=== PATIENT | male | born 1950 | race Caucasian/White ===

== ENCOUNTER → 2016-07-03 | Outpatient (CLI) | payer OTHER ==
[2016-07-03 13:01] LABS: INR 2.72
== END ==
LOC: M LAB 12:04
PROVIDERS: ATTEND Physician Assistant
DX: I48.91 Unspecified atrial fibrillation (principal)

== ENCOUNTER → 2016-08-02 | Outpatient (CLI) | payer MEDICARE, OTHER ==
[2016-08-02 15:28] LABS: INR 2.56
== END ==
LOC: M LAB 15:05
PROVIDERS: ATTEND Physician Assistant
DX: I48.91 Unspecified atrial fibrillation (principal)

== ENCOUNTER → 2016-08-30 | Outpatient (CLI) | payer OTHER ==
[2016-08-30 17:50] LABS: INR 2.15
== END ==
LOC: M LAB 16:28
PROVIDERS: ATTEND Physician Assistant
DX: I48.91 Unspecified atrial fibrillation (principal)

== ENCOUNTER → 2016-10-30 | Outpatient (CLI) | payer OTHER ==
[2016-10-30 14:59] LABS: INR 2.23
== END ==
LOC: M LAB 13:56
PROVIDERS: ATTEND Physician Assistant
DX: I48.91 Unspecified atrial fibrillation (principal)

== ENCOUNTER → 2016-11-26 | Outpatient (CLI) | payer OTHER ==
[2016-11-26 10:02] LABS: INR 2.19
[2016-11-26 10:12] LABS: MEAN CORPUSCULAR HEMOGLOBIN 34.3 pg (27.0-33.0); MEAN CORPUSCULAR HGB CONC 34.1 g/dl (32.0-36.5); MEAN CORPUSCULAR VOLUME 100.5 fl (80.0-96.0); RED CELL DISTRIBUTION WIDTH 12.9 % (11.5-14.5); WHITE BLOOD COUNT 8.2 K/mm3 (4.0-10.0)
== END ==
LOC: M LAB 09:33
PROVIDERS: ATTEND Nurse Practitioner Family
DX: I48.91 Unspecified atrial fibrillation (principal)

== ENCOUNTER → 2016-12-03 | Outpatient (CLI) | payer OTHER ==
[2016-12-03 13:00] LABS: INR 1.91
== END ==
LOC: M LAB 11:21
PROVIDERS: ATTEND Physician Assistant
DX: I48.91 Unspecified atrial fibrillation (principal)

== ENCOUNTER → 2016-12-12 | Outpatient (CLI) | payer OTHER ==
[2016-12-12 12:32] LABS: INR 2.12
[2016-12-12 12:45] LABS: MEAN CORPUSCULAR HEMOGLOBIN 34.3 pg (27.0-33.0); MEAN CORPUSCULAR HGB CONC 33.8 g/dl (32.0-36.5); MEAN CORPUSCULAR VOLUME 101.2 fl (80.0-96.0); RED CELL DISTRIBUTION WIDTH 12.6 % (11.5-14.5); WHITE BLOOD COUNT 8.8 K/mm3 (4.0-10.0)
[2016-12-12 12:58] LABS: ALBUMIN 3.7 GM/DL (3.2-5.2); ALBUMIN/GLOBULIN RATIO 1.16 (1.00-1.93); ALKALINE PHOSPHATASE 43 U/L (45-117); ALT/SGPT 36 U/L (12-78); ANION GAP 6 MEQ/L (8-16); AST/SGOT 26 U/L (15-37); BILIRUBIN,TOTAL 1.1 MG/DL (0.2-1.0); BLOOD UREA NITROGEN 17 MG/DL (7-18); CALCIUM LEVEL 8.9 MG/DL (8.8-10.2); CARBON DIOXIDE LEVEL 28 MEQ/L (21-32); CHLORIDE LEVEL 109 MEQ/L (98-107); CHOLESTEROL LEVEL 155 MG/DL (<200); CREATININE FOR GFR 0.93 MG/DL (0.70-1.30); GLOMERULAR FILTRATION RATE > 60.0 (>49); GLUCOSE, FASTING 90 MG/DL (80-110); POTASSIUM SERUM 4.5 MEQ/L (3.5-5.1); SODIUM LEVEL 143 MEQ/L (136-145); TOTAL PROTEIN 6.9 GM/DL (6.4-8.2); TRIGLYCERIDES LEVEL 56 MG/DL (<150)
== END ==
LOC: M LAB 11:25
PROVIDERS: ATTEND Family Medicine
DX: I10 Essential (primary) hypertension (principal); Z79.01 Long term (current) use of anticoagulants; R73.01 Impaired fasting glucose

== ENCOUNTER → 2016-12-24 | Outpatient (CLI) | payer OTHER ==
[2016-12-24 14:41] LABS: INR 1.78
== END ==
LOC: M LAB 13:50
PROVIDERS: ATTEND Physician Assistant
DX: I48.91 Unspecified atrial fibrillation (principal)

== ENCOUNTER → 2017-01-07 | Outpatient (CLI) | payer OTHER ==
[2017-01-07 13:45] LABS: INR 2.33
== END ==
LOC: M LAB 12:58
PROVIDERS: ATTEND Physician Assistant
DX: I48.91 Unspecified atrial fibrillation (principal)

== ENCOUNTER → 2017-01-28 | Outpatient (CLI) | payer OTHER ==
[2017-01-28 14:02] LABS: INR 2.38
== END ==
LOC: M LAB 13:17
PROVIDERS: ATTEND Physician Assistant
DX: I48.91 Unspecified atrial fibrillation (principal)

== ENCOUNTER → 2017-01-28 | Outpatient (CLI) | payer OTHER ==
[2017-01-30 00:07] LABS: Lyme Disease IgG/IgM Antibodie <0.91 ISR (0.00-0.90); Lyme Disease IgM Ab Quantitati <0.80 index (0.00-0.79)
== END ==
LOC: M LAB 13:13
PROVIDERS: ATTEND Family Medicine
DX: R53.83 Other fatigue (principal); Z79.01 Long term (current) use of anticoagulants; I48.91 Unspecified atrial fibrillation

== ENCOUNTER → 2017-02-25 | Outpatient (CLI) | payer OTHER ==
[2017-02-25 15:06] LABS: INR 2.28
== END ==
LOC: M LAB 14:14
PROVIDERS: ATTEND Physician Assistant
DX: I48.91 Unspecified atrial fibrillation (principal)

== ENCOUNTER → 2017-03-27 | Outpatient (CLI) | payer OTHER ==
[2017-03-27 15:33] LABS: INR 1.96
== END ==
LOC: M LAB 14:58
PROVIDERS: ATTEND Nurse Practitioner Family
DX: I48.91 Unspecified atrial fibrillation (principal)

== ENCOUNTER → 2017-03-31 | Outpatient (CLI) | payer OTHER ==
--- NOTE | 2017-03-31 14:39 | REP ---
Chest x-ray: Two views. History: Fatigue. Comparison chest x-ray November 28, 2015. Findings: There is moderate to marked cardiac enlargement again noted unchanged from the comparison radiograph. Prior sternotomy wires are seen in there is evidence of an epicardial pacemaker wire overlying the heart. The aorta is somewhat tortuous. There is evidence of left atrial enlargement. These are unchanged findings. The lungs are symmetrically aerated and free of infiltrate. The diaphragms are flattened consistent with hyperinflation. Thoracic kyphosis is exaggerated and there are several minimal wedged thoracic vertebrae along with degenerative disc disease. This is unchanged as well. There are slightly prominent interstitial markings. Impression: Moderate to marked cardiomegaly. Postoperative changes. Hyperinflation. Prominent interstitial markings, edema versus fibrosis. These appear slightly more prominent than on the comparison radiograph. No visible pleural effusion. No focal infiltrate. Signed by Pola Balderas MD 03/31/2017 03:09 P
[2017-03-31 18:13] LABS: INR 2.39; MEAN CORPUSCULAR HEMOGLOBIN 33.3 pg (27.0-33.0); MEAN CORPUSCULAR HGB CONC 33.4 g/dl (32.0-36.5); MEAN CORPUSCULAR VOLUME 99.8 fl (80.0-96.0); PLATELET COUNT, AUTOMATED 266 10^3/uL (150-450); RED CELL DISTRIBUTION WIDTH 12.7 % (11.5-14.5); WHITE BLOOD COUNT 10.8 10^3/uL (4.0-10.0)
[2017-03-31 18:14] LABS: ADD MANUAL DIFFER YES; DIFF SLIDE NUMBER 116; POSITIVE DIFF POS FLAG
[2017-03-31 18:27] LABS: ALBUMIN 3.4 GM/DL (3.2-5.2); ALBUMIN/GLOBULIN RATIO 0.87 (1.00-1.93); ALKALINE PHOSPHATASE 60 U/L (45-117); ALT/SGPT 48 U/L (12-78); ANION GAP 9 MEQ/L (8-16); AST/SGOT 38 U/L (15-37); BILIRUBIN,TOTAL 1.2 MG/DL (0.2-1.0); BLOOD UREA NITROGEN 11 MG/DL (7-18); CARBON DIOXIDE LEVEL 29 MEQ/L (21-32); CHLORIDE LEVEL 103 MEQ/L (98-107); CREATININE FOR GFR 0.96 MG/DL (0.70-1.30); GLOMERULAR FILTRATION RATE > 60.0 (>49); GLUCOSE, FASTING 80 MG/DL (80-110); POTASSIUM SERUM 4.3 MEQ/L (3.5-5.1); SODIUM LEVEL 141 MEQ/L (136-145); TOTAL PROTEIN 7.3 GM/DL (6.4-8.2)
[2017-04-03 08:06] LABS: Lyme Disease IgG/IgM Antibodie <0.91 ISR (0.00-0.90); Lyme Disease IgM Ab Quantitati <0.80 index (0.00-0.79)
== END ==
LOC: M WUC 13:52
PROVIDERS: ATTEND Physician Assistant
DX: R53.83 Other fatigue (principal); Z79.01 Long term (current) use of anticoagulants

== ENCOUNTER → 2017-04-25 | Outpatient (CLI) | payer OTHER ==
[2017-04-25 09:28] LABS: INR 2.26
== END ==
LOC: M LAB 08:25
PROVIDERS: ATTEND Nurse Practitioner Family
DX: I48.91 Unspecified atrial fibrillation (principal)

== ENCOUNTER → 2017-05-23 | Outpatient (CLI) | payer OTHER ==
[2017-05-23 11:50] LABS: INR 2.39
== END ==
LOC: M LAB 11:09
PROVIDERS: ATTEND Nurse Practitioner Family
DX: Z79.01 Long term (current) use of anticoagulants (principal); I48.91 Unspecified atrial fibrillation

== ENCOUNTER → 2017-06-24 | Outpatient (CLI) | payer OTHER ==
[2017-06-24 13:37] LABS: INR 2.15; PROTHROMBIN TIME 24.8 SECONDS (12.4-14.5)
== END ==
LOC: M LAB 12:15
DX: I48.91 Unspecified atrial fibrillation (principal)
CPT/HCPCS: 85610

== ENCOUNTER → 2017-07-11 | Outpatient (CLI) | payer OTHER ==
[2017-07-11 14:25] LABS: INR 2.21; PROTHROMBIN TIME 25.3 SECONDS (12.4-14.5)
== END ==
LOC: M LAB 13:23
DX: I48.91 Unspecified atrial fibrillation (principal); Z79.01 Long term (current) use of anticoagulants
CPT/HCPCS: 85610

== ENCOUNTER → 2017-07-16 | Outpatient (CLI) | payer OTHER ==
[2017-07-16 11:50] LABS: INR 2.39
== END ==
LOC: M LAB 11:10
DX: I48.91 Unspecified atrial fibrillation (principal)
CPT/HCPCS: 85610

== ENCOUNTER → 2017-07-22 | Outpatient (CLI) | payer OTHER ==
[2017-07-22 13:40] LABS: INR 2.17
== END ==
LOC: M LAB 12:43
DX: I48.91 Unspecified atrial fibrillation (principal)
CPT/HCPCS: 85610

== ENCOUNTER 2017-08-08 12:38 | Day surgery (SDC) | payer OTHER ==
[2017-08-08] MEDS ORDERED: CETACAINE SPRAY 5GM As Ordered (13:15)
[2017-08-08] MEDS ORDERED: LIDOCAINE VISCOUS 2% SOLN 15ML UDC As Ordered (13:16)
[2017-08-08] MEDS: NS 1,000 ML IV (13:45)
[2017-08-08] MEDS ORDERED: MIDAZOLAM INJ 2 MG/2 ML VIAL (J2250) As Ordered ×2 (14:01)
[2017-08-08] MEDS: MIDAZOLAM INJ 2 MG/2 ML VIAL (J2250) IV (14:07)
== END 2017-08-08 15:01 | disposition home or self-care (01) ==
LOC: M OPP 12:38
DX: I34.0 Nonrheumatic mitral (valve) insufficiency (principal)
CPT/HCPCS: J2250

== ENCOUNTER → 2017-08-19 | Outpatient (CLI) | payer OTHER ==
[2017-08-19 15:03] LABS: INR 1.54; PROTHROMBIN TIME 18.9 SECONDS (12.4-14.5)
== END ==
LOC: M LAB 14:15
DX: I48.91 Unspecified atrial fibrillation (principal)
CPT/HCPCS: 85610

== ENCOUNTER → 2017-08-26 | Outpatient (CLI) | payer OTHER ==
[2017-08-26 12:36] LABS: INR 1.88; PROTHROMBIN TIME 22.2 SECONDS (12.4-14.5)
== END ==
LOC: M LAB 11:54
DX: I48.91 Unspecified atrial fibrillation (principal)
CPT/HCPCS: 85610

== ENCOUNTER → 2017-09-09 | Outpatient (CLI) | payer OTHER ==
[2017-09-09 12:06] LABS: INR 2.13; PROTHROMBIN TIME 24.6 SECONDS (12.4-14.5)
== END ==
LOC: M LAB 11:20
DX: I48.91 Unspecified atrial fibrillation (principal)
CPT/HCPCS: 85610

== ENCOUNTER → 2017-09-30 | Outpatient (CLI) | payer OTHER ==
[2017-09-30 14:50] LABS: INR 2.04; PROTHROMBIN TIME 23.7 SECONDS (12.4-14.5)
== END ==
LOC: M LAB 14:10
DX: I48.91 Unspecified atrial fibrillation (principal); Z79.01 Long term (current) use of anticoagulants
CPT/HCPCS: 85610

== ENCOUNTER → 2017-10-29 | Outpatient (CLI) | payer OTHER ==
[2017-10-29 11:45] LABS: INR 2.14; PROTHROMBIN TIME 24.6 SECONDS (12.4-14.5)
== END ==
LOC: M LAB 10:55
DX: I48.91 Unspecified atrial fibrillation (principal)
CPT/HCPCS: 85610

== ENCOUNTER → 2017-11-26 | Outpatient (CLI) | payer MEDICARE, OTHER ==
[2017-11-26 09:49] LABS: INR 2.45; PROTHROMBIN TIME 27.6 SECONDS (12.4-14.5)
== END ==
LOC: M LAB 08:43
DX: I48.91 Unspecified atrial fibrillation (principal)
CPT/HCPCS: 85610

== ENCOUNTER → 2017-12-19 | Outpatient (CLI) | payer OTHER ==
[2017-12-19 14:11] LABS: INR 1.84; PROTHROMBIN TIME 21.6 SECONDS (12.1-14.4)
== END ==
LOC: M LAB 12:39
DX: I48.91 Unspecified atrial fibrillation (principal)
CPT/HCPCS: 85610

== ENCOUNTER → 2018-01-02 | Outpatient (CLI) | payer OTHER ==
[2018-01-02 10:59] LABS: INR 2.78; PROTHROMBIN TIME 29.9 SECONDS (12.1-14.4)
== END ==
LOC: M LAB 10:11
DX: I48.91 Unspecified atrial fibrillation (principal); Z79.01 Long term (current) use of anticoagulants
CPT/HCPCS: 85610

== ENCOUNTER → 2018-01-09 | Outpatient (CLI) | payer OTHER ==
[2018-01-09 10:51] LABS: HEMATOCRIT 44.2 % (42.0-52.0); HEMOGLOBIN 14.8 g/dl (13.5-17.5); MEAN CORPUSCULAR HEMOGLOBIN 33.1 pg (27.0-33.0); MEAN CORPUSCULAR HGB CONC 33.5 g/dl (32.0-36.5); MEAN CORPUSCULAR VOLUME 98.9 fl (80.0-96.0); PLATELET COUNT, AUTOMATED 139 10^3/uL (150-450); RED BLOOD COUNT 4.47 10^6/uL (4.30-6.10); RED CELL DISTRIBUTION WIDTH 13.2 % (11.5-14.5); WHITE BLOOD COUNT 7.9 10^3/uL (4.0-10.0)
[2018-01-09 11:22] LABS: ALBUMIN 3.8 GM/DL (3.2-5.2); ALBUMIN/GLOBULIN RATIO 1.12 (1.00-1.93); ALKALINE PHOSPHATASE 46 U/L (45-117); ALT/SGPT 31 U/L (12-78); ANION GAP 10 MEQ/L (8-16); AST/SGOT 20 U/L (7-37); BLOOD UREA NITROGEN 23 MG/DL (7-18); CALCIUM LEVEL 8.6 MG/DL (8.8-10.2); CARBON DIOXIDE LEVEL 23 MEQ/L (21-32); CHLORIDE LEVEL 109 MEQ/L (98-107); CHOLESTEROL LEVEL 184 MG/DL (<200); CHOLESTEROL RISK RATIO 4.181 (<5); CREATININE FOR GFR 1.05 MG/DL (0.70-1.30); GLOMERULAR FILTRATION RATE > 60.0 (>49); GLUCOSE, FASTING 95 MG/DL (70-100); HDL CHOLESTEROL 44 MG/DL (>40); LDL CHOLESTEROL 122.6 MG/DL (<100); NON-HDL-C 140 MG/DL; POTASSIUM SERUM 4.3 MEQ/L (3.5-5.1); PROSTATIC SPECIFIC AG MONITOR 5.63 NG/ML (< 4.0); SODIUM LEVEL 142 MEQ/L (136-145); TOTAL PROTEIN 7.2 GM/DL (6.4-8.2); TRIGLYCERIDES LEVEL 87 MG/DL (<150)
[2018-01-09 11:28] LABS: TESTOSTERONE 231 NG/DL (241-827); TOTAL 25(OH) VITAMIN D 60.2 NG/ML (30.0-100.0)
[2018-01-09 12:17] LABS: ESTIMATED AVERAGE GLUCOSE 126 MG/DL (60-110)
== END ==
LOC: M LAB 10:11
DX: I11.9 Hypertensive heart disease without heart failure (principal); E11.9 Type 2 diabetes mellitus without complications; N40.0 Benign prostatic hyperplasia without lower urinary tract symptoms
CPT/HCPCS: 71046

== ENCOUNTER → 2018-01-21 | Outpatient (REF) | payer OTHER, MEDICARE ==
[2018-01-21 12:29] LABS: AMORPHOUS SEDIMENT SMALL (NEGATIVE); APPEARANCE, URINE TURBID (CLEAR); BACTERIA, URINE AUTO NEGATIVE (NEGATIVE); BILIRUBIN, URINE AUTO NEGATIVE (NEGATIVE); BLOOD, URINE BLOOD NEGATIVE (NEGATIVE); COLOR, URINE AMBER (YELLOW); GLUCOSE, URINE (UA) AUTO NEGATIVE (NEGATIVE); KETONE, URINE AUTO NEGATIVE (NEGATIVE); LEUKOCYTE ESTERASE, URINE AUTO NEGATIVE (NEGATIVE); MUCUS, URINE SMALL (NEGATIVE); NITRITE, URINE AUTO NEGATIVE (NEGATIVE); PROTEIN, URINE AUTO NEGATIVE (NEGATIVE); RBC, URINE AUTO 0 /HPF (0-3); SPECIFIC GRAVITY URINE AUTO 1.024 (1.002-1.035); SQUAMOUS EPITHELIAL CELL UR AU 0 /HPF (0-6); UROBILINOGEN, URINE AUTO 0.2 mg/dL (0.0-2.0); WBC, URINE AUTO 1 /HPF (0-3)
== END ==
LOC: M SMT 12:10
DX: R97.20 Elevated prostate specific antigen [PSA] (principal); Z79.899 Other long term (current) drug therapy
CPT/HCPCS: 81001

== ENCOUNTER → 2018-01-31 | Outpatient (CLI) | payer OTHER, MEDICARE | LOC: M SMT PRO 09:00 | DX: R97.20 Elevated prostate specific antigen [PSA] (principal) | CPT/HCPCS: G0416 ==

== ENCOUNTER → 2018-02-18 | Outpatient (CLI) | payer MEDICARE, OTHER ==
[2018-02-18 16:02] LABS: INR 2.06; PROTHROMBIN TIME 23.6 SECONDS (12.1-14.4)
== END ==
LOC: M LAB 15:14
DX: I48.91 Unspecified atrial fibrillation (principal)
CPT/HCPCS: 85610

== ENCOUNTER 2018-03-10 11:27 | Day surgery (SDC) | payer OTHER ==
[2018-03-10] MEDS: NS 1,000 ML IV (08:00)
== END 2018-03-10 14:02 | disposition home or self-care (01) ==
LOC: M OPP 11:27
DX: Z12.11 Encounter for screening for malignant neoplasm of colon (principal); K64.0 First degree hemorrhoids; K57.30 Diverticulosis of large intestine without perforation or abscess without bleeding; I10 Essential (primary) hypertension; Z86.79 Personal history of other diseases of the circulatory system; M19.90 Unspecified osteoarthritis, unspecified site; M62.831 Muscle spasm of calf; Z87.442 Personal history of urinary calculi; N40.1 Benign prostatic hyperplasia with lower urinary tract symptoms; Z79.01 Long term (current) use of anticoagulants; Z79.899 Other long term (current) drug therapy
CPT/HCPCS: G0121

== ENCOUNTER → 2018-03-18 | Outpatient (CLI) | payer OTHER ==
[2018-03-18 16:37] LABS: INR 2.15; PROTHROMBIN TIME 24.4 SECONDS (12.1-14.4)
== END ==
LOC: M LAB 15:08
DX: I48.91 Unspecified atrial fibrillation (principal)
CPT/HCPCS: 85610

== ENCOUNTER → 2018-04-16 | Outpatient (CLI) | payer OTHER ==
[2018-04-16 15:30] LABS: INR 2.87; PROTHROMBIN TIME 30.7 SECONDS (12.1-14.4)
== END ==
LOC: M LAB 14:29
DX: I48.91 Unspecified atrial fibrillation (principal)
CPT/HCPCS: 85610

== ENCOUNTER → 2018-05-19 | Outpatient (CLI) | payer OTHER ==
[2018-05-19 14:27] LABS: INR 2.49; PROTHROMBIN TIME 27.4 SECONDS (12.1-14.4)
== END ==
LOC: M LAB 13:22
DX: I48.91 Unspecified atrial fibrillation (principal)
CPT/HCPCS: 85610

== ENCOUNTER → 2018-07-04 | Outpatient (CLI) | payer MEDICARE ==
[~2018-07-04] MED LIST: ATEN25TA PO; COUM1TAB17 PO; MULTCAP12 PO; OMEG100011 PO; VITA200038 PO; VITA250L PO; ZOCO20TA PO; [UNRECOGNIZED DRUG - CODE] PO
[2018-07-04 12:44] LABS: PROSTATIC SPECIFIC AG MONITOR 5.05 NG/ML (< 4.00); THYROID STIMULATING HORMONE 1.6 uIU/ML (0.358-3.740)
[2018-07-04 13:26] LABS: HEMOGLOBIN A1c 5.8 %
== END ==
LOC: M LAB 11:27
PROVIDERS: ATTEND Family Medicine
DX: R53.83 Other fatigue (principal); Z79.899 Other long term (current) drug therapy

== ENCOUNTER → 2018-07-21 | Outpatient (CLI) | payer MEDICARE ==
[2018-07-21 14:53] LABS: HEMATOCRIT 43.6 % (42.0-52.0); HEMOGLOBIN 14.8 g/dl (13.5-17.5); MEAN CORPUSCULAR HEMOGLOBIN 34.1 pg (27.0-33.0); MEAN CORPUSCULAR HGB CONC 33.9 g/dl (32.0-36.5); MEAN CORPUSCULAR VOLUME 100.5 fl (80.0-96.0); PLATELET COUNT, AUTOMATED 141 10^3/uL (150-450); RED BLOOD COUNT 4.34 10^6/uL (4.30-6.10); WHITE BLOOD COUNT 7.7 10^3/uL (4.0-10.0)
[2018-07-21 15:07] LABS: BLOOD UREA NITROGEN 17 MG/DL (7-18); CALCIUM LEVEL 8.3 MG/DL (8.8-10.2); CARBON DIOXIDE LEVEL 25 MEQ/L (21-32); CHLORIDE LEVEL 109 MEQ/L (98-107); CREATININE FOR GFR 0.95 MG/DL (0.70-1.30); GLOMERULAR FILTRATION RATE > 60.0 (>49); GLUCOSE, FASTING 80 MG/DL (70-100); MAGNESIUM LEVEL 2.4 MG/DL (1.8-2.4); POTASSIUM SERUM 4.2 MEQ/L (3.5-5.1); SODIUM LEVEL 142 MEQ/L (136-145)
[2018-07-21 15:08] LABS: INR 2.64; PROTHROMBIN TIME 28.7 SECONDS (12.1-14.4)
== END ==
LOC: M LAB 14:16
PROVIDERS: ATTEND Physician Assistant
DX: I48.2 Chronic atrial fibrillation (principal); I11.9 Hypertensive heart disease without heart failure

== ENCOUNTER → 2018-08-19 | Outpatient (CLI) | payer MEDICARE ==
[2018-08-19 15:05] LABS: INR 2.78; PROTHROMBIN TIME 29.9 SECONDS (12.1-14.4)
== END ==
LOC: M LAB 14:23
PROVIDERS: ATTEND Physician Assistant
DX: I48.91 Unspecified atrial fibrillation (principal)

== ENCOUNTER → 2018-09-17 | Outpatient (CLI) | payer MEDICARE ==
[2018-09-17 14:24] LABS: INR 2.69; PROTHROMBIN TIME 29.2 SECONDS (12.1-14.4)
== END ==
LOC: M LAB 13:47
PROVIDERS: ATTEND Physician Assistant
DX: I48.91 Unspecified atrial fibrillation (principal)

== ENCOUNTER → 2018-10-15 | Outpatient (CLI) | payer MEDICARE ==
[2018-10-15 13:02] LABS: INR 2.56
== END ==
LOC: M LAB 12:02
PROVIDERS: ATTEND Physician Assistant
DX: I48.91 Unspecified atrial fibrillation (principal)

== ENCOUNTER 2018-11-07 21:34 | Emergency (ER) | payer MEDICARE ==
[~2018-11-07] VITALS: Ht 167.6 cm; Wt 79.1 kg
[2018-11-07 22:57] VITALS: BP 135/73
== END 2018-11-07 23:22 | disposition home or self-care (01) ==
LOC: M ED 21:34
DX: S31.33XA Puncture wound without foreign body of scrotum and testes, initial encounter (principal); X58.XXXA Exposure to other specified factors, initial encounter; Y92.89 Other specified places as the place of occurrence of the external cause; I10 Essential (primary) hypertension; I48.91 Unspecified atrial fibrillation; Z79.899 Other long term (current) drug therapy; Z79.01 Long term (current) use of anticoagulants

== ENCOUNTER → 2018-11-17 | Outpatient (CLI) | payer MEDICARE ==
[2018-11-17 11:36] LABS: INR 2.14; PROTHROMBIN TIME 24.3 SECONDS (12.1-14.4)
== END ==
LOC: M LAB 10:57
PROVIDERS: ATTEND Physician Assistant
DX: I48.91 Unspecified atrial fibrillation (principal)

== ENCOUNTER → 2018-12-15 | Outpatient (CLI) | payer MEDICARE ==
[2018-12-15 14:41] LABS: INR 2.54; PROTHROMBIN TIME 27.2 SECONDS (11.8-14.0)
== END ==
LOC: M LAB 13:47
PROVIDERS: ATTEND Physician Assistant
DX: I48.2 Chronic atrial fibrillation (principal); Z79.01 Long term (current) use of anticoagulants

== ENCOUNTER → 2019-01-22 | Outpatient (CLI) | payer MEDICARE ==
[2019-01-22 12:08] LABS: HEMATOCRIT 42.7 % (42.0-52.0); HEMOGLOBIN 14.2 g/dl (13.5-17.5); MEAN CORPUSCULAR HEMOGLOBIN 33.4 pg (27.0-33.0); MEAN CORPUSCULAR HGB CONC 33.3 g/dl (32.0-36.5); MEAN CORPUSCULAR VOLUME 100.5 fl (80.0-96.0); PLATELET COUNT, AUTOMATED 140 10^3/uL (150-450); RED BLOOD COUNT 4.25 10^6/uL (4.30-6.10); WHITE BLOOD COUNT 6.7 10^3/uL (4.0-10.0)
[2019-01-22 12:31] LABS: BLOOD UREA NITROGEN 16 MG/DL (7-18); CALCIUM LEVEL 8.9 MG/DL (8.8-10.2); CARBON DIOXIDE LEVEL 27 MEQ/L (21-32); CHLORIDE LEVEL 111 MEQ/L (98-107); CREATININE FOR GFR 0.95 MG/DL (0.70-1.30); GLOMERULAR FILTRATION RATE > 60.0 (>49); GLUCOSE, FASTING 90 MG/DL (70-100); MAGNESIUM LEVEL 2.2 MG/DL (1.8-2.4); POTASSIUM SERUM 4.4 MEQ/L (3.5-5.1); SODIUM LEVEL 143 MEQ/L (136-145)
== END ==
LOC: M LAB 10:07
PROVIDERS: ATTEND Physician Assistant
DX: I48.2 Chronic atrial fibrillation (principal); I11.9 Hypertensive heart disease without heart failure

== ENCOUNTER → 2019-01-22 | Outpatient (CLI) | payer MEDICARE ==
[2019-01-22 12:45] LABS: PROSTATIC SPECIFIC AG MONITOR 4.03 NG/ML (< 4.00); THYROID STIMULATING HORMONE 2.29 uIU/ML (0.358-3.740)
--- NOTE | 2019-01-23 01:10 | REP ---
Clinical: Hypertension and fatigue Technique: PA and lateral. Comparison: 01/09/2018. Findings: Generalized cardiomegaly is again appreciated. Chronic pulmonary vascular congestion cannot be excluded. No focal consolidation. No effusion. No pneumothorax. Skeletal structures are intact. Evidence for prior sternotomy. Impression: Stable cardiomegaly and chronic pulmonary vascular congestion. No acute process appreciated. Electronically Signed by Reji Peraza MD 01/23/2019 01:01 A
== END ==
LOC: M LAB 10:01
PROVIDERS: ATTEND Family Medicine
DX: R91.8 Other nonspecific abnormal finding of lung field (principal); R53.83 Other fatigue; I51.7 Cardiomegaly; I48.2 Chronic atrial fibrillation

== ENCOUNTER → 2019-01-22 | Outpatient (CLI) | payer MEDICARE ==
[2019-01-22 12:14] LABS: INR 2.62; PROTHROMBIN TIME 27.9 SECONDS (11.8-14.0)
== END ==
LOC: M LAB 10:04
PROVIDERS: ATTEND Physician Assistant
DX: I48.91 Unspecified atrial fibrillation (principal)

== ENCOUNTER → 2019-02-19 | Outpatient (CLI) | payer MEDICARE ==
[2019-02-19 12:59] LABS: INR 2.67; PROTHROMBIN TIME 28.3 SECONDS (11.8-14.0)
== END ==
LOC: M LAB 11:48
PROVIDERS: ATTEND Physician Assistant
DX: I48.91 Unspecified atrial fibrillation (principal)

== ENCOUNTER → 2019-03-19 | Outpatient (CLI) | payer MEDICARE ==
[2019-03-19 15:14] LABS: INR 2.71; PROTHROMBIN TIME 28.6 SECONDS (11.8-14.0)
== END ==
LOC: M LAB 13:20
PROVIDERS: ATTEND Physician Assistant
DX: I48.91 Unspecified atrial fibrillation (principal)

== ENCOUNTER → 2019-04-16 | Outpatient (CLI) | payer MEDICARE ==
[2019-04-16 15:40] LABS: INR 2.8; PROTHROMBIN TIME 29.4 SECONDS (11.8-14.0)
== END ==
LOC: M LAB 14:21
PROVIDERS: ATTEND Physician Assistant
DX: I48.91 Unspecified atrial fibrillation (principal)

== ENCOUNTER → 2019-05-19 | Outpatient (CLI) | payer MEDICARE ==
[2019-05-19 15:08] LABS: INR 4.19; PROTHROMBIN TIME 40.6 SECONDS (11.8-14.0)
== END ==
LOC: M LAB 14:10
PROVIDERS: ATTEND Physician Assistant
DX: I48.91 Unspecified atrial fibrillation (principal)

== ENCOUNTER → 2019-05-26 | Outpatient (CLI) | payer MEDICARE ==
[2019-05-26 15:35] LABS: INR 3.17; PROTHROMBIN TIME 32.5 SECONDS (11.8-14.0)
== END ==
LOC: M LAB 14:12
PROVIDERS: ATTEND Internal Medicine Cardiovascular Disease
DX: I48.91 Unspecified atrial fibrillation (principal)

== ENCOUNTER → 2019-06-18 | Outpatient (CLI) | payer MEDICARE ==
[2019-06-18 15:23] LABS: HEMATOCRIT 46.1 % (42.0-52.0); HEMOGLOBIN 14.6 g/dl (13.5-17.5); MEAN CORPUSCULAR HEMOGLOBIN 32.7 pg (27.0-33.0); MEAN CORPUSCULAR HGB CONC 31.7 g/dl (32.0-36.5); MEAN CORPUSCULAR VOLUME 103.4 fl (80.0-96.0); PLATELET COUNT, AUTOMATED 127 10^3/uL (150-450); RED BLOOD COUNT 4.46 10^6/uL (4.30-6.10); WHITE BLOOD COUNT 7.8 10^3/uL (4.0-10.0)
[2019-06-18 15:33] LABS: INR 2.07; PROTHROMBIN TIME 23.1 SECONDS (11.8-14.0)
[2019-06-18 15:35] LABS: BLOOD UREA NITROGEN 22 MG/DL (7-18); CALCIUM LEVEL 9.2 MG/DL (8.8-10.2); CARBON DIOXIDE LEVEL 25 MEQ/L (21-32); CHLORIDE LEVEL 111 MEQ/L (98-107); CREATININE FOR GFR 1.09 MG/DL (0.70-1.30); GLOMERULAR FILTRATION RATE > 60.0 (>49); GLUCOSE, FASTING 79 MG/DL (70-100); MAGNESIUM LEVEL 2.3 MG/DL (1.8-2.4); POTASSIUM SERUM 4.6 MEQ/L (3.5-5.1); SODIUM LEVEL 143 MEQ/L (136-145)
== END ==
LOC: M LAB 14:00
PROVIDERS: ATTEND Physician Assistant
DX: I48.91 Unspecified atrial fibrillation (principal)

== ENCOUNTER → 2019-07-20 | Outpatient (CLI) | payer MEDICARE ==
[2019-07-20 14:04] LABS: INR 1.98; PROTHROMBIN TIME 22.3 SECONDS (11.8-14.0)
== END ==
LOC: M LAB 11:56
PROVIDERS: ATTEND Physician Assistant
DX: I48.91 Unspecified atrial fibrillation (principal)

== ENCOUNTER → 2019-08-03 | Outpatient (CLI) | payer MEDICARE ==
[2019-08-03 15:49] LABS: INR 2.09; PROTHROMBIN TIME 23.3 SECONDS (11.8-14.0)
== END ==
LOC: M LAB 13:50
PROVIDERS: ATTEND Physician Assistant
DX: I48.91 Unspecified atrial fibrillation (principal)

== ENCOUNTER 2019-08-08 08:01 | Inpatient (IN) | payer MEDICARE ==
[~2019-08-08] VITALS: Ht 167.6 cm; Wt 82.7 kg
[2019-08-08 08:39] LABS: BASO % 0.1 % (0.0-1.0); EOS % 0.1 % (0.0-3.0); HEMATOCRIT 48.3 % (42.0-52.0); HEMOGLOBIN 15.8 g/dl (13.5-17.5); LYMPH # 1.1 10^3/uL (1.5-5.0); LYMPH % 7.4 % (24.0-44.0); MEAN CORPUSCULAR HEMOGLOBIN 33.3 pg (27.0-33.0); MEAN CORPUSCULAR HGB CONC 32.7 g/dl (32.0-36.5); MEAN CORPUSCULAR VOLUME 101.7 fl (80.0-96.0); MONO # 1.6 10^3/uL (0.0-0.8); MONO % 10.9 % (0.0-5.0); NEUTROPHILS # 11.5 10^3/uL (1.5-8.5); NEUTROPHILS % 80.8 % (36.0-66.0); PLATELET COUNT, AUTOMATED 164 10^3/uL (150-450); RED BLOOD COUNT 4.75 10^6/uL (4.30-6.10); WHITE BLOOD COUNT 14.2 10^3/uL (4.0-10.0)
--- NOTE | 2019-08-08 08:57 | REP ---
Portable chest, 08:37 a.m., single AP view the patient semi upright: Comparison is the PA and lateral chest of 01/22/2019. There is diffuse interstitial coarsening as an interval change compatible with interstitial infiltrates. The right costophrenic angle is effaced as an interval change suggestive of a small right pleural effusion. Cardiomegaly and sternotomy wires are unchanged. Impression: Chronic cardiomegaly. Sternotomy wires. New diffuse bilateral interstitial coarsening. New effacement right c costophrenic angle. Electronically Signed by Jhonatan Mcknight MD 08/08/2019 08:48 A
[2019-08-08 09:00] LABS: CALCIUM LEVEL 8.8 MG/DL (8.8-10.2); CREATININE FOR GFR 1.32 MG/DL (0.70-1.30); GLOMERULAR FILTRATION RATE 57.3 (>49); POTASSIUM SERUM 4.7 MEQ/L (3.5-5.1)
[2019-08-08] MEDS ORDERED: FUROSEMIDE 100 MG/10 ML VIAL (J1940) IV SCH (09:00)
[2019-08-08 09:03] LABS: INFLUENZA A AMPLIFICATION NEGATIVE (NEGATIVE); INFLUENZA B AMPLIFICATION NEGATIVE (NEGATIVE)
[2019-08-08 09:46] LABS: ALBUMIN 3.8 GM/DL (3.2-5.2); BILIRUBIN,DIRECT 0.5 MG/DL (0.0-0.2); MB/CK RELATIVE INDEX 2.83 (< OR =4); THYROID STIMULATING HORMONE 1.99 uIU/ML (0.358-3.740); TOTAL PROTEIN 6.9 GM/DL (6.4-8.2); TROPONIN I 0.03 NG/ML (< 0.10)
[2019-08-08 09:51] LABS: INR 2.04; PROTHROMBIN TIME 22.8 SECONDS (11.8-14.0)
[2019-08-08 09:52] LABS: PARTIAL THROMBOPLASTIN TIME 33.2 SECONDS (25.0-38.4)
[2019-08-08] MEDS ORDERED: FUROSEMIDE 20 MG/2 ML VIAL (J1940) IV ONE (10:00)
[2019-08-08] MEDS ORDERED: CENT1TAB2 PO (10:20)
[2019-08-08] MEDS ORDERED: B-12100021 PO (10:20)
[2019-08-08] MEDS ORDERED: MEGA1CAP3 PO (10:20)
[2019-08-08] MEDS ORDERED: SODI650T PO (10:20)
[2019-08-08] MEDS ORDERED: D3 M1CAP2 PO (10:20)
--- NOTE | 2019-08-08 11:13 | REP ---
CT of the chest without IV contrast: Comparison is the portable study performed earlier today. By CT there are bilateral pleural effusions. Cardiac size is enlarged and there are sternotomy wires. This is similar to the portable study earlier today. There is no pericardial effusion. There are no lung masses or nodules. The unenhanced thoracic aorta is unremarkable. There is no pericardial effusion. There is no mediastinal or axillary adenopathy. The study is insensitive for hilar adenopathy in the absence of IV contrast. The visualized upper abdominal contents are unremarkable except for a tiny nonobstructive right renal calculus. Impression: Bilateral pleural effusions. No focal infiltrates. Cardiomegaly. No pericardial effusion. Sternotomy wires. Electronically Signed by Jhonatan Mcknight MD 08/08/2019 11:04 A
--- NOTE | 2019-08-08 11:18 | HPEPDOC ---
[facility] Medical History & Physical Date of Admission Aug 08, 2019 Date of Service: Aug 08, 2019 History and Physical CHIEF COMPLAINT: SOB HISTORY OF PRESENT ILLNESS: 68 yo male presents for 3 day history of worsening shortness of breath, orthopnea, PND and dyspnea on exertion. States he has noticed his legs swelling as well. Admits to high salt intake, with processed foods including canned soup. Denies chest pain, abdominal pain, N/V/D. PMHx of afib, possible PFO s/p repair from his description, valve replacement, HTN, HLD. Follows with Dr. Enriquez, last seen in June, scheduled for echocardiogram August 26. 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 PAST MEDICAL HISTORY: #afib #HTN #HLD #valve repair #ASD repair PAST SURGICAL HISTORY: #ASD repair 1985-[place]- Lillian Gama #mitral valve repair 1998 - [place] - Boris Weaver ALLERGIES: Please see below. REVIEW OF SYSTEMS: Negative except as per HPI HOME MEDICATIONS: Please see below. PHYSICAL EXAMINATION: VITAL SIGNS: See below General: NAD, lying comfortably in bed HEENT: NC/AT, EOMI, PERRL, nasal cannula in place Heart: systolic murmur radiating to axilla, irregularly irregular Lungs: b/l crackles Abd: obese, soft, NT, +BS Ext: 3+ b/l pitting edema LABORATORY DATA: See below. MICROBIOLOGY: Please see below. ASSESSMENT: 68 yo male with PMHx afib, HTN, HLD, valve repair, PFO repair presents for SOB, FLORES, PND, orthopnea, admitted for decompensated CHF. #acute on chronic decompensated CHF - previous echo shows diastolic dysfunction - echo pending - IV lasix - I/O's, daily weights - telemetry monitoring #afib - continue BB - warfarin - check INR #HTN - continue home Rx #HLD - continue statin therapy #DVT prophylaxis - therapeutic on coumadin as above Vital Signs Vital Signs Date Time Temp Pulse Resp B/P (MAP) Pulse Ox O2 Delivery O2 Flow Rate FiO2 08/08/19 10:00 103 28 112/72 (85) 93 Nasal Cannula 2.0 08/08/19 08:01 97.4 Laboratory Data Labs 24H Laboratory Tests 2 08/08/19 08:23: Immature Granulocyte % (Auto) 0.7, Neutrophils (%) (Auto) 80.8H, Lymphocytes (%) (Auto) 7.4L, Monocytes (%) (Auto) 10.9H, Eosinophils (%) (Auto) 0.1, Basophils (%) (Auto) 0.1, Neutrophils # (Auto) 11.5H, Lymphocytes # (Auto) 1.1L, Monocytes # (Auto) 1.6H, Eosinophils # (Auto) 0.0, Basophils # (Auto) 0.0, Nucleated Red Blood Cells % (auto) 0.0, Prothrombin Time 22.8H, Prothromb Time International Ratio 2.04, Activated Partial Thromboplast Time 33.2, Anion Gap 6L, Glomerular Filtration Rate 57.3, Calcium Level 8.8, Total Bilirubin 2.0H, Direct Bilirubin 0.5H, Aspartate Amino Transf (AST/SGOT) 29, Alanine Aminotransferase (ALT/SGPT) 50, Alkaline Phosphatase 52, Total Creatine Kinase 106, Creatine Kinase MB 3.0, Creatine Kinase MB Relative Index 2.83, Troponin I 0.03, OS-Xrt-K-Type Natriuretic Peptide 4666H, Total Protein 6.9, Albumin 3.8, Albumin/Globulin Ratio 1.23, Thyroid Stimulating Hormone (TSH) 1.990 08/08/19 08:26: Influenza Type A (RT-PCR) NEGATIVE, Influenza Type B (RT-PCR) NEGATIVE CBC/BMP Laboratory Tests 08/08/19 08:23 Microbiology Microbiology 08/08/19 Gram Stain, Received Pending 08/08/19 Sputum Culture, Received Pending Home Medications Scheduled Atenolol (Atenolol) 25 Mg Tab, 12.5 MG PO BID Cholecalciferol (Vitamin D3) (Vitamin D3) 125 Mcg Capsule, 125 MCG PO DAILY Cyanocobalamin (Vitamin B-12) (B-12) 1,000 Mcg Tablet, 1,000 MCG PO DAILY Krill/Om-3/Dha/Epa/Phospho/Ast (Megared [place]-3 Krill Oil Sfgl) 1 Each Capsule, 1 CAP PO DAILY Multivit-Mins/Iron/Folic/Lycop (Centrum Men's Tablet) 1 Each Tablet, 1 TAB PO DAILY Simvastatin (Zocor) 20 Mg Tab, 10 MG PO QHS Sodium Bicarbonate (Sodium Bicarbonate) 650 Mg Tablet, 650 MG PO BID Warfarin Sodium (Coumadin) 5 Mg Tab, 5 MG PO QHS Allergies Coded Allergies: No Known Allergies (Verified , 03/03/18) A-FIB/CHADSVASC A-FIB History Current/History of A-Fib/PAF?: Yes Current PO Anticoag Therapy: Yes NEDA LUO MD Aug 08, 2019 11:18
[2019-08-08 12:50] VITALS: BP 120/78
[2019-08-08 12:55] LABS: CK-MB VALUE MASS 3.3 NG/ML (<3.6); MB/CK RELATIVE INDEX 3.63 (< OR =4); TROPONIN I 0.05 NG/ML (< 0.10)
[2019-08-08] MEDS: MULTIVITAMINS/MINERALS THERAP 1 TAB PO SCH (12:57)
[2019-08-08] MEDS: SODIUM BICARBONATE 325 MG TAB PO SCH ×2 (12:58→19:56)
[2019-08-08] MEDS: ATENOLOL 12.5MG PER 1/2 TABLET PO SCH ×2 (12:58→19:55)
[2019-08-08 16:00] VITALS: BP 114/68
[2019-08-08] MEDS: FUROSEMIDE 100 MG/10 ML VIAL (J1940) IV SCH (17:33)
[2019-08-08] MEDS: WARFARIN SOD 5 MG TAB PO SCH (17:33)
[2019-08-08] MEDS: SIMVASTATIN 10 MG TAB PO SCH (19:56)
[2019-08-08 20:00] VITALS: BP 105/59
[2019-08-09] VITALS: BP 110/73
[2019-08-09 04:00] VITALS: BP 119/84
[2019-08-09 06:50] LABS: HEMATOCRIT 45.2 % (42.0-52.0); HEMOGLOBIN 14.6 g/dl (13.5-17.5); MEAN CORPUSCULAR HGB CONC 32.3 g/dl (32.0-36.5); PLATELET COUNT, AUTOMATED 139 10^3/uL (150-450); RED BLOOD COUNT 4.43 10^6/uL (4.30-6.10); WHITE BLOOD COUNT 13.2 10^3/uL (4.0-10.0)
[2019-08-09 06:59] LABS: INR 2.07; PROTHROMBIN TIME 23.1 SECONDS (11.8-14.0)
[2019-08-09 07:10] LABS: CALCIUM LEVEL 8.5 MG/DL (8.8-10.2); CREATININE FOR GFR 1.4 MG/DL (0.70-1.30); GLOMERULAR FILTRATION RATE 53.5 (>49); POTASSIUM SERUM 4.2 MEQ/L (3.5-5.1)
[2019-08-09 08:00] VITALS: BP 108/57
[2019-08-09] MEDS: MULTIVITAMINS/MINERALS THERAP 1 TAB PO SCH (08:18)
[2019-08-09] MEDS: SODIUM BICARBONATE 325 MG TAB PO SCH ×2 (08:18→23:02)
[2019-08-09] MEDS: ATENOLOL 12.5MG PER 1/2 TABLET PO SCH (08:18)
[2019-08-09] MEDS: FUROSEMIDE 100 MG/10 ML VIAL (J1940) IV SCH ×2 (08:19→16:32)
[2019-08-09 12:00] VITALS: BP 96/74
--- NOTE | 2019-08-09 13:37 | IPNPDOC ---
Text Note Date of Service The patient was seen on 08/09/19. NOTE Subjective: Patient seen and examined at bedside. No acute overnight events reported. No new medical complaints. States he is feeling better, that his orthopnea has improved, and breathing feels easier. Objective: VITAL SIGNS: See below General: NAD, lying comfortably in bed HEENT: NC/AT, EOMI, PERRL, nasal cannula in place Heart: systolic murmur radiating to axilla, irregularly irregular Lungs: b/l basilar crackles Abd: obese, soft, NT, +BS Ext: 2+ b/l pitting edema LABORATORY DATA: See below. MICROBIOLOGY: Please see below. ASSESSMENT: 68 yo male with PMHx afib, HTN, HLD, valve repair, ASD repair presents for SOB, FLORES, PND, orthopnea, admitted for decompensated CHF. #acute decompensated CHF - echo pending - IV lasix - I/O's, daily weights - telemetry monitoring - d/w cardiology - assistance appreciated - change toprol to carvedilol, add lisinopril; torsemide on discharge #acute hypoxic respiratory failure - as above - wean O2 - repeat CXR #afib - continue BB - warfarin - check INR #HTN - continue home Rx #HLD - continue statin therapy #DVT prophylaxis - therapeutic on coumadin as above VS,Fishbone, I+O VS, Fishbone, I+O Laboratory Tests 08/09/19 06:29 Vital Signs Date Time Temp Pulse Resp B/P (MAP) Pulse Ox O2 Delivery O2 Flow Rate FiO2 08/09/19 12:00 97.8 92 18 96/74 (81) 96 Nasal Cannula 2.0 I&O- Last 24 Hours up to 6 AM 08/09/19 06:00 Intake Total 870 ml Output Total 2700 ml Balance -1830 ml NEDA LUO MD Aug 09, 2019 13:37
[2019-08-09 14:00] VITALS: BP 110/78
--- NOTE | 2019-08-09 14:15 | REP ---
PA and lateral chest: Comparison is the portable chest dated 08/08/2019. Cardiomegaly and sternotomy wires are unchanged. Diffuse bilateral interstitial coarsening is unchanged. The right pleural effusion is unchanged. I suspect there is now a small left pleural effusion as an interval change. The elzbieta, mediastinum, skeletal structures are unchanged. Impression: Cardiomegaly, interstitial coarsening and right pleural effusion are unchanged. There is now a new small left pleural effusion. Electronically Signed by Jhonatan Mcknight MD 08/09/2019 02:06 P
[2019-08-09] MEDS: WARFARIN SOD 5 MG TAB PO SCH (16:31)
--- NOTE | 2019-08-09 20:44 | ECGEPIP ---
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
[2019-08-09] MEDS: SIMVASTATIN 10 MG TAB PO SCH (21:36)
[2019-08-09] MEDS: lisinopriL 5 MG TAB PO SCH (21:37)
[2019-08-09] MEDS: CARVedilol 6.25 MG TAB PO SCH (21:37)
[2019-08-09 22:00] VITALS: BP 112/69
[2019-08-10 06:00] VITALS: BP 102/70
[2019-08-10 06:18] LABS: HEMATOCRIT 39.5 % (42.0-52.0); HEMOGLOBIN 13.1 g/dl (13.5-17.5); MEAN CORPUSCULAR HEMOGLOBIN 33.6 pg (27.0-33.0); MEAN CORPUSCULAR HGB CONC 33.2 g/dl (32.0-36.5); MEAN CORPUSCULAR VOLUME 101.3 fl (80.0-96.0); PLATELET COUNT, AUTOMATED 107 10^3/uL (150-450); WHITE BLOOD COUNT 10.2 10^3/uL (4.0-10.0)
[2019-08-10 06:33] LABS: INR 2.25; PROTHROMBIN TIME 24.7 SECONDS (11.8-14.0)
[2019-08-10 06:49] LABS: BLOOD UREA NITROGEN 34 MG/DL (7-18); CALCIUM LEVEL 8.4 MG/DL (8.8-10.2); CARBON DIOXIDE LEVEL 33 MEQ/L (21-32); CHLORIDE LEVEL 105 MEQ/L (98-107); CREATININE FOR GFR 1.25 MG/DL (0.70-1.30); GLOMERULAR FILTRATION RATE > 60.0 (>49); GLUCOSE, FASTING 112 MG/DL (70-100); NT-PRO BNP 4065 PG/ML (<125); POTASSIUM SERUM 3.8 MEQ/L (3.5-5.1); SODIUM LEVEL 140 MEQ/L (136-145)
[2019-08-10] MEDS: lisinopriL 5 MG TAB PO SCH ×2 (09:00→20:40)
[2019-08-10] MEDS: CARVedilol 6.25 MG TAB PO SCH ×2 (09:00→20:41)
[2019-08-10] MEDS ORDERED: POTASSIUM CHLORIDE 10 MEQ SR TABLET PO ONE (09:00)
[2019-08-10] MEDS: MULTIVITAMINS/MINERALS THERAP 1 TAB PO SCH (09:38)
[2019-08-10] MEDS: FUROSEMIDE 100 MG/10 ML VIAL (J1940) IV SCH ×2 (09:39→17:59)
--- NOTE | 2019-08-10 09:40 | IPNPDOC ---
Text Note Date of Service The patient was seen on 08/10/19. NOTE Subjective: Patient seen and examined at bedside. No acute overnight events reported. No new medical complaints. Continues to feel better, states his orthopnea has almost resolved. Bedside pulse ox on room air was 95%. Walked to the bathroom and back to bed 5 times, repeat pulse ox was 94%. Objective: VITAL SIGNS: See below General: NAD, sitting comfortably at edge of bed HEENT: NC/AT, EOMI, PERRL, nasal cannula in place Heart: systolic murmur radiating to axilla, irregularly irregular Lungs: b/l basilar crackles Abd: obese, soft, NT, +BS Ext: 2+ b/l pitting edema LABORATORY DATA: See below. MICROBIOLOGY: Please see below. ASSESSMENT: 68 yo male with PMHx afib, HTN, HLD, valve repair, ASD repair presents for SOB, FLORES, PND, orthopnea, admitted for decompensated CHF. #acute decompensated CHF - echo pending - IV lasix - likely transition to PO tomorrow am - I/O's, daily weights - telemetry monitoring - d/w cardiology - assistance appreciated - changed toprol to carvedilol, added lisinopril; torsemide on discharge #acute hypoxic respiratory failure - as above - wean O2 - repeat CXR - previous possible small effusion? #afib - continue BB - warfarin - check INR #HTN - continue home Rx #HLD - continue statin therapy #DVT prophylaxis - therapeutic on coumadin as above Dispo: anticipate discharge in 24-48 hours VS,Fishbone, I+O VS, Fishbone, I+O Laboratory Tests 08/10/19 05:53 Vital Signs Date Time Temp Pulse Resp B/P (MAP) Pulse Ox O2 Delivery O2 Flow Rate FiO2 08/10/19 06:00 98.5 63 17 102/70 (81) 91 Nasal Cannula 2.0 I&O- Last 24 Hours up to 6 AM 08/10/19 06:00 Intake Total 1680 ml Output Total 1650 ml Balance 30 ml NEDA LUO MD Aug 10, 2019 09:40
[2019-08-10 09:47] LABS: MAGNESIUM LEVEL 2.3 MG/DL (1.8-2.4)
[2019-08-10 10:05] LABS: CK-MB VALUE MASS 1.5 NG/ML (<3.6); TROPONIN I 0.02 NG/ML (< 0.10)
[2019-08-10] MEDS: SODIUM BICARBONATE 325 MG TAB PO SCH ×2 (11:12→20:40)
--- NOTE | 2019-08-10 12:04 | REP ---
Bilateral lower extremity deep vein duplex ultrasound: The deep veins demonstrate normal compression, normal Doppler color flow and normal Doppler waveforms with respiration augmentation from the popliteal veins to the common femoral veins bilaterally. Impression: There is no deep vein thrombus in the right or left lower extremities. Electronically Signed by Jhonatan Mcknight MD 08/10/2019 11:56 A
[2019-08-10] MEDS: WARFARIN SOD 5 MG TAB PO SCH (17:59)
--- NOTE | 2019-08-10 19:25 | ECGEPIP ---
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 Slower rate than 08/08/19. Electronically Signed on 08-10-2019 19:25:11 EST by Chris Enriquez
[2019-08-10] MEDS: SIMVASTATIN 10 MG TAB PO SCH (20:40)
--- NOTE | 2019-08-10 21:02 | ECHO ---
DATE OF PROCEDURE: 08/10/2019 DATE OF : 1950 AGE: 68 GENDER: Male HEIGHT: 66 inches WEIGHT: 194 pounds BODY SURFACE AREA: 1.98 meters squared INPATIENT: [address] [place] [address], Room 4223. REFERRING PHYSICIAN: Dr. Burak Castillo INDICATION: Heart failure (unspecified). MEASUREMENTS: 2D Measurements: RV: 5.8 cm LV: 5.9 cm Septum: 1.4 cm Posterior wall: 1.4 cm Aortic root: 3.8 cm LA: 7.6 cm LVEF: 75% DOPPLER MEASUREMENTS: AV: 1.29 meters per second LVOT: 0.91 meters per second LVOT diameter: 2.0 cm MV-E: 140 Early mitral deceleration time: 211 milliseconds E prime medial: 11 E prime lateral: 13 Average E/E prime ratio: 11.5/PCWP: 16 mmHg PV: 0.6 meters per second Pulmonary artery acceleration time: 60 milliseconds RVSP: At least 60 mmHg IVC: 2.4 cm COMMENTS: Underlying atrial fibrillation with controlled ventricular response. No intraventricular conduction disturbance. M-mode and two-dimensional echocardiography was performed with pulsed, continuous wave, color flow and tissue Doppler. Mildly dilated left ventricle with moderate eccentric hypertrophy. There was flattening of the interventricular septum during systole in keeping with right ventricular pressure overload. Other left ventricular jolley were hyperkinetic. Grossly dilated left atrium with current estimated mean left atrial pressure at least mildly increased. Moderately dilated right heart chambers with right ventricular free wall hypokinesis and Doppler evidence of severe pulmonary hypertension. Mild to moderately dilated inferior vena cava with absent respiratory collapse in keeping with significantly elevated central venous pressure/right heart failure. Mild aortic valvular sclerosis with adequate cusp separation but premature cusp closure in keeping with reduced forward stroke volume. There was mild aortic insufficiency. Normal aortic dimensions. Mildly thickened mitral valvular apparatus with normal leaflet excursion but posterior systolic buckling of the posterior leaflet and at least moderate to moderately severe eccentrically directed mitral insufficiency to the roof of the left atrium. Normal appearing tricuspid valve with severe tricuspid insufficiency. No apparent intracardiac mass or pericardial effusion. MTDD
[2019-08-10 22:00] VITALS: BP 121/69
[2019-08-11 06:00] VITALS: BP 116/72
[2019-08-11] MEDS ORDERED: BENZONATATE 100 MG CAP PO SCH (06:00)
[2019-08-11 06:25] LABS: HEMATOCRIT 39.9 % (42.0-52.0); HEMOGLOBIN 13.3 g/dl (13.5-17.5); MEAN CORPUSCULAR HEMOGLOBIN 33.8 pg (27.0-33.0); MEAN CORPUSCULAR HGB CONC 33.3 g/dl (32.0-36.5); MEAN CORPUSCULAR VOLUME 101.3 fl (80.0-96.0); PLATELET COUNT, AUTOMATED 123 10^3/uL (150-450); RED BLOOD COUNT 3.94 10^6/uL (4.30-6.10); WHITE BLOOD COUNT 9.5 10^3/uL (4.0-10.0)
[2019-08-11 06:29] LABS: INR 2.22; PROTHROMBIN TIME 24.4 SECONDS (11.8-14.0)
[2019-08-11 06:41] LABS: BLOOD UREA NITROGEN 35 MG/DL (7-18); CALCIUM LEVEL 8.9 MG/DL (8.8-10.2); CARBON DIOXIDE LEVEL 30 MEQ/L (21-32); CHLORIDE LEVEL 104 MEQ/L (98-107); CREATININE FOR GFR 1.11 MG/DL (0.70-1.30); GLOMERULAR FILTRATION RATE > 60.0 (>49); GLUCOSE, FASTING 105 MG/DL (70-100); POTASSIUM SERUM 3.7 MEQ/L (3.5-5.1); SODIUM LEVEL 137 MEQ/L (136-145)
[2019-08-11] MEDS: SODIUM BICARBONATE 325 MG TAB PO SCH (08:42)
[2019-08-11] MEDS: MULTIVITAMINS/MINERALS THERAP 1 TAB PO SCH (08:42)
[2019-08-11 08:43] VITALS: BP 115/73
[2019-08-11] MEDS: lisinopriL 5 MG TAB PO SCH (08:43)
[2019-08-11] MEDS: CARVedilol 6.25 MG TAB PO SCH (08:43)
[2019-08-11] MEDS ORDERED: guaiFENesin ER 600 MG TAB PO SCH (09:00)
[2019-08-11] MEDS ORDERED: TORSEMIDE 20 MG TAB PO SCH (09:00)
--- NOTE | 2019-08-11 09:33 | REP ---
PA and lateral chest: Comparison is 08/09/2019. The interstitial coarsening has decreased. The right pleural effusion has decreased. Sternotomy wires and cardiomegaly are unchanged. Small left pleural effusion is unchanged. Impression: The interstitial coarsening and right pleural effusion have decreased. Electronically Signed by Jhonatan Mcknight MD 08/11/2019 09:25 A
[2019-08-11] MEDS ORDERED: LISI-542 PO (11:48)
[2019-08-11] MEDS ORDERED: MUCI600T31 PO (11:48)
[2019-08-11] MEDS ORDERED: CARV6.25 PO (11:48)
[2019-08-11] MEDS ORDERED: TORS20TA2 PO (11:48)
[2019-08-11] MEDS ORDERED: BENZ-18 PO (11:48)
--- NOTE | 2019-08-11 15:40 | DS.PDOC ---
Discharge Summary General Date of Admission Aug 08, 2019 at 11:06 Date of Discharge 08/11/2019 Discharge Summary PROCEDURES PERFORMED DURING STAY: None. ADMITTING DIAGNOSES: 1. Acute on chronic decompensated congestive heart failure. 2. Atrial fibrillation. 3. Hypertension. DISCHARGE DIAGNOSES: 1. Acute on chronic decompensated congestive heart failure. 2. Atrial fibrillation. 3. Hypertension. COMPLICATIONS/CHIEF COMPLAINT: CHF. HISTORY OF PRESENT ILLNESS: 68-year-old male presented to the emergency department with a three-day history of worsening shortness of breath, orthopnea, paroxysmal nocturnal dyspnea, and dyspnea on exertion. He had also noticed leg swelling. He did admit to a recent increase in his salt intake from eating chicken noodle soup while he was sick with bronchitis. He denied chest pain, abdominal pain, nausea, vomiting, and diarrhea. Past medical history is significant for multiple cardiac issues including atrial fibrillation, congenital heart defect, possible PFO status post repair, mitral valve replacement, hypertension, and hyperlipidemia. He follows with Dr. Enriquez outpatient, was last seen in June. HOSPITAL COURSE: Patient was admitted to the medical floor with IV Lasix, strict I's and O's, daily weights, and telemetry monitoring. He was brought to diuresis well, and had a negative balance of 2 L and losing almost 6 kg of weight. His orthopnea resolved and he was transitioned from IV Lasix to by mouth torsemide. On the day of discharge his symptoms had resolved, though he did have some slight residual leg swelling. He met all discharge criteria and was able to be discharged home. DISCHARGE MEDICATIONS: Please see below. ALLERGIES: Please see below. PHYSICAL EXAMINATION ON DISCHARGE: VITAL SIGNS: Please see below. GENERAL: Elderly male in no acute distress, sitting comfortably at the edge of the bed. HEENT: Normal cephalic, atraumatic. Mucous membranes are moist. NECK: Supple, no JVD CARDIOVASCULAR EXAMINATION: Irregular rhythm, rate not tachycardic. Holosystolic murmur grade to the axilla with a prominent S1. RESPIRATORY EXAMINATION: Clear to auscultation bilaterally; no wheezes, rhonchi, or rales ABDOMINAL EXAMINATION: Obese, soft, nontender, nondistended. Normoactive bowel sounds EXTREMITIES: 2+ bilateral lower extremity edema SKIN: Varicosities on the bilateral lower extremities NEUROLOGICAL EXAMINATION: No focal neurological deficits noted PSYCHIATRIC EXAMINATION: Mood and affect are appropriate LABORATORY DATA: Please see below. IMAGING: Chest x-ray done 08/08/2019: Diffuse interstitial coarsening. Right costophrenic angle is effaced, suggestive of a red small right pleural effusion. Cardiomegaly and sternotomy wires unchanged. Chest CT done 08/08/2019: Bilateral pleural effusions, no pericardial effusion. No mediastinal or axillary adenopathy. Tiny nonobstructive right renal calculus. Chest x-ray done 08/09/2019: Diffuse bilateral interstitial coarsening, unchanged. Right pleural effusion unchanged, suspected small left pleural effusion. Bilateral lower extremity vascular ultrasound done 08/10/2019: No DVT. Chest x-ray done 08/11/2019: Interstitial coarsening and right pleural effusion is decreased. Echocardiogram done 08/10/2019: LVEF 75%, underlying atrial fibrillation with controlled ventricular response, mildly dilated left ventricle with moderate eccentric hypertrophy. Moderately dilated right heart chambers with a right ventricular free wall hypokinesis and Doppler evidence of severe pulmonary hypertension. Mild to moderate dilated inferior vena cava with absent respiratory collapse in keeping with significantly elevated central venous pressure/right heart failure. Mild aortic valvular sclerosis with adequate cusp separation but premature cussed closure in keeping with reduced forward stroke volume. Mild aortic insufficiency. Moderately severe mitral insufficiency. PROGNOSIS: Fair ACTIVITY: As tolerated. DIET: 2 gram sodium DISCHARGE PLAN: Follow-up with Dr. Enriquez in 1 week DISPOSITION: Home, Self-Care. DISCHARGE INSTRUCTIONS: 1. Follow-up with Dr. Enriquez in 1 week ITEMS TO FOLLOWUP ON ON OUTPATIENT: 1. Heart failure, a diuretic DISCHARGE CONDITION: Stable. TIME SPENT ON DISCHARGE: Greater than 30 minutes. Vital Signs/I&Os Vital Signs Date Time Temp Pulse Resp B/P (MAP) Pulse Ox O2 Delivery O2 Flow Rate FiO2 08/11/19 08:43 100 115/73 08/11/19 06:00 97.7 18 95 Room Air 08/10/19 09:00 1.0 I&O- Last 24 Hours up to 6 AM 08/11/19 06:00 Intake Total 2268 ml Output Total 2720 ml Balance -452 ml Laboratory Data Labs 24H Laboratory Tests 2 08/11/19 05:58: Nucleated Red Blood Cells % (auto) 0.0, Prothrombin Time 24.4H, Prothromb Time International Ratio 2.22, Anion Gap 3L, Glomerular Filtration Rate > 60.0, Calcium Level 8.9 CBC/BMP Laboratory Tests 08/11/19 05:58 Microbiology Microbiology 08/08/19 Gram Stain - Final, Complete 08/08/19 Sputum Culture - Final, Complete Yeast Like Organism 08/08/19 Respiratory Virus Panel (PCR) (GERARD) - Final, Complete Discharge Medications Scheduled Benzonatate (Benzonatate) 100 Mg Capsule, 200 MG PO Q8H Carvedilol (Carvedilol) 6.25 Mg Tablet, 6.25 MG PO BID Cholecalciferol (Vitamin D3) (Vitamin D3) 125 Mcg Capsule, 125 MCG PO DAILY, (Reported) Cyanocobalamin (Vitamin B-12) (B-12) 1,000 Mcg Tablet, 1,000 MCG PO DAILY, (Reported) Guaifenesin (Mucinex) 600 Mg Tab.er.12h, 1,200 MG PO BID Krill/Om-3/Dha/Epa/Phospho/Ast (Megared [place]-3 Krill Oil Sfgl) 1 Each Capsule, 1 CAP PO DAILY, (Reported) Lisinopril (Lisinopril) 5 Mg Tablet, 5 MG PO BID Multivit-Mins/Iron/Folic/Lycop (Centrum Men's Tablet) 1 Each Tablet, 1 TAB PO DAILY, (Reported) Simvastatin (Zocor) 20 Mg Tab, 10 MG PO QHS, (Reported) Sodium Bicarbonate (Sodium Bicarbonate) 650 Mg Tablet, 650 MG PO BID, (Reported) Torsemide (Torsemide) 20 Mg Tablet, 20 MG PO BID@09,17 Warfarin Sodium (Coumadin) 5 Mg Tab, 5 MG PO QHS, (Reported) Allergies Coded Allergies: No Known Allergies (Verified , 03/03/18) GME ATTESTATION GME ATTESTATION My faculty preceptor for this patient encounter was physically present during the encounter and was fully available. All aspects of the patient interview, examination, medical decision making process, and medical care plan development were reviewed and approved by the faculty preceptor. The faculty preceptor is aware and concurs with the plan as stated in the body of this note and will attest to such by his/her cosignature. HUMAIRA FOLEY D.O. Aug 11, 2019 15:40
== END 2019-08-11 14:03 | disposition home or self-care (01) | DRG 291 ==
LOC: M ED 08:01 → M ED INP 11:06 → ENRESERVTM 08-09 12:47 → ENRESERVDT 08-09 12:47 → ENRESERVTM 08-09 13:39 → M MSPAV 08-09 14:08
PROVIDERS: ADMIT Internal Medicine; ATTEND Internal Medicine
DX: I11.0 Hypertensive heart disease with heart failure (principal); J96.01 Acute respiratory failure with hypoxia; I48.20 Chronic atrial fibrillation, unspecified; I50.33 Acute on chronic diastolic (congestive) heart failure; Z95.2 Presence of prosthetic heart valve; E78.5 Hyperlipidemia, unspecified; Z79.899 Other long term (current) drug therapy

== ENCOUNTER → 2019-08-20 | Outpatient (CLI) | payer MEDICARE ==
[~2019-08-20] MED LIST changes: +B-12100021 PO; +BENZ-18 PO; +CARV6.25 PO; +CENT1TAB2 PO; +D3 M1CAP2 PO; +LISI-542 PO; +MEGA1CAP3 PO; +MUCI600T31 PO; +SODI650T PO; +TORS20TA2 PO
[2019-08-20 12:34] LABS: HEMATOCRIT 44.2 % (42.0-52.0); HEMOGLOBIN 14.3 g/dl (13.5-17.5); MEAN CORPUSCULAR HEMOGLOBIN 32.9 pg (27.0-33.0); MEAN CORPUSCULAR HGB CONC 32.4 g/dl (32.0-36.5); MEAN CORPUSCULAR VOLUME 101.6 fl (80.0-96.0); PLATELET COUNT, AUTOMATED 174 10^3/uL (150-450); RED BLOOD COUNT 4.35 10^6/uL (4.30-6.10); WHITE BLOOD COUNT 12.1 10^3/uL (4.0-10.0)
[2019-08-20 13:04] LABS: CALCIUM LEVEL 9.1 MG/DL (8.8-10.2); CREATININE FOR GFR 1.3 MG/DL (0.70-1.30); GLOMERULAR FILTRATION RATE 58.1 (>42); MAGNESIUM LEVEL 2.6 MG/DL (1.8-2.4); POTASSIUM SERUM 4.5 MEQ/L (3.5-5.1)
== END ==
LOC: M LAB 11:37
PROVIDERS: ATTEND Physician Assistant
DX: I50.32 Chronic diastolic (congestive) heart failure (principal); I48.21 Permanent atrial fibrillation

== ENCOUNTER → 2019-09-01 | Outpatient (CLI) | payer MEDICARE ==
[2019-09-01 14:03] LABS: INR 3.12
== END ==
LOC: M LAB 12:38
PROVIDERS: ATTEND Physician Assistant
DX: I48.91 Unspecified atrial fibrillation (principal)

== ENCOUNTER → 2019-09-15 | Outpatient (CLI) | payer MEDICARE ==
[2019-09-15 10:47] LABS: INR 2.16; PROTHROMBIN TIME 23.9 SECONDS (11.8-14.0)
== END ==
LOC: M LAB 09:39
PROVIDERS: ATTEND Physician Assistant
DX: I48.91 Unspecified atrial fibrillation (principal)

== ENCOUNTER → 2019-10-23 | Outpatient (CLI) | payer MEDICARE ==
[2019-10-23 13:51] LABS: INR 2.95; PROTHROMBIN TIME 30.7 SECONDS (11.8-14.0)
[2019-10-23 14:23] LABS: CREATININE FOR GFR 1.58 MG/DL (0.70-1.30); GLOMERULAR FILTRATION RATE 46.4 (>42); MAGNESIUM LEVEL 2.5 MG/DL (1.8-2.4)
== END ==
LOC: M LAB 11:59
PROVIDERS: ATTEND Physician Assistant
DX: I48.91 Unspecified atrial fibrillation (principal); I50.32 Chronic diastolic (congestive) heart failure

== ENCOUNTER → 2019-11-05 | Outpatient (CLI) | payer MEDICARE ==
[2019-11-05 10:59] LABS: INR 3.35; PROTHROMBIN TIME 33.9 SECONDS (11.8-14.0)
== END ==
LOC: M LAB 09:08
PROVIDERS: ATTEND Physician Assistant
DX: I48.91 Unspecified atrial fibrillation (principal)

== ENCOUNTER → 2019-11-12 | Outpatient (CLI) | payer MEDICARE ==
[2019-11-12 10:43] LABS: CREATININE FOR GFR 1.58 MG/DL (0.70-1.30); GLOMERULAR FILTRATION RATE 46.4 (>42)
== END ==
LOC: M LAB 09:34
PROVIDERS: ATTEND Internal Medicine Cardiovascular Disease
DX: N18.9 Chronic kidney disease, unspecified (principal)

== ENCOUNTER → 2019-12-10 | Outpatient (CLI) | payer MEDICARE ==
[2019-12-10 10:42] LABS: HEMATOCRIT 39.7 % (42.0-52.0); HEMOGLOBIN 12.3 g/dl (13.5-17.5); MEAN CORPUSCULAR HEMOGLOBIN 33.4 pg (27.0-33.0); MEAN CORPUSCULAR VOLUME 107.9 fl (80.0-96.0); PLATELET COUNT, AUTOMATED 257 10^3/uL (150-450); RED BLOOD COUNT 3.68 10^6/uL (4.30-6.10); WHITE BLOOD COUNT 6.5 10^3/uL (4.0-10.0)
[2019-12-10 10:53] LABS: INR 3.63; PROTHROMBIN TIME 36.2 SECONDS (11.8-14.0)
[2019-12-10 11:16] LABS: BLOOD UREA NITROGEN 13 MG/DL (7-18); CALCIUM LEVEL 9.5 MG/DL (8.8-10.2); CARBON DIOXIDE LEVEL 31 MEQ/L (21-32); CHLORIDE LEVEL 105 MEQ/L (98-107); CREATININE FOR GFR 0.87 MG/DL (0.70-1.30); GLOMERULAR FILTRATION RATE > 60.0 (>42); GLUCOSE, FASTING 104 MG/DL (70-100); MAGNESIUM LEVEL 2.3 MG/DL (1.8-2.4); NT-PRO BNP 4315 PG/ML (<125); POTASSIUM SERUM 4.4 MEQ/L (3.5-5.1); SODIUM LEVEL 141 MEQ/L (136-145)
== END ==
LOC: M LAB 09:47
PROVIDERS: ATTEND Physician Assistant
DX: I50.32 Chronic diastolic (congestive) heart failure (principal); I48.91 Unspecified atrial fibrillation

== ENCOUNTER → 2019-12-24 | Outpatient (CLI) | payer MEDICARE ==
[2019-12-24 11:21] LABS: INR 3.63; PROTHROMBIN TIME 36.2 SECONDS (11.8-14.0)
[2019-12-24 11:41] LABS: BLOOD UREA NITROGEN 16 MG/DL (7-18); CALCIUM LEVEL 8.6 MG/DL (8.8-10.2); CARBON DIOXIDE LEVEL 30 MEQ/L (21-32); CHLORIDE LEVEL 109 MEQ/L (98-107); CREATININE FOR GFR 0.89 MG/DL (0.70-1.30); GLOMERULAR FILTRATION RATE > 60.0 (>42); GLUCOSE, FASTING 96 MG/DL (70-100); MAGNESIUM LEVEL 2.1 MG/DL (1.8-2.4); NT-PRO BNP 4107 PG/ML (<125); POTASSIUM SERUM 3.4 MEQ/L (3.5-5.1); SODIUM LEVEL 143 MEQ/L (136-145)
== END ==
LOC: M LAB 09:52
PROVIDERS: ATTEND Physician Assistant
DX: I48.91 Unspecified atrial fibrillation (principal); I50.32 Chronic diastolic (congestive) heart failure

== ENCOUNTER → 2020-01-07 | Outpatient (CLI) | payer MEDICARE ==
[2020-01-07 10:23] LABS: INR 4.4; PROTHROMBIN TIME 42.2 SECONDS (11.8-14.0)
== END ==
LOC: M LAB 09:32
PROVIDERS: ATTEND Physician Assistant
DX: I48.91 Unspecified atrial fibrillation (principal)

== ENCOUNTER → 2020-01-15 | Outpatient (CLI) | payer MEDICARE ==
[2020-02-19 04:59] LABS: INR 2.25; PROTHROMBIN TIME 25.4 SECONDS (11.8-14.0)
[2020-03-03 08:18] LABS: BLOOD UREA NITROGEN 14 MG/DL (7-18); CALCIUM LEVEL 9.2 MG/DL (8.8-10.2); CARBON DIOXIDE LEVEL 31 MEQ/L (21-32); CHLORIDE LEVEL 108 MEQ/L (98-107); CREATININE FOR GFR 0.96 MG/DL (0.70-1.30); GLOMERULAR FILTRATION RATE > 60.0 (>42); GLUCOSE, FASTING 113 MG/DL (70-100); MAGNESIUM LEVEL 2.1 MG/DL (1.8-2.4); NT-PRO BNP 3472 PG/ML (<125); POTASSIUM SERUM 4.4 MEQ/L (3.5-5.1); SODIUM LEVEL 141 MEQ/L (136-145)
== END ==
LOC: M LAB 10:36
PROVIDERS: ATTEND Physician Assistant
DX: I48.21 Permanent atrial fibrillation (principal); Z79.01 Long term (current) use of anticoagulants; I50.32 Chronic diastolic (congestive) heart failure

== ENCOUNTER → 2020-02-01 | Outpatient (CLI) | payer MEDICARE ==
[2020-04-04 16:25] LABS: INR 3.62; PROTHROMBIN TIME 36.9 SECONDS (12.5-14.3)
== END ==
LOC: M LAB 09:55
PROVIDERS: ATTEND Physician Assistant
DX: I48.21 Permanent atrial fibrillation (principal); Z79.01 Long term (current) use of anticoagulants

== ENCOUNTER → 2020-02-11 | Outpatient (CLI) | payer MEDICARE ==
[2020-02-11 14:53] LABS: INR 3.2; PROTHROMBIN TIME 33.5 SECONDS (11.8-14.0)
== END ==
LOC: M LAB 13:31
PROVIDERS: ATTEND Physician Assistant
DX: I48.21 Permanent atrial fibrillation (principal)

== ENCOUNTER → 2020-03-17 | Outpatient (CLI) | payer MEDICARE ==
[2020-03-17 10:17] LABS: INR 3.38
== END ==
LOC: M LAB 09:08
PROVIDERS: ATTEND Physician Assistant
DX: I48.21 Permanent atrial fibrillation (principal); Z79.01 Long term (current) use of anticoagulants

== ENCOUNTER → 2020-03-18 | Outpatient (CLI) | payer MEDICARE ==
[2020-03-18 10:15] LABS: BLOOD UREA NITROGEN 21 MG/DL (7-18); CALCIUM LEVEL 8.9 MG/DL (8.8-10.2); CARBON DIOXIDE LEVEL 30 MEQ/L (21-32); CHLORIDE LEVEL 110 MEQ/L (98-107); CREATININE FOR GFR 1.09 MG/DL (0.70-1.30); GLOMERULAR FILTRATION RATE > 60.0 (>42); GLUCOSE, FASTING 95 MG/DL (70-100); MAGNESIUM LEVEL 2.1 MG/DL (1.8-2.4); NT-PRO BNP 2703 PG/ML (<125); POTASSIUM SERUM 4.6 MEQ/L (3.5-5.1); SODIUM LEVEL 143 MEQ/L (136-145)
== END ==
LOC: M LAB 08:59
PROVIDERS: ATTEND Physician Assistant
DX: I50.32 Chronic diastolic (congestive) heart failure (principal)

== ENCOUNTER → 2020-03-31 | Outpatient (CLI) | payer MEDICARE ==
[2020-03-31 11:10] LABS: INR 3.36; PROTHROMBIN TIME 34.8 SECONDS (12.5-14.3)
== END ==
LOC: M LAB 10:10
PROVIDERS: ATTEND Physician Assistant
DX: I48.21 Permanent atrial fibrillation (principal)

== ENCOUNTER → 2020-04-14 | Outpatient (CLI) | payer MEDICARE ==
[2020-04-14 08:37] LABS: INR 2.03; PROTHROMBIN TIME 23.4 SECONDS (12.5-14.3)
[2020-04-14 08:44] LABS: BLOOD UREA NITROGEN 18 MG/DL (7-18); CALCIUM LEVEL 8.8 MG/DL (8.8-10.2); CARBON DIOXIDE LEVEL 27 MEQ/L (21-32); CHLORIDE LEVEL 110 MEQ/L (98-107); CREATININE FOR GFR 1.05 MG/DL (0.70-1.30); GLOMERULAR FILTRATION RATE > 60.0 (>42); GLUCOSE, FASTING 81 MG/DL (70-100); MAGNESIUM LEVEL 2.1 MG/DL (1.8-2.4); NT-PRO BNP 2845 PG/ML (<125); POTASSIUM SERUM 4.3 MEQ/L (3.5-5.1); SODIUM LEVEL 142 MEQ/L (136-145)
== END ==
LOC: M LAB 07:39
PROVIDERS: ATTEND Physician Assistant
DX: I50.32 Chronic diastolic (congestive) heart failure (principal); I48.21 Permanent atrial fibrillation; Z79.01 Long term (current) use of anticoagulants

== ENCOUNTER → 2020-04-28 | Outpatient (CLI) | payer MEDICARE ==
[2020-04-28 08:42] LABS: INR 2.78
== END ==
LOC: M LAB 07:55
PROVIDERS: ATTEND Physician Assistant
DX: Z51.81 Encounter for therapeutic drug level monitoring (principal); Z79.01 Long term (current) use of anticoagulants; I48.21 Permanent atrial fibrillation

== ENCOUNTER → 2020-05-19 | Outpatient (CLI) | payer MEDICARE ==
[2020-05-19 10:48] LABS: INR 2.85; PROTHROMBIN TIME 30.6 SECONDS (12.5-14.3)
== END ==
LOC: M LAB 08:51
PROVIDERS: ATTEND Physician Assistant
DX: I48.21 Permanent atrial fibrillation (principal); Z79.01 Long term (current) use of anticoagulants

== ENCOUNTER 2020-06-05 09:29 | Inpatient (IN) | payer MEDICARE ==
[~2020-06-05] VITALS: Ht 167.6 cm; Wt 77.3 kg
[2020-06-05] MEDS ORDERED: ATOR80TA59 PO (09:47)
[2020-06-05] MEDS ORDERED: VITA100T59 PO (09:47)
[2020-06-05] MEDS ORDERED: CARV3.12 PO (09:47)
[2020-06-05] MEDS ORDERED: SPIR-10 PO (09:47)
--- NOTE | 2020-06-05 10:05 | REP ---
INDICATION: fall on coumadin COMPARISON: None. TECHNIQUE: Axial noncontrast images from the skull base to the thoracic inlet with coronal reformations. This CT examination was performed using the following dose reduction techniques: Automated exposure control, adjustment of mA and/or kv according to the patient's size, and use of iterative reconstruction technique. FINDINGS: Atrophy with periventricular leukomalacia and microvascular ischemic changes are appreciated. The ventricles and sulci are symmetric. Sykes-white differentiation is maintained. There is no evidence for acute intracranial hemorrhage, mass/mass effect, pathology or infarction. No extra-axial fluid collection. Calvarium is intact. Paranasal sinuses and mastoid air cells are clear. IMPRESSION: Age related atrophy and microvascular ischemic changes. No acute intracranial hemorrhage, infarction, or mass/mass effect. <Electronically signed by Reji Peraza > 06/05/20 [id number]
[2020-06-05] MEDS ORDERED: BOOSTRIX/ADACEL VACCINE (DIPHTH/PERTUSS/ACELL/TETANUS) 0.5ML SYR IM ONE (10:15)
--- NOTE | 2020-06-05 10:28 | REP ---
INDICATION: fall, whole right leg hurts - ensure all included hip to ft COMPARISON: None. TECHNIQUE: AP, lateral, views of the right tibia/fibula FINDINGS: The osseous structures and joint spaces are intact and normal. There is no evidence for acute fracture or dislocation. Surrounding soft tissues are unremarkable. No subcutaneous emphysema or radiodense foreign body. IMPRESSION: . No acute fracture or dislocation. <Electronically signed by Reji Peraza > 06/05/20 0992
--- NOTE | 2020-06-05 10:28 | REP ---
INDICATION: fall, whole right leg hurts - ensure all included hip to ft COMPARISON: None. TECHNIQUE: AP, frog lateral views of the right femur. FINDINGS: The osseous structures and joint spaces are intact and there is no evidence for acute fracture or dislocation. Surrounding soft tissues are unremarkable. No subcutaneous emphysema or radiodense foreign body. IMPRESSION: . No acute fracture or dislocation. <Electronically signed by Reji Peraza > 06/05/20 0877
--- NOTE | 2020-06-05 10:29 | REP ---
INDICATION: fall, whole right leg hurts - ensure all included hip to ft COMPARISON: 08/11/2019 TECHNIQUE: Portable AP view of the chest FINDINGS: Marked cardiomegaly appears increased from prior examination. Evidence for prior sternotomy and pacemaker noted. The lung meyers are clear without acute consolidation, effusion, or pneumothorax. Skeletal structures are intact. IMPRESSION: Marked cardiomegaly increased from prior examination. No focal consolidation or effusion. <Electronically signed by Reji Peraza > 06/05/20 [id number]
--- NOTE | 2020-06-05 10:29 | REP ---
INDICATION: fall, whole right leg hurts - ensure all included hip to ft COMPARISON: None. TECHNIQUE: Single AP view of the pelvis. FINDINGS: Age-related changes. No obvious acute fracture or dislocation. IMPRESSION: No obvious acute fracture or dislocation identified. <Electronically signed by Reji Peraza > 06/05/20 1023
--- NOTE | 2020-06-05 10:29 | REP ---
INDICATION: fall, whole right leg hurts - ensure all included hip to ft COMPARISON: None. TECHNIQUE: AP, lateral, bilateral oblique views right foot. FINDINGS: Swelling and peripheral vascular disease noted. No obvious acute fracture or dislocation. No subcutaneous emphysema or foreign body. IMPRESSION: Swelling and peripheral vascular disease. No acute fracture or dislocation. <Electronically signed by Reji Peraza > 06/05/20 [id number]
[2020-06-05] MEDS ORDERED: TORS20TA2 PO (10:31)
[2020-06-05] MEDS ORDERED: WARF-23 PO ×2 (10:31)
[2020-06-05] MEDS ORDERED: VITA-158 PO (10:31)
[2020-06-05 10:42] LABS: BASO % 0.2 % (0.0-1.0); EOS % 0.4 % (0.0-3.0); HEMOGLOBIN 10.6 g/dl (13.5-17.5); LYMPH # 0.8 10^3/uL (1.5-5.0); LYMPH % 7.7 % (24.0-44.0); MEAN CORPUSCULAR HEMOGLOBIN 32.8 pg (27.0-33.0); MEAN CORPUSCULAR HGB CONC 32.1 g/dl (32.0-36.5); MEAN CORPUSCULAR VOLUME 102.2 fl (80.0-96.0); MONO # 1.4 10^3/uL (0.0-0.8); MONO % 13.3 % (0.0-5.0); NEUTROPHILS # 8.4 10^3/uL (1.5-8.5); NEUTROPHILS % 77.4 % (36.0-66.0); PLATELET COUNT, AUTOMATED 162 10^3/uL (150-450); RED BLOOD COUNT 3.23 10^6/uL (4.30-6.10); WHITE BLOOD COUNT 10.8 10^3/uL (4.0-10.0)
[2020-06-05 10:53] LABS: INR 3.29; PROTHROMBIN TIME 34.2 SECONDS (12.5-14.3)
[2020-06-05 10:54] LABS: PARTIAL THROMBOPLASTIN TIME 53.8 SECONDS (24.2-38.5)
[2020-06-05 11:16] LABS: ALT/SGPT 43 U/L (12-78); BILIRUBIN,DIRECT 0.6 MG/DL (0.0-0.2); BILIRUBIN,TOTAL 2.8 MG/DL (0.2-1.0); BLOOD UREA NITROGEN 15 MG/DL (7-18); CALCIUM LEVEL 8.8 MG/DL (8.8-10.2); CARBON DIOXIDE LEVEL 28 MEQ/L (21-32); CHLORIDE LEVEL 107 MEQ/L (98-107); CK-MB VALUE MASS 1.4 NG/ML (<3.6); CPK CREATINE PHOSPHOKINASE 117 U/L (39-308); CREATININE FOR GFR 0.94 MG/DL (0.70-1.30); GLOMERULAR FILTRATION RATE > 60.0 (>42); GLUCOSE, FASTING 118 MG/DL (70-100); LIPASE 109 U/L (73-393); POTASSIUM SERUM 4.4 MEQ/L (3.5-5.1); SODIUM LEVEL 142 MEQ/L (136-145); TOTAL PROTEIN 6.6 GM/DL (6.4-8.2); TROPONIN I < 0.02 NG/ML (< 0.10)
--- NOTE | 2020-06-05 11:29 | REP ---
INDICATION: swelling COMPARISON: None TECHNIQUE: Real time oh scale and color ultrasound examination using high-frequency transducer. FINDINGS: Ultrasound examination demonstrates a complex avascular subcutaneous collection at the site of maximal swelling which measures approximately 6.1 x 3.8 x 1.5 cm and suggests hematoma given the history of recent trauma. IMPRESSION: Findings most likely represent hematoma. Clinical correlation and follow-up may be warranted. <Electronically signed by Reji Peraza > 06/05/20 [id number]
[2020-06-05 11:37] LABS: RSV AMPLIFICATION NEGATIVE (NEGATIVE)
[2020-06-05] MEDS ORDERED: PERCOCET 5MG/325MG TAB PO ONE (11:45)
--- NOTE | 2020-06-05 12:12 | HPEPDOC ---
[facility] Medical History & Physical Date of Admission Jun 05, 2020 Date of Service: Jun 05, 2020 Attending Physician: Martine Eubanks MD History and Physical CHIEF COMPLAINT: Right lower ext pain HISTORY OF PRESENT ILLNESS: Patient is a 69-year-old male with past medical history of multiple valve re pairs and most recent mitral valve replacement, coronary artery disease, H or fibrillation on Coumadin who presented to [facility] with a complaint of increased right lower extremity pain. states 05/30/2020 he was carrying stuff up a flight of stairs when he lost his balance the top and fell backwards falling down all 8 stairs. He did not note any pain after the fall but got up and proceeded to go up the stairs again. Over the next several days the patient noted right-sided hip and toe bruising so he called his primary care doctor who saw him that same day. On that visit, his primary care doctor wrapped his right lower leg as there were some increased swelling. He was told him to elevate. Several days after that , he noticed he was beginning to limp on the right lower extremity had not taken the wrap off of the right lower leg to look at the skin itself. By 06/04/2020 the patient states he was not applying any pressure with walking on that leg but staying chair and bed bound. Even without applying pressure or putting weight on the right lower extremity, he was experiencing severe, 10/10 right lower leg pain shooting up the right extremity to the hip. Today he called 911 to be brought to the hospital. The patient denies chest pain, shortness of breath, cough, fevers, chills, abdominal pain, nausea, vomiting, diarrhea. The patient is on coumadin for atrial fibrillation and is compliant with all his home medications. The emergency room vital signs showed to be stable. INR was 3.29, H&H 10.6/33 (Hgb baseline is 13-14). T bili elevated at 2.8, D bili 0.6, AST 38. All other labs were unremarkable. The patient had multiple x-rays of the right lower extremity and each joint not showing any fractures, only some soft tissue swelling. After the bandage of the right lower extremity was taken off it was noted that there were several large bullae/blood blisters some of which show to have sheared off of the top layer of skin and actively bleeding. The patient was tender on exam from his right foot up to his right hip. There were areas of bruising from the foot up to the hip at different stages of healing. Popliteal, dorsalis pedis and posterior tibialis pulses were present in the RLE. Capillary refill in the right lower extremity was less than 2 seconds on exam. Patient was unable to ambulate without much assistance, he also complained of severe pain w hen trying to put pressure on RLE. He normally lives alone, walks 5 miles daily without walker or cane. He has 8 stairs in his home. Patient was admitted for Extensive bruising with hematomas, soft tissue swelling of the RLE s/p fall. REVIEW OF SYSTEMS: Neg except for what is mentioned PAST MEDICAL HISTORY: afib on coumadin HTN HLD valve repair ASD repair PAST SURGICAL HISTORY: ASD repair 1985-LINDA Gama mitral valve repair 1997 - [place] Boris Weaver Valve repair (type unknown to patient) 11/2019 MV replacement 11/2019 Stent placement 11/2019 FAMILY HISTORY: Father: colon cancer. at 66 y/o Mother: Alzheimer's. at 79 y/o SOCIAL HISTORY: No smoking, alcohol or drug use history. Lives alone, does not use walking device. PCP- Dilip Estrada MD, Beck Tender- Mina. ALLERGIES: Please see below. HOME MEDICATIONS: Please see below. PHYSICAL EXAMINATION: VS: Please see below CONSTITUTIONAL: No acute distress, resting comfortably, AAO x 3 EYES: PERRLA, EOM intact HENT, MOUTH: Normocephalic, atraumatic, moist mucous membranes, NECK: SUPPLE, no JVD, no lymphadenopathy, no carotid bruit CV: Regular rate and rhythm, S1S2 normal, no murmurs/rubs/gallops RESPIRATORY: Clear to auscultation bilaterally, no rales/rhonchi/wheezes GI: BS positive in 4 quadrants, soft, nontender, nondistended, no rebound or guarding, no organomegaly : Deferred MUSCULOSKELETAL: ROM decreased of Right ankle. No cyanosis, joint deformity. Popliteal, dorsalis pedis and posterior tibialis pulses were present in the RLE. Capillary refill in the right lower extremity was less than 2 seconds on exam. INTEGUMENTARY: several large bullae/blood blisters some of which show to have sheared off of the top layer of skin and actively bleeding RLE. The patient was tender on exam from his right foot up to his right hip. There were areas of bruising from the foot up to the hip at different stages of healing. NEUROLOGIC: Cranial Nerves II-XII are intact, no focal deficits PSYCHIATRIC: Mood and affect are normal LABORATORY DATA: Please see below IMAGING: Vacular US of RLE pending CXR: cardiomegaly XR of right tib/fib, foot, knee, femur and pelvis showed no fracture. Please see official reports in chart. ASSESSMENT: 69-year-old male with past medical history of multiple valve repairs and most recent mitral valve replacement, coronary artery disease, H or fibrillation on Coumadin admitted for further workup and treatment of extensive bruising with hematomas, soft tissue swelling with pain of the RLE, ambulatory dysfunction s/p fall. PLAN: RLE pain 2/2 to extensive bruising with hematomas, soft tissue swelling s/p fall -All XR above neg for fx -On coumadin, INR 3.29 so likely cause of extensive bruising and bleeding that has cause increased swelling/pain in RLE -Will hold coumadin, c/w diuretics -T bili elevated likely 2/2 to hemolysis with bruising -Starting wound care, PT/OT, pain control. -Elevate leg when not standing. -PFS consulted as may need rehab prior to returning home alone Supratherapeutic INR -INR 3.29, on coumadin -Holding coumadin tonight -Will discuss case with Dr. Enriquez in the AM (patient's cnc service technician whose clinic manages coumadin) to see if we should continue to hold or continue to give once therapeutic. -Daily PT/INR Anemia, acute likely 2/2 to bleeding -Still signs of bleeding, small areas with bright red blood oozing on exam of RLE -Denies lightheadedness, dizziness, increased weakness -BL Hgb 12-13, today 10.6. -Daily CBC, transfuse if <8 Hgb Hypotension, hx of HTN -One BP which was 90's systolic in ER -Holding BB, no s/s of low BP -If remains low, hold diuretic Atrial fibrillation, chronic -Rate controlled -Holding coumadin and BB currently Valve repair and replacement -Follows with Dr. Enriquez for cardiology -Stable HLD -C/w statin DVT px -Currently supratherapeutic, holding resuming coumadin for now DISPOSITION: Admit to acute inpatient, will tb with patient's cnc service technician in the AM to discuss coumadin. Will need PT/OT, may need rehab prior to discharge home alone. Vital Signs Vital Signs Date Time Temp Pulse Resp B/P (MAP) Pulse Ox O2 Delivery O2 Flow Rate FiO2 06/05/20 11:47 16 06/05/20 09:43 98.1 78 139/81 (100) 97 Room Air Laboratory Data Labs 24H Laboratory Tests 2 06/05/20 10:24: Immature Granulocyte % (Auto) 1.0, Neutrophils (%) (Auto) 77.4H, Lymphocytes (%) (Auto) 7.7L, Monocytes (%) (Auto) 13.3H, Eosinophils (%) (Auto) 0.4, Basophils (%) (Auto) 0.2, Neutrophils # (Auto) 8.4, Lymphocytes # (Auto) 0.8L, Monocytes # (Auto) 1.4H, Eosinophils # (Auto) 0.0, Basophils # (Auto) 0.0, Nucleated Red Blood Cells % (auto) 0.0, Prothrombin Time 34.2H, Prothromb Time International Ratio 3.29, Activated Partial Thromboplast Time 53.8H, Anion Gap 7L, Glomerular Filtration Rate > 60.0, Calcium Level 8.8, Total Bilirubin 2.8H, Direct Bilirubin 0.6H, Aspartate Amino Transf (AST/SGOT) 38H, Alanine Aminotransferase (ALT/SGPT) 43, Alkaline Phosphatase 58, Total Creatine Kinase 117, Creatine Kinase MB 1.4, Creatine Kinase MB Relative Index 1.20, Troponin I < 0.02, Total Protein 6.6, Albumin 3.0L, Albumin/Globulin Ratio 0.8, Lipase 109 06/05/20 10:42: Coronavirus (COVID-19)(PCR) NEGATIVE, Influenza Type A (RT-PCR) NEGATIVE, Influenza Type B (RT-PCR) NEGATIVE, Respiratory Syncytial Virus (PCR) NEGATIVE CBC/BMP Laboratory Tests 06/05/20 10:24 Microbiology Microbiology 06/05/20 Wound Culture, Received Pending Home Medications Scheduled Ascorbic Acid (Vitamin C) 500 Mg Tablet, 500 MG PO DAILY Atorvastatin Calcium (Atorvastatin Calcium) 80 Mg Tablet, 80 MG PO QHS Carvedilol (Carvedilol) 3.125 Mg Tablet, 3.125 MG PO BID Cholecalciferol (Vitamin D3) (Vitamin D3) 125 Mcg Capsule, 125 MCG PO DAILY Cyanocobalamin (Vitamin B-12) (B-12) 1,000 Mcg Tablet, 1,000 MCG PO DAILY Multivit-Mins/Iron/Folic/Lycop (Centrum Men's Tablet) 1 Each Tablet, 1 TAB PO DAILY Sodium Bicarbonate (Sodium Bicarbonate) 650 Mg Tablet, 650 MG PO BID Spironolactone (Spironolactone) 25 Mg Tablet, 25 MG PO Q2D Warfarin Sodium (Warfarin Sodium) 5 Mg Tablet, 5 MG PO 5XW MON, WED, FRI, SAT, SUN Warfarin Sodium (Warfarin Sodium) 5 Mg Tablet, 7.5 MG PO 2XW TU, TH Scheduled PRN Torsemide (Torsemide) 20 Mg Tablet, 20 MG PO DAILY PRN for FLUID RETENTION Allergies Coded Allergies: No Known Allergies (Verified , 03/03/18) A-FIB/CHADSVASC A-FIB History Current/History of A-Fib/PAF?: Yes Current PO Anticoag Therapy: Yes Age/Risk Factor Scoring CHADSVASC: CHADSVASC Response (Comments) Value Age Risk Factor Age 65-74 years old 1 Gender Risk Factor Male 0 Hx of CHF Yes 1 Hx of HTN Yes 1 Hx of Stroke/TIA/or VTE No 0 Hx of Diabetes No 0 Hx of Vascular Disease No 0 Total 3 Treatment Treatment ordered: NONE, Warfarin, Other Other anticoagulant ordered: bleeding Reason Anticoagulant not given: Current bleeding Martine Eubanks MD Jun 05, 2020 12:12
[2020-06-05] MEDS ORDERED: TORSEMIDE 20 MG TAB PO PRN (13:15)
[2020-06-05 13:21] VITALS: BP 123/71
[2020-06-05] MEDS ORDERED: traMADol 50 MG TAB PO PRN (14:00)
[2020-06-05] MEDS ORDERED: PERCOCET 5MG/325MG TAB PO PRN (14:00)
--- NOTE | 2020-06-05 19:04 | ECGEPIP ---
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
[2020-06-05] MEDS ORDERED: NS 500 ML IV ONE (20:45)
[2020-06-05] MEDS: ATORVASTATIN 20 MG TAB PO SCH (20:56)
[2020-06-05] MEDS: SODIUM BICARBONATE 325 MG TAB PO SCH (20:56)
[2020-06-05] MEDS: ACETAMINOPHEN TAB 650MG DOSE (2X325MG) PO PRN (20:57)
[2020-06-05] MEDS: NS 1,000 ML IV SCH (21:48)
[2020-06-05 22:00] VITALS: BP 134/69
[2020-06-05] MEDS ORDERED: VANCOMYCIN HCL 500 MG in D5W MINI-BAG PLUS 100 ML IV ONE (22:00)
[2020-06-05] MEDS: PIPERACILLIN/TAZOBACTAM SOD 4.5 GM in D5W MINI-BAG PLUS 50 ML IV SCH (22:19)
[2020-06-05] MEDS: CARVedilol 3.125 MG TAB PO SCH (22:20)
[2020-06-05 22:25] LABS: HEMATOCRIT 32.8 % (42.0-52.0); HEMOGLOBIN 10.5 g/dl (13.5-17.5); MEAN CORPUSCULAR HEMOGLOBIN 32.7 pg (27.0-33.0); MEAN CORPUSCULAR VOLUME 102.2 fl (80.0-96.0); PLATELET COUNT, AUTOMATED 182 10^3/uL (150-450); RED BLOOD COUNT 3.21 10^6/uL (4.30-6.10); WHITE BLOOD COUNT 9.6 10^3/uL (4.0-10.0)
[2020-06-05 22:34] LABS: BLOOD UREA NITROGEN 17 MG/DL (7-18); CALCIUM LEVEL 8.3 MG/DL (8.8-10.2); CARBON DIOXIDE LEVEL 27 MEQ/L (21-32); CHLORIDE LEVEL 106 MEQ/L (98-107); CREATININE FOR GFR 1.13 MG/DL (0.70-1.30); GLOMERULAR FILTRATION RATE > 60.0 (>42); GLUCOSE, FASTING 138 MG/DL (70-100); MAGNESIUM LEVEL 2.4 MG/DL (1.8-2.4); POTASSIUM SERUM 4.1 MEQ/L (3.5-5.1); SODIUM LEVEL 141 MEQ/L (136-145)
[2020-06-06] MEDS: VANCOMYCIN HCL 1,000 MG, VIAL MATE ADAPTER 1 EACH in D5W 250 ML IV SCH ×3 (00:15→16:10)
[2020-06-06] MEDS: PIPERACILLIN/TAZOBACTAM SOD 4.5 GM in D5W MINI-BAG PLUS 50 ML IV SCH ×4 (03:44→20:15)
[2020-06-06 06:00] VITALS: BP 123/64
[2020-06-06 06:29] LABS: HEMATOCRIT 29.1 % (42.0-52.0); HEMOGLOBIN 9.3 g/dl (13.5-17.5); MEAN CORPUSCULAR HEMOGLOBIN 32.3 pg (27.0-33.0); PLATELET COUNT, AUTOMATED 169 10^3/uL (150-450); RED BLOOD COUNT 2.88 10^6/uL (4.30-6.10); WHITE BLOOD COUNT 9.7 10^3/uL (4.0-10.0)
[2020-06-06 06:45] LABS: INR 3.32; PROTHROMBIN TIME 34.5 SECONDS (12.5-14.3)
[2020-06-06 06:46] LABS: PARTIAL THROMBOPLASTIN TIME 69.4 SECONDS (24.2-38.5)
[2020-06-06 06:54] LABS: ALBUMIN 2.5 GM/DL (3.2-5.2); ALT/SGPT 40 U/L (12-78); BILIRUBIN,TOTAL 2.5 MG/DL (0.2-1.0); BLOOD UREA NITROGEN 16 MG/DL (7-18); CALCIUM LEVEL 8.1 MG/DL (8.8-10.2); CARBON DIOXIDE LEVEL 26 MEQ/L (21-32); CHLORIDE LEVEL 107 MEQ/L (98-107); CREATININE FOR GFR 1.02 MG/DL (0.70-1.30); GLOMERULAR FILTRATION RATE > 60.0 (>42); GLUCOSE, FASTING 115 MG/DL (70-100); POTASSIUM SERUM 3.9 MEQ/L (3.5-5.1); SODIUM LEVEL 139 MEQ/L (136-145); TOTAL PROTEIN 6.2 GM/DL (6.4-8.2)
[2020-06-06] MEDS: SPIRONOLACTONE 25 MG TAB PO SCH (08:31)
[2020-06-06] MEDS: MULTIVITAMINS/MINERALS THERAP 1 TAB PO SCH (08:31)
[2020-06-06] MEDS: NS 1,000 ML IV SCH ×2 (08:32→14:52)
[2020-06-06] MEDS: CARVedilol 3.125 MG TAB PO SCH ×2 (08:32→21:00)
[2020-06-06] MEDS: SODIUM BICARBONATE 325 MG TAB PO SCH ×2 (08:35→20:18)
--- NOTE | 2020-06-06 11:54 | REP ---
INDICATION: r/o DVT COMPARISON: None. TECHNIQUE: Sykes scale and color Doppler evaluation using linear high frequency transducer. FINDINGS: Ultrasound examination of the right lower extremity deep venous structures from the common femoral vein to the popliteal vein demonstrates normal compressibility flow and wave patterns in response to respiration and augmentation. There is no evidence for deep venous thrombosis. IMPRESSION: No evidence for deep venous thrombosis. <Electronically signed by Reji Peraza > 06/05/20 [id number]
[2020-06-06 14:00] VITALS: BP 120/67
--- NOTE | 2020-06-06 16:02 | REP ---
INDICATION: NO CONTRAST PLEASE. COMPARISON: None. TECHNIQUE: Axial noncontrast images through the right knee with coronal and sagittal reformations. FINDINGS: Moderate to early advanced tricompartmental osteoarthritic degenerative changes include subchondral sclerosis, osteophytosis, joint space narrowing and chondrocalcinosis. No significant joint/suprapatellar effusion is appreciated. Moderate edema and subcutaneous infiltration is nonspecific. No evidence for hematoma or obvious discrete fluid collection/abscess. IMPRESSION: Moderate early advanced tricompartmental osteoarthritic degenerative changes. No obvious acute injury appreciated. <Electronically signed by Reji Peraza > 06/06/20 [id number]
--- NOTE | 2020-06-06 16:16 | CR ---
CONSULTATION DATE: CHIEF COMPLAINT: Left leg pain. HPI: Felix Bello is a 69-year-old male who one week ago had a fall onto his left lower extremity. He states slowly over the last weeks, swelling and pain has increased. He has multiple medical problems including multiple valve repairs and a mitral valve replacement who is on Coumadin. The increased pain and swelling caused him to present to the emergency room. He is going to be admitted to the medical service. His INR is currently 3.14. It was 3.29 upon arrival. He has a fair amount of pain behind the back of his knee and also throughout his leg. He is trying to keep it elevated. PAST MEDICAL HISTORY: 1. Atrial fibrillation on Coumadin. 2. Hypertension. 3. Hyperlipidemia. 4. History of multiple heart valve surgeries. 5. ASD repair. PAST SURGICAL HISTORY: 1. ASD repair. 2. Mitral valve replacement. 3. Second valve replacement surgery. 4. Mitral valve replacement, November,. 5. Stent replacement in November,. SOCIAL HISTORY: The patient does not smoke or use alcohol. He lives alone and is a community ambulator. He does not require a walker. HOME MEDICATIONS: 1. Vitamin C. 2. Atorvastatin. 3. Carvedilol. 4. Vitamin D3. 5. Vitamin B12. 6. Sodium bicarbonate. 7. Spironolactone. 8. Coumadin. ALLERGIES: No known drug allergies. PHYSICAL EXAMINATION: VITAL SIGNS: Temperature 99.7, pulse 84, blood pressure 119/67. GENERAL: Alert and oriented x3, no acute distress. PULMONARY: Regular, nonlabored breathing. CV: Regular DP pulse on the left foot. MUSCULOSKELETAL: There is moderate swelling throughout the entire left lower leg. There is blistering over the anterior compartment and serosanguineous drainage from the blisters in this region. His compartments are all compressible. I can passively flex his toes without any significant pain. He has a positive EHL and FHL but does have pain with active dorsiflexion and plantarflexion. Normal sensation to light touch in the superficial peroneal, deep peroneal, and tibial distribution. The foot is warm and well perfused. He does have tenderness behind his knee. IMAGING: X-rays of the femur and tibia are reviewed. There are no obvious fractures. There is evidence of osteoarthritis in the knee. The patient also had an ultrasound done which showed a large hematoma. IMPRESSION: Moderate to severe leg swelling with hematoma, status post fall with INR in the 3s. PLAN: I would suggest a CT scan of the knee to evaluate for any occult fracture as he is having a lot of pain in the back of his knee. I would defer to general surgery regarding any sort of compartment release. His compartments are compressible at this time. However, it sounds like his swelling is continuing to increase. He may need vascular intervention at some point which would require transfer as we do not have vascular surgery pet food deboner here today. Again, there is no fracture and this does appear to be a bleeding issue so we will defer to general surgery regarding any further intervention for the leg. He may benefit from a plastic surgery consult given his blistering over the anterior aspect of the leg as well. I will review the CT scan to ensure there is no acute occult fracture. Unfortunately at this time, I do not think he would tolerate a brace given the swelling in his leg and his discomfort distally in the leg. Once this has calmed down, if he is still having pain in his knee, a brace could be a consideration. ZEUS
--- NOTE | 2020-06-06 16:27 | IPNPDOC ---
Date Seen The patient was seen on 06/06/20. Progress Note SUBJECTIVE: Fevers overnight and into today, ranging 100.9-101.6. Pain severe with applying wt to the RLE. Discussed case with cardiology- recommended to continue to hold coumadin, do not reverse unless needed. Orthopedic surgery evaluated (Dr. Mcrae) who suggested right knee CT: no obvious acute injury appreciated. She recommended general surgery to evaluate. Dr. Desai to see later today. H/H dropped, INR still supratherapeutic. Although patient complains of continued pain, he denies any SOB, chest pain, n/v/d. OBJECTIVE: PHYSICAL EXAMINATION: VS: Please see below CONSTITUTIONAL: No acute distress, resting comfortably at bedside chair with right leg elevated, AAO x 3 EYES: PERRLA, EOM intact HENT, MOUTH: Normocephalic, atraumatic, moist mucous membranes NECK: SUPPLE, no JVD, no lymphadenopathy, no carotid bruit CV: Regular rate and rhythm, S1S2 normal, no murmurs/rubs/gallops RESPIRATORY: Clear to auscultation bilaterally, no rales/rhonchi/wheezes GI: BS positive in 4 quadrants, soft, nontender, nondistended, no rebound or guarding, no organomegaly : Deferred MUSCULOSKELETAL: Pain posterior right knee with palpation and movement, limiting ROM. ROM decreased of Right ankle. No cyanosis, joint deformity. Popliteal, dorsalis pedis and posterior tibialis pulses were present in the RLE. Capillary refill in the right lower extremity was less than 2 seconds on exam. INTEGUMENTARY: several large bullae/blood blisters some of which show to have sheared off of the top layer of skin and actively bleeding RLE- have not worsened since admission. The patient was tender on exam from his right foot up to his right hip. There were areas of bruising from the foot up to the hip at different stages of healing. NEUROLOGIC: Cranial Nerves II-XII are intact, no focal deficits PSYCHIATRIC: Mood and affect are normal LABORATORY DATA: Please see below IMAGING: CT of right knee without contrast: Moderate early advanced tricompartmental osteoarthritic degenerative changes. No obvious acute injury appreciated. Vacular US of RLE: Neg for DVT CXR: cardiomegaly XR of right tib/fib, foot, knee, femur and pelvis showed no fracture. Please see official reports in chart. ASSESSMENT: 69-year-old male with past medical history of multiple valve repairs and most recent mitral valve replacement, coronary artery disease, H or fibrillation on Coumadin admitted for further workup and treatment of extensive bruising with hematomas, soft tissue swelling with pain of the RLE, ambulatory dysfunction s/p fall. PLAN: RLE bruising with hematomas, mod-severe swelling s/p fall with severe RLE pain -Ortho: recommend CT right knee. States compartments are compressible but would defer to general surgery to assess due to elevated INR. Possibly may benefit from plastic surgery evaluation due to blistering. Would not tolerate brace on leg now but may in the future once blistering, etc improves. -CT right knee: No obvious acute injury appreciated. -All XRs from admission above neg for fx -On coumadin, INR slightly more elevated today at 3.32, held coumadin since admission. -T bili elevated likely 2/2 to hemolysis with bruising -Wound care, PT/OT, pain control. -Elevate leg when not standing. -Per cardiology (Dr. Enriquez, pt's seasoner hand) continue to hold coumadin and would not reverse unless needed. -General surgery (Dr. Desai) to assess to see if concern for skin necrosis, need to involve vascular -PFS consulted as will need rehab prior to returning home alone Fevers, r/o 2/2 to secondary infection of RLE wound vs. other source -WBC wnl but overnight into today, T 100.9-101.6 -CXR wnl -UA neg -Wound cx, Blood cultures x 2 sets pending -On vancomycin, zosyn from admission -Daily CBC Supratherapeutic INR -INR 3.32, continuing to hold coumadin -Will discuss case with Dr. Enriquez (patient's seasoner hand whose clinic manages coumadin) who suggested continue holding, do not reverse unless needed. -Daily PT/INR Anemia, acute likely 2/2 to bleeding -Still signs of bleeding, small areas with bright red blood oozing on exam of RLE -Denies lightheadedness, dizziness, increased weakness -BL Hgb 12-13, today dropped from 10.6 on admission to 9.3/29 -HD stable -Daily CBC, transfuse if <8 Hgb HTN -Stable -Holding BB currently with dropping H/H and wnl BP Atrial fibrillation, chronic -Rate controlled -Holding coumadin and BB currently Valve repair and replacement -Follows with Dr. Enriquez for cardiology -Stable HLD -C/w statin DVT px -Currently supratherapeutic, holding resuming coumadin for now Resolved issues: Hypotension DISPOSITION: Acute inpatient. General surgery to see this evening. Please see orthopedic surgery consult note. C/w PT/OT if no limitations, will likely need rehab prior to discharge home alone. VS, I&O, 24H, Fishbone Vital Signs/I&O Vital Signs Date Time Temp Pulse Resp B/P (MAP) Pulse Ox O2 Delivery O2 Flow Rate FiO2 06/06/20 14:00 100.9 80 18 120/67 (84) 92 Room Air I&O- Last 24 Hours up to 6 AM 06/06/20 06:00 Intake Total 2095 ml Output Total 475 ml Balance 1620 ml Laboratory Data 24H LABS Laboratory Tests 2 06/05/20 21:06: Nucleated Red Blood Cells % (auto) 0.0, Anion Gap 8, Glomerular Filtration Rate > 60.0, Calcium Level 8.3L, Magnesium Level 2.4 06/05/20 22:28: Lactic Acid Level 1.7 06/06/20 01:47: Urine Color PALAK, Urine Appearance HAZY, Urine pH 5.0, Urine Specific [place] 1.030, Urine Protein 1+H, Urine Glucose (UA) NEGATIVE, Urine Ketones NEGATIVE, Urine Blood NEGATIVE, Urine Nitrite NEGATIVE, Urine Bilirubin NEGATIVE, Urine Urobilinogen 4.0H, Urine Leukocyte Esterase NEGATIVE, Urine WBC (Auto) 2, Urine RBC (Auto) 2, Urine Hyaline Casts (Auto) 0, Urine Bacteria (Auto) NEGATIVE, Urine Squamous Epithelial Cells 0, Urine Transitional Epithelial Cells <1, Urine Uric Acid Crystals (Auto) SMALL, Urine Mucus (Auto) SMALL, Urine Sperm (Auto) 06/06/20 06:15: Nucleated Red Blood Cells % (auto) 0.0, Anion Gap 6L, Glomerular Filtration Rate > 60.0, Calcium Level 8.1L, Prothrombin Time 34.5H, Prothromb Time International Ratio 3.32, Activated Partial Thromboplast Time 69.4H, Total Bilirubin 2.5H, Aspartate Amino Transf (AST/SGOT) 30, Alanine Aminotransferase (ALT/SGPT) 40, Alkaline Phosphatase 59, Total Protein 6.2L, Albumin 2.5L, Albumin/Globulin Ratio 0.7 06/06/20 14:52: Total Creatine Kinase 83, Vancomycin Level Trough 18.3 CBC/BMP Laboratory Tests 06/05/20 21:06 06/06/20 06:15 Microbiology Microbiology 06/05/20 Blood Culture, Received Pending 06/05/20 Blood Culture, Received Pending 06/05/20 Wound Culture, Received Pending Current Medications Current Medications Medications (Trade) Dose Ordered Sig/Danika Route PRN Reason Start Time Stop Time Status Last Admin Dose Admin Acetaminophen (Tylenol Tab) 650 mg Q6HP PRN PO FEVER 06/05/20 20:45 06/05/20 20:57 Atorvastatin Calcium (Lipitor) 80 mg QHS PO 06/05/20 21:00 06/05/20 20:56 Carvedilol (COReg) 3.125 mg BID PO 06/05/20 21:00 06/06/20 08:32 Home Med (Med Rec Complete!) ASDIRECTED XX 06/05/20 10:45 06/05/20 10:39 DC Multivitamins (Theragram-M) 1 tab DAILY PO 06/06/20 09:00 06/06/20 08:31 Oxycodone/ Acetaminophen (Percocet 5mg/ 325mg Tablet) 1 tab Q6HP PRN PO SEVERE PAIN (PS 8-10) 06/05/20 14:00 Piperacillin Sod/ Tazobactam Sod 4.5 gm/Dextrose 50 ml @ 50 mls/hr Q6H IV 06/05/20 21:00 06/06/20 14:49 Sodium Bicarbonate (Sodium Bicarbonate) 650 mg BID PO 06/05/20 21:00 06/06/20 08:35 Sodium Chloride 1,000 ml @ 100 mls/hr Q10H IV 06/05/20 20:45 06/06/20 16:44 06/06/20 14:52 Spironolactone (Aldactone) 25 mg Q2D PO 06/06/20 09:00 06/06/20 08:31 Torsemide (Demadex) 20 mg DAILY PRN PO FLUID RETENTION 06/05/20 13:15 Tramadol HCl (Ultram) 50 mg Q6HP PRN PO MODERATE PAIN (PS 5-7) 06/05/20 14:00 06/06/20 03:45 Vancomycin HCl 1000 mg/IV Miscellaneous Supplies 1 each/ Dextrose 270 ml @ 270 mls/hr Q8H IV 06/06/20 00:00 06/06/20 16:10 Allergies Coded Allergies: No Known Allergies (Verified , 03/03/18) Martine Eubanks MD Jun 06, 2020 16:27
[2020-06-06] MEDS: ACETAMINOPHEN TAB 650MG DOSE (2X325MG) PO PRN (18:05)
[2020-06-06 18:26] VITALS: BP 145/75
[2020-06-06] MEDS: ATORVASTATIN 20 MG TAB PO SCH (20:16)
[2020-06-06 22:00] VITALS: BP 125/71
[2020-06-07] MEDS: VANCOMYCIN HCL 1,000 MG, VIAL MATE ADAPTER 1 EACH in D5W 250 ML IV SCH ×3 (00:26→20:59)
[2020-06-07] MEDS: PIPERACILLIN/TAZOBACTAM SOD 4.5 GM in D5W MINI-BAG PLUS 50 ML IV SCH ×4 (02:17→22:37)
[2020-06-07 03:05] VITALS: BP 151/89
[2020-06-07 06:00] VITALS: BP 109/65
[2020-06-07 06:38] LABS: HEMATOCRIT 29.6 % (42.0-52.0); HEMOGLOBIN 9.3 g/dl (13.5-17.5); MEAN CORPUSCULAR HEMOGLOBIN 32.4 pg (27.0-33.0); MEAN CORPUSCULAR HGB CONC 31.4 g/dl (32.0-36.5); MEAN CORPUSCULAR VOLUME 103.1 fl (80.0-96.0); PLATELET COUNT, AUTOMATED 185 10^3/uL (150-450); RED BLOOD COUNT 2.87 10^6/uL (4.30-6.10); WHITE BLOOD COUNT 10.3 10^3/uL (4.0-10.0)
[2020-06-07 06:47] LABS: INR 2.62; PROTHROMBIN TIME 28.6 SECONDS (12.5-14.3)
[2020-06-07 06:49] LABS: PARTIAL THROMBOPLASTIN TIME 52.7 SECONDS (24.2-38.5)
[2020-06-07 07:01] LABS: ALBUMIN 2.4 GM/DL (3.2-5.2); ALT/SGPT 55 U/L (12-78); BILIRUBIN,TOTAL 2.6 MG/DL (0.2-1.0); BLOOD UREA NITROGEN 18 MG/DL (7-18); CALCIUM LEVEL 8.1 MG/DL (8.8-10.2); CARBON DIOXIDE LEVEL 27 MEQ/L (21-32); CHLORIDE LEVEL 108 MEQ/L (98-107); CREATININE FOR GFR 1.08 MG/DL (0.70-1.30); GLOMERULAR FILTRATION RATE > 60.0 (>42); GLUCOSE, FASTING 121 MG/DL (70-100); POTASSIUM SERUM 4.4 MEQ/L (3.5-5.1); SODIUM LEVEL 142 MEQ/L (136-145); TOTAL PROTEIN 6.2 GM/DL (6.4-8.2)
[2020-06-07 07:35] VITALS: BP 134/69
[2020-06-07] MEDS: CARVedilol 3.125 MG TAB PO SCH ×2 (08:02→20:56)
[2020-06-07] MEDS: MULTIVITAMINS/MINERALS THERAP 1 TAB PO SCH (08:03)
[2020-06-07] MEDS: SODIUM BICARBONATE 325 MG TAB PO SCH ×2 (08:04→20:57)
[2020-06-07 09:21] LABS: CK-MB VALUE MASS 1.1 NG/ML (<3.6); MAGNESIUM LEVEL 2.5 MG/DL (1.8-2.4); MB/CK RELATIVE INDEX 1.64 (< OR =4); TROPONIN I 0.04 NG/ML (< 0.10)
[2020-06-07 13:28] VITALS: BP 130/70
--- NOTE | 2020-06-07 13:41 | IPNPDOC ---
Date Seen The patient was seen on 06/07/20. Progress Note SUBJECTIVE: OBJECTIVE: PHYSICAL EXAMINATION: VS: Please see below General: No respiratory distress. Anicteric. No jaundice . HEENT: Face is symmetric Normocephalic, atraumatic, moist mucous membranes no JVD, no lymphadenopathy, no carotid bruit . Heart: Regular rate and rhythm, S1S2 normal, no carotid bruits . Lungs: Clear to auscultation bilaterally. No adventitious breath sounds . Abdomen: BS positive in 4 quadrants, soft, nontender, nondistended, no rebound or guarding, no organomegaly Extremities: Right lower extremity extensive ecchymosis, edema, blisters, bandaged LABORATORY DATA: Please see below IMAGING: CT of right knee without contrast: Moderate early advanced tricompartmental osteoarthritic degenerative changes. No obvious acute injury appreciated. Vacular US of RLE: Neg for DVT CXR: cardiomegaly XR of right tib/fib, foot, knee, femur and pelvis showed no fracture. Please see official reports in chart. ASSESSMENT: 69-year-old male with history of multiple valve repairs and most recent mitral valve replacement, coronary artery disease, atrial fibrillation on chronic Coumadin admitted for inability to ambulate due to hematoma in the right lower extremity status post fall Problem list: Fall Right lower extremity hematoma status post fall while on chronic warfarin for A. fib Fever Anemia due to hematoma HTN Atrial fibrillation, chronic Mitral Valve repair and replacement Hyperlipidemia PLAN. Per Dr. Mcrae, orthopedic surgeon, patient does not require any acute intervention and would defer any surgical needs to Gen. surgery including washout if needed and management of compartment syndrome should it occur in the future. Dr. Desai has been consulted as of 06/06/2020 does not recommend any acute intervention. Patient's is currently off warfarin due to significant hematoma with possible infection on broad-spectrum antibiotics for now. CT of the extremity shows no abscess. Per the patient's organ builder, Dr. Enriquez, no need to reverse patient's warfarin. Despite a drop in his hemoglobin. Patient's hemoglobin has remained stable for 48 hours with no other signs of overt bleeding. . He has not required RBC transfusion. VS, I&O, 24H, Fishbone Vital Signs/I&O Vital Signs Date Time Temp Pulse Resp B/P (MAP) Pulse Ox O2 Delivery O2 Flow Rate FiO2 06/07/20 13:28 99.2 88 22 130/70 (90) 88 Room Air I&O- Last 24 Hours up to 6 AM 06/07/20 06:00 Intake Total 4470 ml Output Total 925 ml Balance 3545 ml Laboratory Data 24H LABS Laboratory Tests 2 06/06/20 14:52: Total Creatine Kinase 83, Vancomycin Level Trough 18.3 06/07/20 06:24: Nucleated Red Blood Cells % (auto) 0.0, Prothrombin Time 28.6H, Prothromb Time International Ratio 2.62, Activated Partial Thromboplast Time 52.7H, Anion Gap 7L, Glomerular Filtration Rate > 60.0, Calcium Level 8.1L, Total Bilirubin 2.6H, Aspartate Amino Transf (AST/SGOT) 45H, Alanine Aminotransferase (ALT/SGPT) 55, Alkaline Phosphatase 73, Total Protein 6.2L, Albumin 2.4L, Albumin/Globulin Ratio 0.6 06/07/20 08:24: Total Creatine Kinase 67, Whole Blood Ionized Calcium 4.4L, Magnesium Level 2.5H, Creatine Kinase MB 1.1, Creatine Kinase MB Relative Index 1.64, Troponin I 0.04# CBC/BMP Laboratory Tests 06/07/20 06:24 Microbiology Microbiology 06/05/20 Blood Culture - Preliminary, Resulted No growth after 24 hours . All specim... 06/05/20 Blood Culture - Preliminary, Resulted No growth after 24 hours . All specim... 06/05/20 Wound Culture, Received Pending FREDY VAZQUEZ MD Jun 07, 2020 13:41
[2020-06-07] MEDS ORDERED: CALCIUM GLUCONATE 1,000 MG in D5W MINI-BAG PLUS 100 ML IV ONE (14:15)
--- NOTE | 2020-06-07 15:55 | REP ---
INDICATION: jaundice COMPARISON: None. TECHNIQUE: Real time oh scale ultrasound examination using curved array transducer. FINDINGS: Liver is mildly enlarged measuring 18.6 cm in craniocaudal length without focal hepatic lesion identified. The pancreas is poorly evaluated due to interposed bowel gas. The gallbladder demonstrates wall thickening to 5 mm and gallstones. No biliary ductal dilatation is appreciated and the common bile duct measures 3.9 mm diameter. Right kidney is normal in reniform shape without hydronephrosis and measures 11.0 x 4.1 x 4.9 cm. Incidental note is made of small right pleural effusion and 4 cm ventral hernia containing fat and suspected bowel. IMPRESSION: 1. Cholelithiasis without definite evidence for acute cholecystitis. 2. Hepatocellular disease without focal hepatic lesion identified. 3. Ventral hernia containing fat and suspected loop of small bowel. 4. Small right pleural effusion. <Electronically signed by Reji Peraza > 06/07/20 [id number]
--- NOTE | 2020-06-07 18:23 | IPN ---
PROGRESS NOTE DATE: 06/07/2020 The patient was not seen today, but CT scan of the knee was reviewed. There is significant osteoarthritis, which is likely contributing to the patient's pain. He would likely benefit from bracing or cortisone as an outpatient. We will continue to defer leg swelling and elevated INR to general surgery; regarding whether any surgery is indicated for him at this time please contact their service. He can be seen at [facility] for his knee arthritis as an outpatient should he desire. ZEUS
[2020-06-07] MEDS: ATORVASTATIN 20 MG TAB PO SCH (20:56)
[2020-06-07] MEDS: ACETAMINOPHEN TAB 650MG DOSE (2X325MG) PO PRN (20:57)
[2020-06-07 22:00] VITALS: BP 133/70
[2020-06-08] MEDS: PIPERACILLIN/TAZOBACTAM SOD 4.5 GM in D5W MINI-BAG PLUS 50 ML IV SCH ×4 (03:03→22:00)
[2020-06-08 06:00] VITALS: BP 131/71
[2020-06-08 06:20] LABS: HEMATOCRIT 29.8 % (42.0-52.0); HEMOGLOBIN 9.2 g/dl (13.5-17.5); MEAN CORPUSCULAR HEMOGLOBIN 32.1 pg (27.0-33.0); MEAN CORPUSCULAR HGB CONC 30.9 g/dl (32.0-36.5); MEAN CORPUSCULAR VOLUME 103.8 fl (80.0-96.0); PLATELET COUNT, AUTOMATED 223 10^3/uL (150-450); RED BLOOD COUNT 2.87 10^6/uL (4.30-6.10); WHITE BLOOD COUNT 9.6 10^3/uL (4.0-10.0)
[2020-06-08 06:33] LABS: INR 2.06; PROTHROMBIN TIME 23.7 SECONDS (12.5-14.3)
[2020-06-08 06:34] LABS: PARTIAL THROMBOPLASTIN TIME 49.1 SECONDS (24.2-38.5)
[2020-06-08 06:50] LABS: ALBUMIN 2.6 GM/DL (3.2-5.2); ALT/SGPT 62 U/L (12-78); BILIRUBIN,TOTAL 2.5 MG/DL (0.2-1.0); BLOOD UREA NITROGEN 20 MG/DL (7-18); CALCIUM LEVEL 8.1 MG/DL (8.8-10.2); CARBON DIOXIDE LEVEL 28 MEQ/L (21-32); CHLORIDE LEVEL 109 MEQ/L (98-107); CREATININE FOR GFR 1.11 MG/DL (0.70-1.30); GLOMERULAR FILTRATION RATE > 60.0 (>42); GLUCOSE, FASTING 108 MG/DL (70-100); POTASSIUM SERUM 4.3 MEQ/L (3.5-5.1); SODIUM LEVEL 142 MEQ/L (136-145)
[2020-06-08] MEDS: VANCOMYCIN HCL 1,000 MG, VIAL MATE ADAPTER 1 EACH in D5W 250 ML IV SCH ×2 (08:06→20:09)
[2020-06-08] MEDS: SPIRONOLACTONE 25 MG TAB PO SCH (08:06)
[2020-06-08] MEDS: MULTIVITAMINS/MINERALS THERAP 1 TAB PO SCH (08:07)
[2020-06-08] MEDS: SODIUM BICARBONATE 325 MG TAB PO SCH ×2 (08:07→22:01)
[2020-06-08] MEDS: CARVedilol 3.125 MG TAB PO SCH ×2 (08:07→20:09)
[2020-06-08 14:00] VITALS: BP 112/78
--- NOTE | 2020-06-08 14:00 | IPNPDOC ---
Date Seen The patient was seen on 06/08/20. Progress Note SUBJECTIVE: no c/o cp,sob, palpitations. Tele: pvc's, bigeminy. electrolytes supplemented yesterday. 08/06 Echo reviewed . card sotelo negative febrile 100.7 despite abx. no pain when right leg is elevated. discomfort 6/10 on pain scale when he bears weight on it. sits on recliner most of the day with leg elevated. OBJECTIVE: PHYSICAL EXAMINATION: VS: Please see below General: aaox 3 no distress . HEENT: no jvd neck supple . Heart: Regular rate and rhythm, S1S2 normal, no carotid bruits . Lungs: Clear to auscultation bilaterally. No adventitious breath sounds . Abdomen: BS positive in 4 quadrants, soft, nontender, nondistended, no rebound or guarding, no organomegaly Extremities: Right lower extremity extensive ecchymosis, edema, blisters, bandaged LABORATORY DATA: Please see below IMAGING: CT of right knee without contrast: Moderate early advanced tricompartmental osteoarthritic degenerative changes. No obvious acute injury appreciated. Vacular US of RLE: Neg for DVT CXR: cardiomegaly XR of right tib/fib, foot, knee, femur and pelvis showed no fracture. Please see official reports in chart. ECHOCARDIOGRAM: DATE OF PROCEDURE: 08/10/2019 DATE OF : 1950 AGE: 68 GENDER: Male HEIGHT: 66 inches WEIGHT: 194 pounds BODY SURFACE AREA: 1.98 meters squared INPATIENT: [address] [place] [address], Room 4223. REFERRING PHYSICIAN: Dr. Burak Castillo INDICATION: Heart failure (unspecified). MEASUREMENTS: 2D Measurements: RV: 5.8 cm LV: 5.9 cm Septum: 1.4 cm Posterior wall: 1.4 cm Aortic root: 3.8 cm LA: 7.6 cm LVEF: 75% DOPPLER MEASUREMENTS: AV: 1.29 meters per second LVOT: 0.91 meters per second LVOT diameter: 2.0 cm MV-E: 140 Early mitral deceleration time: 211 milliseconds E prime medial: 11 E prime lateral: 13 Average E/E prime ratio: 11.5/PCWP: 16 mmHg PV: 0.6 meters per second Pulmonary artery acceleration time: 60 milliseconds RVSP: At least 60 mmHg IVC: 2.4 cm COMMENTS: Underlying atrial fibrillation with controlled ventricular response. No intraventricular conduction disturbance. M-mode and two-dimensional echocardiography was performed with pulsed, continuous wave, color flow and tissue Doppler. Mildly dilated left ventricle with moderate eccentric hypertrophy. There was flattening of the interventricular septum during systole in keeping with right ventricular pressure overload. Other left ventricular jolley were hyperkinetic. Grossly dilated left atrium with current estimated mean left atrial pressure at least mildly increased. Moderately dilated right heart chambers with right ventricular free wall hypokinesis and Doppler evidence of severe pulmonary hypertension. Mild to moderately dilated inferior vena cava with absent respiratory collapse in keeping with significantly elevated central venous pressure/right heart failure. Mild aortic valvular sclerosis with adequate cusp separation but premature cusp closure in keeping with reduced forward stroke volume. There was mild aortic insufficiency. Normal aortic dimensions. Mildly thickened mitral valvular apparatus with normal leaflet excursion but posterior systolic buckling of the posterior leaflet and at least moderate to moderately severe eccentrically directed mitral insufficiency to the roof of the left atrium. Normal appearing tricuspid valve with severe tricuspid insufficiency. No apparent intracardiac mass or pericardial effusion. ASSESSMENT: 69-year-old male with history of multiple valve repairs and most recent mitral valve replacement, coronary artery disease, atrial fibrillation on chronic Coumadin admitted for inability to ambulate due to hematoma in the right lower extremity status post fall Problem list: Fall Right lower extremity hematoma status post fall while on chronic warfarin for A. fib Fever with ?infected Hematoma Anemia due to hematoma HTN Atrial fibrillation, chronic Mitral Valve repair and replacement Hyperlipidemia NSVT PLAN. continue with full course of iv abx 7days. no signs of abscess on ct LE. no compartment syndrome or need for surgical exploration at this time. General Surgery and Ortho consulted. hemoglobin stable. will ask Dr. Enriquez when his anticoagulation can be resumed. cardmarks, echo, electrolytes have been reviewed to determine etiology of NSVT. may need a repeat stress test as outpt if persistent, or at least repeat the 2D echo to look for wall motion abnormalities. elevate right leg. VS, I&O, 24H, Fishbone Vital Signs/I&O Vital Signs Date Time Temp Pulse Resp B/P (MAP) Pulse Ox O2 Delivery O2 Flow Rate FiO2 06/08/20 08:07 79 134/72 06/08/20 06:00 98.0 18 97 Room Air I&O- Last 24 Hours up to 6 AM 06/08/20 06:00 Intake Total 870 ml Output Total 1000 ml Balance -130 ml Laboratory Data 24H LABS Laboratory Tests 2 06/07/20 14:55: Vancomycin Level Trough 22.3H 06/08/20 05:24: Nucleated Red Blood Cells % (auto) 0.0, Prothrombin Time 23.7H, Prothromb Time International Ratio 2.06, Activated Partial Thromboplast Time 49.1H, Anion Gap 5 L, Glomerular Filtration Rate > 60.0, Calcium Level 8.1L, Total Bilirubin 2.5H, Aspartate Amino Transf (AST/SGOT) 49H, Alanine Aminotransferase (ALT/SGPT) 62, Alkaline Phosphatase 81, Total Protein 6.0L, Albumin 2.6L, Albumin/Globulin Ratio 0.8 CBC/BMP Laboratory Tests 06/08/20 05:24 Microbiology Microbiology 06/05/20 Blood Culture - Preliminary, Resulted No Growth after 48 hours. All Specime... 06/05/20 Blood Culture - Preliminary, Resulted No Growth after 48 hours. All Specime... 06/05/20 Wound Culture, Received Pending FREDY VAZQUEZ MD Jun 08, 2020 13:54
[2020-06-08] MEDS ORDERED: CARVedilol 3.125 MG TAB PO ONE (14:30)
[2020-06-08] MEDS ORDERED: CALCIUM GLUCONATE 1,000 MG in D5W MINI-BAG PLUS 100 ML IV ONE (14:30)
[2020-06-08 15:14] LABS: MB/CK RELATIVE INDEX 2.78 (< OR =4); TROPONIN I 0.03 NG/ML (< 0.10)
[2020-06-08] MEDS: ATORVASTATIN 20 MG TAB PO SCH (20:06)
[2020-06-08 22:00] VITALS: BP 108/74
[2020-06-08] MEDS: ACETAMINOPHEN TAB 650MG DOSE (2X325MG) PO PRN (22:01)
[2020-06-09] MEDS: PIPERACILLIN/TAZOBACTAM SOD 4.5 GM in D5W MINI-BAG PLUS 50 ML IV SCH ×3 (03:07→15:53)
[2020-06-09 06:00] VITALS: BP 121/77
[2020-06-09 08:23] VITALS: BP 119/73
[2020-06-09] MEDS: VANCOMYCIN HCL 1,000 MG, VIAL MATE ADAPTER 1 EACH in D5W 250 ML IV SCH (08:23)
[2020-06-09] MEDS: SODIUM BICARBONATE 325 MG TAB PO SCH (08:23)
[2020-06-09] MEDS: CARVedilol 3.125 MG TAB PO SCH (08:23)
[2020-06-09] MEDS: MULTIVITAMINS/MINERALS THERAP 1 TAB PO SCH (08:25)
[2020-06-09] MEDS: ACETAMINOPHEN TAB 650MG DOSE (2X325MG) PO PRN (08:25)
[2020-06-09] MEDS ORDERED: ENTRESTO 24-26MG TABLET (SACUBITRIL/VALSARTAN) PO SCH (09:00)
[2020-06-09 09:05] LABS: BASO % 0.1 % (0.0-1.0); EOS # 0.3 10^3/uL (0.0-0.5); EOS % 3.3 % (0.0-3.0); HEMATOCRIT 28.4 % (42.0-52.0); LYMPH % 12.9 % (24.0-44.0); MEAN CORPUSCULAR HEMOGLOBIN 32.6 pg (27.0-33.0); MEAN CORPUSCULAR HGB CONC 31.7 g/dl (32.0-36.5); MEAN CORPUSCULAR VOLUME 102.9 fl (80.0-96.0); MONO % 13.3 % (0.0-5.0); NEUTROPHILS # 5.2 10^3/uL (1.5-8.5); NEUTROPHILS % 69.3 % (36.0-66.0); PLATELET COUNT, AUTOMATED 215 10^3/uL (150-450); RED BLOOD COUNT 2.76 10^6/uL (4.30-6.10); WHITE BLOOD COUNT 7.5 10^3/uL (4.0-10.0)
[2020-06-09 09:08] LABS: BLOOD UREA NITROGEN 17 MG/DL (7-18); CALCIUM LEVEL 8.5 MG/DL (8.8-10.2); CARBON DIOXIDE LEVEL 25 MEQ/L (21-32); CHLORIDE LEVEL 110 MEQ/L (98-107); CK-MB VALUE MASS 1.2 NG/ML (<3.6); CPK CREATINE PHOSPHOKINASE 52 U/L (39-308); CREATININE FOR GFR 1.05 MG/DL (0.70-1.30); GLOMERULAR FILTRATION RATE > 60.0 (>42); GLUCOSE, FASTING 105 MG/DL (70-100); MAGNESIUM LEVEL 2.5 MG/DL (1.8-2.4); MB/CK RELATIVE INDEX 2.31 (< OR =4); SODIUM LEVEL 142 MEQ/L (136-145); TROPONIN I 0.03 NG/ML (< 0.10)
[2020-06-09 09:49] LABS: ERYTHROCYTE SEDIMENTATION RATE 80 mm/hr (0-20)
--- NOTE | 2020-06-09 10:04 | IPNPDOC ---
Date Seen The patient was seen on 06/09/20. Progress Note SUBJECTIVE: Patient complains of stabbing pain in the right lower extremity when he bears weight on it with ambulation. He also complains of slight dizziness, exertional. Last 15-20 seconds. When he is ambulating in usually abates and resolves without intervention. When he sits down and rests. . He denies any chest pain, pressure, tightness, lightheadedness or dizziness despite having 34 beats of nonsustained V. tach on telemetry yesterday, but a signs remained stable without any hypot ension. Patient was given extra dose of Coreg 3.125 mg by mouth yesterday, and per telemetry techni heidy, Patient has had no repeat episodes of nonsustained V. tach OBJECTIVE: PHYSICAL EXAMINATION: VS: Please see below General: Appears his stated age. No respiratory distress, cyanosis . HEENT: no jvd neck supple, full range of motion. No cervical lymphadenopathy, JVD or thyromegaly . Heart: Regular rate and rhythm, S1S2 normal, no carotid bruits . Lungs: Clear to auscultation bilaterally. No no wheezing or rales . Abdomen: BS positive in 4 quadrants, soft, nontender, nondistended, no rebo und or guarding, no organomegaly Extremities: Right lower extremity extensive ecchymosis, edema, blisters, bandaged elevated on one pillow LABORATORY DATA: Please see below IMAGING: CT of right knee without contrast: Moderate early advanced tricompartmental osteoarthritic degenerative changes. No obvious acute injury appreciated. Vacular US of RLE: Neg for DVT CXR: cardiomegaly XR of right tib/fib, foot, knee, femur and pelvis showed no fracture. Please see official reports in chart. ECHOCARDIOGRAM: DATE OF PROCEDURE: 08/10/2019 DATE OF : 1950 AGE: 68 GENDER: Male HEIGHT: 66 inches WEIGHT: 194 pounds BODY SURFACE AREA: 1.98 meters squared INPATIENT: [address] [place] [address], Room 4223. REFERRING PHYSICIAN: Dr. Burak Castillo INDICATION: Heart failure (unspecified). MEASUREMENTS: 2D Measurements: RV: 5.8 cm LV: 5.9 cm Septum: 1.4 cm Posterior wall: 1.4 cm Aortic root: 3.8 cm LA: 7.6 cm LVEF: 75% DOPPLER MEASUREMENTS: AV: 1.29 meters per second LVOT: 0.91 meters per second LVOT diameter: 2.0 cm MV-E: 140 Early mitral deceleration time: 211 milliseconds E prime medial: 11 E prime lateral: 13 Average E/E prime ratio: 11.5/PCWP: 16 mmHg PV: 0.6 meters per second Pulmonary artery acceleration time: 60 milliseconds RVSP: At least 60 mmHg IVC: 2.4 cm COMMENTS: Underlying atrial fibrillation with controlled ventricular response. No intraventricular conduction disturbance. M-mode and two-dimensional echocardiography was performed with pulsed, continuous wave, color flow and tissue Doppler. Mildly dilated left ventricle with moderate eccentric hypertrophy. There was flattening of the interventricular septum during systole in keeping with right ventricular pressure overload. Other left ventricular jolley were hyperkinetic. Grossly dilated left atrium with current estimated mean left atrial pressure at least mildly increased. Moderately dilated right heart chambers with right ventricular free wall hypokinesis and Doppler evidence of severe pulmonary hypertension. Mild to moderately dilated inferior vena cava with absent respiratory collapse in keeping with significantly elevated central venous pressure/right heart failure. Mild aortic valvular sclerosis with adequate cusp separation but premature cusp closure in keeping with reduced forward stroke volume. There was mild aortic insufficiency. Normal aortic dimensions. Mildly thickened mitral valvular apparatus with normal leaflet excursion but posterior systolic buckling of the posterior leaflet and at least moderate to moderately severe eccentrically directed mitral insufficiency to the roof of the left atrium. Normal appearing tricuspid valve with severe tricuspid insufficiency. No apparent intracardiac mass or pericardial effusion. ASSESSMENT: 69-year-old male with history of multiple valve repairs and most recent mitral valve replacement, coronary artery disease, atrial fibrillation on chronic Coumadin admitted for inability to ambulate due to hematoma in the right lower extremity status post fall Fall -Resulting in right lower extremity hematoma in the setting of chronic Coumadin use for mitral valve replacement -assisted ambulation, physical therapy, occupational therapy consulted -Fall precautions Right lower extremity hematoma -status post fall while on chronic warfarin for A. fib -Warfarin and has been held -[facility] technical sourcing recruiter, Dr. Enriquez. No need to reverse patient's warfarin. -Hemoglobin and hematocrit remained stable off the warfarin -Currently elevated with no signs of compartment syndrome -General surgeon, Dr. Desai recommended elevation, activity as tolerated and topical antibiotics Right lower extremity cellulitis / bullous lesions -status post fall with right lower extremity hematoma -On broad-spectrum intravenous vancomycin, Zosyn, to complete a 7 day course -He has remained afebrile with no white count -Advanced surgical consult with Dr. Sheth for wound care -No need for debridement. General surgery -Elevate on air per Dr. Desai and activity as tolerated Anemia due to hematoma -In the setting of chronic warfarin for mitral valve replacement -Status post 3 units RBC transfusion -Hemoglobin, hematocrit has remained stable since the patient has been off warfarin with no signs of active bleeding -We'll defer to the patient's technical sourcing recruiter regarding timing of warfarin resumption NSVT -No cardiac ischemia on serial cardiac markers with negative troponin -Electrolytes have been optimized -Potassium to be Between 4-5 -Ionize calcium to be greater than 4 -Magnesium to be greater than 2 -Repeat echocardiogram ordered and completed but report is not available -Patient was asymptomatic with stable vital signs during the 34 beats of nonsustained V. tach on 06/08/2020. HTN -Controlled on Coreg 3.125 twice a day Atrial fibrillation, chronic -Off warfarin due to hematoma and blood loss anemia requiring blood transfusion Mitral Valve repair and replacement -Off warfarin Hyperlipidemia -Chronic Disposition : patient is to complete 7 days of intravenous antibiotics until last dose on 06/13/2020. He will most likely need rehabilitation and resumption of his warfarin prior to hospital discharge VS, I&O, 24H, Pancho Vital Signs/I&O Vital Signs Date Time Temp Pulse Resp B/P (MAP) Pulse Ox O2 Delivery O2 Flow Rate FiO2 06/09/20 08:23 83 119/73 06/09/20 06:00 96.8 20 98 Room Air I&O- Last 24 Hours up to 6 AM 06/09/20 06:00 Intake Total 1770 ml Output Total 925 ml Balance 845 ml Laboratory Data 24H LABS Laboratory Tests 2 06/08/20 14:38: Whole Blood Ionized Calcium 4.5, Total Creatine Kinase 72, Creatine Kinase MB 2.0, Creatine Kinase MB Relative Index 2.78, Troponin I 0.03# 06/09/20 07:19: Immature Granulocyte % (Auto) 1.1, Neutrophils (%) (Auto) 69.3H, Lymphocytes (%) (Auto) 12.9L, Monocytes (%) (Auto) 13.3H, Eosinophils (%) (Auto) 3.3H, Basophils (%) (Auto) 0.1, Neutrophils # (Auto) 5.2, Lymphocytes # (Auto) 1.0L, Monocytes # (Auto) 1.0H, Eosinophils # (Auto) 0.3, Basophils # (Auto) 0.0, Nucleated Red Blood Cells % (auto) 0.0, Erythrocyte Sedimentation Rate 80H, Procalcitonin 0.08 06/09/20 07:21: Total Creatine Kinase 52, Creatine Kinase MB 1.2, Creatine Kinase MB Relative Index 2.31, Troponin I 0.03, Anion Gap 7L, Glomerular Filtration Rate > 60.0, Calcium Level 8.5L, Magnesium Level 2.5H, C-Reactive Protein, Quantitative 7.30H, Vancomycin Level Trough 20.0 CBC/BMP Laboratory Tests 06/09/20 07:19 06/09/20 07:21 Microbiology Microbiology 06/05/20 Blood Culture - Preliminary, Resulted No Growth after 72 hours. All specime... 06/05/20 Blood Culture - Preliminary, Resulted No Growth after 72 hours. All specime... 06/05/20 Wound Culture - Final, Complete Staphylococcus Sp Coag FREDY Pinon MD Jun 09, 2020 09:57
--- NOTE | 2020-06-09 12:32 | CR ---
CONSULTATION DATE: 06/09/2020 CONSULTATION REQUESTED BY: Dr. Olmos REASON FOR CONSULTATION: Left lower extremity hematoma. A 69-year-old male fell 10 days ago and sustained a left pretibial hematoma. Patient is anticoagulated for atrial fibrillation on Coumadin. He sought advice from his medical doctor who indicated that he should put a wrap on his leg. No further treatment was indicated by the patient. He had difficulty with walking due to pain, and the hematoma expanded, and therefore he was admitted. When seen today, the patient is sitting in a chair with his leg in the dependent position. He has had a foam dressing over the hemartoma without previous drainage or debridement. There is no compression stocking being utilized. The patient is afebrile with a normal white count. Treatment for hematomas is to evacuate all blood from the hematoma. This is a bedside procedure without local anesthesia using a forceps and a scissors and incising the inferior portion of the hematoma, placing gentle pressure on the hematoma to evacuate the old clotted blood. The wound should then be cleaned with Vashe wound cleanser for 10 minutes and then covered with a Hydrofera Blue foam and covered with an extra-absorb or OptiLock dressing. These two dressings should be secured with a Kerlix or Derik, and then a TubiGrip stocking should be applied. It is best to measure the leg to ensure the appropriate size of the Tubigrip stocking. The stocking should be placed over the left lower extremity from the transmetatarsal level to the popliteal level. Patient should be at bedrest with mild Trendelenburg to assist with decompression of the leg. As the patient is afebrile and has a normal white count, there is no indication for antibiotic therapy, The patient can be restarted on his Coumadin. This is not a contraindication. It should be noted that Hydrofera Blue foam is antimicrobial, containing gentian jenny and methylene blue, and will treat gram-positive and gram-negative bacteria. Systemic antibiotics have little play in treating hematomas and/or erythematous extremities. We would be glad to see the patient at our wound clinic if he stabilized and discharged; however, his cardiac status takes priority. [facility] HOSPITALMaria Elena
--- NOTE | 2020-06-09 12:32 | ECHO ---
DATE OF PROCEDURE: 06/08/2020 Age: 69 Gender: Male Height: 66 inches Weight: 170 pounds REFERRING PHYSICIAN: Adriana Olmos MD INDICATION: Cardiac dysrhythmia, unspecified. MEASUREMENTS: 2D Measurements: Aortic root 3.9 cm Proximal ascending aorta 4.0 cm Left atrium 8.1 cm Left ventricle diastole 7.2 cm Intraventricular septum 1.09 cm Posterior wall 1.17 cm Doppler Measurements: Trace aortic regurgitation No aortic stenosis Aortic valve velocity 170 cm/s LVOT velocity 129 cm/s LVOT VTI 20.5 cm No mitral regurgitation No mitral stenosis Mitral E velocity (continuous phase) 237 cm/s Mitral valve pressure halftime 107 msec Very mild tricuspid regurgitation No tricuspid stenosis Estimated right ventricular systolic pressure at least 65 mmHg Very mild pulmonic regurgitation Pulmonary artery acceleration time 72 msec DESCRIPTION: Rhythm was atrial fibrillation with frequent demand ventricular pacing. This was a 2D, M-mode, color flow Doppler, and pulsed wave Doppler examination including mitral annular tissue Doppler. Image quality was moderately technically difficult. CONCLUSIONS: * Moderately dilated left ventricular (7.2 cm end-diastole) with severe reduction of overall LV systolic function. LVEF of 20% by visual estimate. Visual appearance of low cardiac output. Left ventricular ejection fraction 20% by visual estimate. Paradoxical septal motion with severe hypokinesis of the basal anteroseptal segment and mid anteroseptal segment. Moderate hypokinesis of the basal and mid inferoseptal segments. Akinesis of the basal mid inferior, inferolateral, and anterolateral segments. Normal contraction of the basal and mid anterior segments. Moderate hypokinesis of the left ventricle apex and apical cap segments. No LV apical thrombus. LV diastolic function could not be adequately determined in the setting of atrial fibrillation and status post mitral valve replacement. * Well-seated and normally functioning mitral valve bioprosthesis. * Severe left atrial dilatation. * Suggestive of severe elevation of estimated right ventricle systolic pressure (at least 68 mmHg with estimated right atrial pressure of at least 20 mmHg). Very mild tricuspid regurgitation. Normal right ventricle size and systolic function. * Inferior vena cava plethora with reduced respiratory variation suggestive of elevated central venous pressure of at least 20 mmHg. * Status post tricuspid valve repair with a tricuspid valve annuloplasty ring. No tricuspid stenosis. Very mild tricuspid regurgitation. * Mild dilatation of the aortic root at the level of the sinus of Valsalva and proximal ascending aorta. * Presence of an endocardial right ventricle pacemaker lead. * Very mild aortic valve sclerosis of a 3-cuspid aortic valve aortic valve. Trace aortic regurgitation. * A tiny amount of pericardial effusion seen posteriorly. * Moderately technically difficult echocardiogram. MTDD
[2020-06-09 14:00] VITALS: BP 121/73
[2020-06-09] MEDS ORDERED: CALCIUM GLUCONATE 1,000 MG in D5W MINI-BAG PLUS 100 ML IV ONE (16:00)
[2020-06-09 16:11] LABS: HEPATITIS A ANTIBODY IGM NEGATIVE (NEGATIVE); HEPATITIS B CORE ANTIBODY IGM NEGATIVE (NEGATIVE); HEPATITIS B SURFACE ANTIGEN NEGATIVE (NEGATIVE); HEPATITIS C VIRUS ABY INDEX 0.2 INDEX (<0.8)
[2020-06-09] MEDS ORDERED: ENTR1TAB PO (17:13)
[2020-06-09] MEDS ORDERED: DOXYCYCLINE HYCLATE 100MG TABLET PO SCH (17:15)
[2020-06-09] MEDS ORDERED: DOXY-350 PO (17:15)
--- NOTE | 2020-06-09 17:45 | DS.PDOC ---
Discharge Summary General Date of Admission Jun 05, 2020 at 12:13 Date of Discharge 06/09/20 Discharge Summary PROCEDURES PERFORMED DURING STAY: NONE ADMITTING DIAGNOSES: Mechanical fall Coagulopathy secondary to warfarin Right leg hematoma status post fall DISCHARGE DIAGNOSES: Right lower extremity hematoma 6cm x 3.8 cm x 1.5 cm Right lower extremity cellulitis Sepsis Nonsustained ventricular tachycardia-34 beats on telemetry New finding systolic congestive heart failure, ejection fraction 20% Acute blood loss anemia Hypocalcemia Incidental finding of cholelithiasis Hyperbilirubinemia DISCHARGE MEDICATIONS: Please see below. ALLERGIES: Please see below. COMPLICATIONS/CHIEF COMPLAINT: Contusion Rt Leg,Fall,Open Wound Lower Leg. CONSULTANTS: CARDIOLOGY-DR. BRISENO (READ ECHO) ORTHOPEDIC SURGEON-DR. DE LUNA GENERAL SURGEON-DR. STEVENS INTERNATIONAL COORDINATOR/GENERAL SURGEON-DR. SHETH VIA TELEMEDICINE DISCHARGE INSTRUCTIONS: Transfer to [facility] for AICD evaluation, Left Heart Catheterization for new SYSTOLIC CHF EF 20% Accepting MD: Dr. Knight Wound care: per Dr. Sheth's recommendations. HOSPITAL COURSE: 69 Male who lives alone w pmh significant for ASD repair, multiple mitral valve repairs, bovine mitral valve replacement 11/2019, CAD stent 11/2019, chronic atrial fibrillation on warfarin , diastolic chf EF75% on Echo 07/2019, severe pulmonary hypertension at least 68 mmHg, tricuspid valve annuloplasty, pacemaker, HTN, Dyslipidemia was in his usual state of health until one week ago on 05/30/20 when he lost his balance while going up the stairs carrying something, and landed on his right side with worsening pain in the right leg, hip with increased swelling, redness, and stabbing pain, unable to ambulate. By 06/04/20, pt was limping and unable to bear weight on his right leg, prompting him to call the ambulance. In the ER, pt was found to be febrile 101.8, white count 11.8, xray tib/fib/femur/pelvis negative for fracture. Orthopedic Surgery was concerned about compartment syndrome, and obtained CT right LE: tricompartment DDD, with recommendation for general surgery Dr. Stevens to evaluate for compartment syndrome. Pt had bullous lesions on the anguiano, but no abscess on ultrasound of the leg, and negative for DVT. Pt's INR was 3.23, and his warfarin was held, and not reversed per his Faculty Administrator Dr. Enriquez (Dr. Briseno's partner). Dr. Stevens recommended elevation and no surgical exploration. Due to sepsis and right leg cellulitis, pt was started on iv vanco and zosyn from 06/05/20-06/09/20. Wound culture of the right leg: coag neg staph. IV vanco and zosyn were discontinued. pt was kept on po doxycycline. Dr. Sheth, wound care surgeon, was consulted for wound management via telemedicine. Blood cultures were negative. Routine comprehensive panel had elevated bilirubin 2.5, without c/o nausea, vomiting, abdominal pain, and denied alcohol use. Liver ultrasound: nonobstructive cholelithiasis. Pt was asymptomatic, and resumed back on 2gram sodium diet, and all of his home medications. Hepatitis serology was ordered. Pt complained of slight sob, and due to history of diastolic chf was placed on telemetry. From 06/05-06/07/20, telemetry showed bigemy, 4-10 PVC's daily. His cardiac markers were negative. EKG showed no acute ST depression, and his calcium was supplemented. His potassium and magnesium were normal. On 06/08/20, telemetry showed 34 beats Vtach, pt's blood pressure was 145 mmhg systolic, and he c/o slight dyspnea that lasted about 10-15 seconds that abated without intervention. He denied diaphoresis, chest pain, pressure, or tightness, dizziness, or lightheadedness at the time. Repeat card sotelo were negative, and stat Echo cardiogram was ordered on 06/08/20. EF 20%, and Dr. Briseno, pilates instructor technical consultant, recommended evaluation of coronary arteries with left heart catheterization, transfer to higher level of care for AICD evaluation, and entresto bid. PHYSICAL EXAMINATION ON DISCHARGE: VITAL SIGNS: Please see below. General: Appears his stated age. No respiratory distress, cyanosis . HEENT: no jvd neck supple, full range of motion. No cervical lymphadenopathy, JVD or thyromegaly . Heart: Irregularly irregular S1S2 normal, no carotid bruits . Lungs: Clear to auscultation bilaterally. No no wheezing or rales . Abdomen: BS positive in 4 quadrants, soft, nontender, nondistended, no rebound or guarding, no organomegaly Extremities: Right lower extremity extensive ecchymosis, edema, blisters, bandaged elevated on one pillow LABORATORY DATA: Please see below. IMAGING STUDIES: SEE BELOW EKG:SEE BELOW ECHO: SEE BELOW TIME SPENT ON DISCHARGE: 45minutes. Vital Signs/I&Os Vital Signs Date Time Temp Pulse Resp B/P (MAP) Pulse Ox O2 Delivery O2 Flow Rate FiO2 06/09/20 14:00 97.9 82 15 121/73 (89) 95 Room Air l I&O- Last 24 Hours up to 6 AM 06/09/20 06:00 Intake Total 1770 ml Output Total 925 ml Balance 845 ml Laboratory Data Labs 24H Laboratory Tests 2 06/09/20 07:19: Immature Granulocyte % (Auto) 1.1, Neutrophils (%) (Auto) 69.3H, Lymphocytes (%) (Auto) 12.9L, Monocytes (%) (Auto) 13.3H, Eosinophils (%) (Auto) 3.3H, Basophils (%) (Auto) 0.1, Neutrophils # (Auto) 5.2, Lymphocytes # (Auto) 1.0L, Monocytes # (Auto) 1.0H, Eosinophils # (Auto) 0.3, Basophils # (Auto) 0.0, Nucleated Red Blood Cells % (auto) 0.0, Erythrocyte Sedimentation Rate 80H, Procalcitonin 0.08 06/09/20 07:21: Anion Gap 7L, Glomerular Filtration Rate > 60.0, Calcium Level 8.5L, Magnesium Level 2.5H, Total Creatine Kinase 52, Creatine Kinase MB 1.2, Creatine Kinase MB Relative Index 2.31, Troponin I 0.03, C-Reactive Protein, Quantitative 7.30H, Vancomycin Level Trough 20.0 06/09/20 10:01: Whole Blood Ionized Calcium 4.4L 06/09/20 13:50: Coronavirus (COVID-19)(PCR) NEGATIVE CBC/BMP Laboratory Tests 06/09/20 07:19 06/09/20 07:21 Microbiology Microbiology 06/05/20 Blood Culture - Preliminary, Resulted No Growth after 72 hours. All specime... 06/05/20 Blood Culture - Preliminary, Resulted No Growth after 72 hours. All specime... 06/05/20 Wound Culture - Final, Complete Staphylococcus Sp Coag Neg Discharge Medications Scheduled Atorvastatin Calcium (Atorvastatin Calcium) 80 Mg Tablet, 80 MG PO QHS, (Reported) Carvedilol (Carvedilol) 3.125 Mg Tablet, 3.125 MG PO BID, (Reported) Doxycycline Monohydrate (Doxycycline) 100 Mg Capsule, 100 MG PO BID Sacubitril/Valsartan (Entresto 24 mg-26 mg Tablet) 1 Each Tablet, 1 TAB PO BID Sodium Bicarbonate (Sodium Bicarbonate) 650 Mg Tablet, 650 MG PO BID, (Reported) Spironolactone (Spironolactone) 25 Mg Tablet, 25 MG PO Q2D, (Reported) Scheduled PRN Torsemide (Torsemide) 20 Mg Tablet, 20 MG PO DAILY PRN for FLUID RETENTION, (Reported) Allergies Coded Allergies: No Known Allergies (Verified , 03/03/18) FREDY VAZQUEZ MD Jun 09, 2020 15:43
--- NOTE | 2020-06-09 18:11 | IPN ---
PROGRESS NOTE DATE: 06/08/2020 HISTORY: : Patient is a 69-year-old man who was admitted on June 05 by the hospitalist with extensive swelling and hemorrhage within the right lower extremity following a fall about a week earlier. He had some bullous changes on the anterior anguiano. He was instructed to keep his leg elevated. He reports today that he feels a little better, though the swelling is not significantly reduced. Vital signs show that he had a maximum temperature last evening of 100.7 but has been afebrile so far today. His pulse is in the 70s and 80s, and his blood pressure has been excellent. Intake and output show that yesterday he has 2000 in with 1100 mL recorded out. He has had a bowel movement. He remains on vancomycin and piperacillin/tazobactam. PHYSICAL EXAMINATION: The patient is sitting in a chair with his leg extended on the foot rest. This is not truly elevated but is about the level of his heart. He still has persistent significant edema in the right lower extremity certainly from the knee down, including his foot. There is extensive bruising fairly diffusely throughout the lower extremity. He still has an occlusive dressing on the anterior anguiano in the midportion of the leg. There is no sign of definite cellulitis. Laboratory studies show a white count of 10, hemoglobin 9, hematocrit 30, and a platelet count of 223,000. Chemistry profile shows sodium 142, potassium 4.3, chloride 109, CO2 of 28, BUN 20, creatinine 1.1, and glucose 108. Protein and albumin are 6.0 and 2.6, respectively. IMPRESSION: The patient's leg appears quite stable at this point. I believe he probably needs to do more as far as keeping the leg elevated. PLAN: I spoke with the nurse about his activity level. I advised the nurse that the patient can be up to ambulate with physical therapy. I would encourage this; however, much of his time will need to be spent on his back in bed with the leg elevated to promote drainage. Once the swelling is diminished and whenever he is feeling comfortable enough, he can be up to ambulate with assistance as needed. Continued local wound care to the open blistered areas is certainly appropriate. ZEUS
== END 2020-06-09 20:20 | disposition short-term general hospital (02) | DRG 872 ==
LOC: M ED 09:29 → EDBD 09:29 → M ED INP 12:13 → M MSPAV 13:28
PROVIDERS: ADMIT Internal Medicine; ATTEND General Practice
DX: A41.9 Sepsis, unspecified organism (principal); D68.32 Hemorrhagic disorder due to extrinsic circulating anticoagulants; I48.20 Chronic atrial fibrillation, unspecified; I47.1 Supraventricular tachycardia; L03.115 Cellulitis of right lower limb; D62 Acute posthemorrhagic anemia; I50.20 Unspecified systolic (congestive) heart failure; S80.11XA Contusion of right lower leg, initial encounter; K80.20 Calculus of gallbladder without cholecystitis without obstruction; E83.51 Hypocalcemia; W18.30XA Fall on same level, unspecified, initial encounter; Y92.009 Unspecified place in unspecified non-institutional (private) residence as the place of occurrence of the external cause; Z95.2 Presence of prosthetic heart valve; I25.10 Atherosclerotic heart disease of native coronary artery without angina pectoris; Z95.0 Presence of cardiac pacemaker; I11.0 Hypertensive heart disease with heart failure; E78.5 Hyperlipidemia, unspecified; Z79.899 Other long term (current) drug therapy; Z79.01 Long term (current) use of anticoagulants

== ENCOUNTER → 2021-03-31 | Outpatient (CLI) | payer MEDICARE ==
[~2021-03-31] MED LIST changes: +ATOR80TA59 PO; +CARV3.12 PO; +DOXY-350 PO; +ENTR1TAB PO; -LISI-542 PO; +LISI-898 PO; +SPIR-10 PO; +VITA-158 PO; +VITA100T59 PO; +WARF-23 PO
--- NOTE | 2021-03-31 09:30 | REP ---
INDICATION: FATIGUE. COMPARISON: 06/05/2020 the latest prior and 08/11/2019 the latest prior two view exam TECHNIQUE: PA and lateral FINDINGS: There is global cardiomegaly status quo. A dual chamber bipolar pacemaker has been revised since the last exam. The leads are contiguous. A subtle right upper and lower lobe opacity which is unchanged from the prior two view exam of 08/11/2019. Lung meyers are stable. Pleural angles are sharp. There is no change in the osseous structures. There is thoracic kyphosis with multiple thoracic vertebral body compression deformities of various grades. These are stable from the older examination of 08/11/2019. The interstitial markings are chronically increased and there is evidence of chronic central pulmonary venous engorgement. This appears stable. IMPRESSION: Stable appearing chronic changes as described above. <Electronically signed by Ananth Manuel > 03/31/21 [id number]
[2021-03-31 10:43] LABS: HEMATOCRIT 38.4 % (42.0-52.0); HEMOGLOBIN 12.5 g/dl (13.5-17.5); MEAN CORPUSCULAR HEMOGLOBIN 33.9 pg (27.0-33.0); MEAN CORPUSCULAR HGB CONC 32.6 g/dl (32.0-36.5); MEAN CORPUSCULAR VOLUME 104.1 fl (80.0-96.0); PLATELET COUNT, AUTOMATED 111 10^3/uL (150-450); RED BLOOD COUNT 3.69 10^6/uL (4.30-6.10); WHITE BLOOD COUNT 6.3 10^3/uL (4.0-10.0)
[2021-03-31 10:55] LABS: HEMOGLOBIN A1c 5.6 %
[2021-03-31 11:22] LABS: ALBUMIN 3.4 GM/DL (3.2-5.2); BILIRUBIN,TOTAL 0.9 MG/DL (0.2-1.0); CALCIUM LEVEL 8.6 MG/DL (8.8-10.2); CHOLESTEROL RISK RATIO 2.871 (<5); CREATININE FOR GFR 1.58 MG/DL (0.70-1.30); GLOMERULAR FILTRATION RATE 46.3 (>42); POTASSIUM SERUM 4.6 MEQ/L (3.5-5.1); PROSTATIC SPECIFIC AG MONITOR 1.96 NG/ML (< 4.00); THYROID STIMULATING HORMONE 1.49 uIU/ML (0.358-3.740); TOTAL PROTEIN 6.9 GM/DL (6.4-8.2)
--- NOTE | 2021-04-02 08:22 | ECGEPIP ---
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
== END ==
LOC: M LAB 08:33
PROVIDERS: ATTEND Family Medicine
DX: R53.83 Other fatigue (principal); I10 Essential (primary) hypertension; E03.9 Hypothyroidism, unspecified; Z79.899 Other long term (current) drug therapy

== ENCOUNTER → 2022-03-06 | Outpatient (CLI) | payer MEDICARE ==
[~2022-03-06] MED LIST changes: -LISI-898 PO; +LISI5TAB11 PO; +SIMV-253 PO; -ZOCO20TA PO
[2022-03-06 10:33] LABS: HEMATOCRIT 35.3 % (42.0-52.0); HEMOGLOBIN 11.4 g/dl (13.5-17.5); MEAN CORPUSCULAR HEMOGLOBIN 34.3 pg (27.0-33.0); MEAN CORPUSCULAR HGB CONC 32.3 g/dl (32.0-36.5); MEAN CORPUSCULAR VOLUME 106.3 fl (80.0-96.0); PLATELET COUNT, AUTOMATED 143 10^3/uL (150-450); RED BLOOD COUNT 3.32 10^6/uL (4.30-6.10)
[2022-03-06 10:55] LABS: HEMOGLOBIN A1c 5.8 %
[2022-03-06 11:40] LABS: CALCIUM LEVEL 9.4 MG/DL (8.8-10.2); CREATININE FOR GFR 1.36 MG/DL (0.70-1.30); GLOMERULAR FILTRATION RATE 54.8 (>42)
[2022-03-06 11:41] LABS: ALBUMIN 3.7 GM/DL (3.2-5.2); CHOLESTEROL RISK RATIO 3.078 (<5); PROSTATIC SPECIFIC AG MONITOR 2.3 NG/ML (< 4.00); THYROID STIMULATING HORMONE 1.48 uIU/ML (0.358-3.740); TOTAL PROTEIN 7.4 GM/DL (6.4-8.2)
== END ==
LOC: M LAB 08:45
PROVIDERS: ATTEND Family Medicine
DX: R53.83 Other fatigue (principal); I10 Essential (primary) hypertension; E03.9 Hypothyroidism, unspecified; R97.20 Elevated prostate specific antigen [PSA]; Z79.899 Other long term (current) drug therapy

== ENCOUNTER → 2022-07-31 | Outpatient (CLI) | payer MEDICARE ==
[~2022-07-31] MED LIST changes: -DOXY-350 PO; +DOXY-444 PO
[2022-07-31 09:30] LABS: HEMATOCRIT 37.1 % (42.0-52.0); MEAN CORPUSCULAR HEMOGLOBIN 33.6 pg (27.0-33.0); MEAN CORPUSCULAR HGB CONC 32.3 g/dl (32.0-36.5); MEAN CORPUSCULAR VOLUME 103.9 fl (80.0-96.0); PLATELET COUNT, AUTOMATED 125 10^3/uL (150-450); RED BLOOD COUNT 3.57 10^6/uL (4.30-6.10)
[2022-07-31 10:06] LABS: ALBUMIN 3.8 G/DL (3.2-5.2); BILIRUBIN,TOTAL 1.2 MG/DL (0.3-1.2); CALCIUM LEVEL 9.3 MG/DL (8.3-10.6); CHOLESTEROL RISK RATIO 3.44 (<5); CREATININE FOR GFR 1.45 MG/DL (0.70-1.30); GLOMERULAR FILTRATION RATE 50.9 (>42); HDL CHOLESTEROL 34.3 MG/DL (>40); LDL CHOLESTEROL 67.9 MG/DL (<100); POTASSIUM SERUM 4.4 MMOL/L (3.5-5.1); PROSTATIC SPECIFIC AG MONITOR 1.9 NG/ML (< 4.00); THYROID STIMULATING HORMONE 1.509 uIU/ML (0.55-4.78); TOTAL 25(OH) VITAMIN D 62.4 NG/ML (20.0-100.0); TOTAL PROTEIN 6.8 G/DL (5.7-8.2)
[2022-07-31 11:27] LABS: HEMOGLOBIN A1c 5.5 % (4.0-6.0)
== END ==
LOC: M LAB 08:46
PROVIDERS: ATTEND Family Medicine
DX: D64.9 Anemia, unspecified (principal); E03.9 Hypothyroidism, unspecified; R53.83 Other fatigue; Z79.899 Other long term (current) drug therapy

== ENCOUNTER → 2023-05-01 | Outpatient (CLI) | payer MEDICARE ==
[2023-05-01 10:02] LABS: HEMOGLOBIN 12.3 g/dl (13.5-17.5); MEAN CORPUSCULAR HEMOGLOBIN 33.8 pg (27.0-33.0); MEAN CORPUSCULAR HGB CONC 32.4 g/dl (32.0-36.5); MEAN CORPUSCULAR VOLUME 104.4 fl (80.0-96.0); PLATELET COUNT, AUTOMATED 142 10^3/uL (150-450); RED BLOOD COUNT 3.64 10^6/uL (4.30-6.10); WHITE BLOOD COUNT 7.3 10^3/uL (4.0-10.0)
[2023-05-01 10:25] LABS: HEMOGLOBIN A1c 5.6 % (4.0-6.0)
[2023-05-01 10:34] LABS: ALBUMIN 3.8 G/DL (3.2-5.2); BILIRUBIN,TOTAL 1.1 MG/DL (0.3-1.2); CALCIUM LEVEL 9.5 MG/DL (8.3-10.6); CHOLESTEROL RISK RATIO 3.89 (<5); CREATININE FOR GFR 1.42 MG/DL (0.70-1.30); HDL CHOLESTEROL 34.9 MG/DL (>40); LDL CHOLESTEROL 85.1 MG/DL (<100); NON-HDL-C 101.1 MG/DL; POTASSIUM SERUM 5.1 MMOL/L (3.5-5.1); TOTAL PROTEIN 6.9 G/DL (5.7-8.2)
[2023-05-01 10:35] LABS: THYROID STIMULATING HORMONE 1.852 uIU/ML (0.55-4.78); TOTAL 25(OH) VITAMIN D 60.7 NG/ML (20.0-100.0)
== END ==
LOC: M LAB 09:24
PROVIDERS: ATTEND Family Medicine
DX: I10 Essential (primary) hypertension (principal); D64.9 Anemia, unspecified; R53.83 Other fatigue; E03.9 Hypothyroidism, unspecified; Z79.899 Other long term (current) drug therapy

== ENCOUNTER → 2023-05-01 | Outpatient (CLI) | payer MEDICARE ==
[2023-05-01 10:02] LABS: HEMATOCRIT 37.5 % (42.0-52.0); HEMOGLOBIN 12.2 g/dl (13.5-17.5); MEAN CORPUSCULAR HEMOGLOBIN 33.6 pg (27.0-33.0); MEAN CORPUSCULAR HGB CONC 32.5 g/dl (32.0-36.5); MEAN CORPUSCULAR VOLUME 103.3 fl (80.0-96.0); PLATELET COUNT, AUTOMATED 132 10^3/uL (150-450); RED BLOOD COUNT 3.63 10^6/uL (4.30-6.10); WHITE BLOOD COUNT 7.5 10^3/uL (4.0-10.0)
[2023-05-01 10:31] LABS: CALCIUM LEVEL 9.2 MG/DL (8.3-10.6); CREATININE FOR GFR 1.4 MG/DL (0.70-1.30); GLOMERULAR FILTRATION RATE 52.9 (>42)
== END ==
LOC: M LAB 09:21
PROVIDERS: ATTEND Internal Medicine Cardiovascular Disease
DX: I50.20 Unspecified systolic (congestive) heart failure (principal)

== ENCOUNTER 2023-06-16 11:06 | Inpatient (IN) | payer MEDICARE ==
[2023-06-16] VITALS (15 sets, daily range): BP systolic 77–165; BP diastolic 35–91; TEMP 97.7–101.2
[~2023-06-16] VITALS: Ht 167.6 cm; Wt 80.7 kg
[2023-06-16] MEDS ORDERED: NS 1,000 ML IV SCH (11:25)
[2023-06-16 11:44] LABS: VENOUS BASE EXCESS -15.4 (-2.0-2.0); VENOUS HCO3 12.2 MMOL/L (23.0-27.0); VENOUS O2 SATURATION 53.8 % (60.0-80.0); VENOUS PARTIAL PRESSURE CO2 34.7 mmHg (38.0-50.0); VENOUS PARTIAL PRESSURE O2 36.8 mmHg (30.0-50.0); VENOUS PH 7.164 UNITS (7.330-7.430); VENOUS STANDARD HCO3 12.1 MMOL/L; VENOUS TOTAL CO2 13.3 MMOL/L (24.0-28.0)
[2023-06-16 11:54] LABS: BASO % 0.3 % (0.0-1.0); EOS % 0.1 % (0.0-3.0); HEMATOCRIT 38.9 % (42.0-52.0); HEMOGLOBIN 12.3 g/dl (13.5-17.5); MEAN CORPUSCULAR HEMOGLOBIN 33.4 pg (27.0-33.0); MEAN CORPUSCULAR HGB CONC 31.6 g/dl (32.0-36.5); MEAN CORPUSCULAR VOLUME 105.7 fl (80.0-96.0); MONO # 1.4 10^3/uL (0.0-0.8); MONO % 12.4 % (2.0-8.0); NEUTROPHILS # 8.8 10^3/uL (1.5-8.5); NEUTROPHILS % 76.9 % (36.0-66.0); PLATELET COUNT, AUTOMATED 108 10^3/uL (150-450); RED BLOOD COUNT 3.68 10^6/uL (4.30-6.10); WHITE BLOOD COUNT 11.5 10^3/uL (4.0-10.0)
[2023-06-16 12:12] LABS: INR 2.33; PROTHROMBIN TIME 24.7 SECONDS (12.5-14.5)
[2023-06-16 12:14] LABS: OSMOLALITY SERUM 314 MOSM/KG (280-301)
[2023-06-16 12:15] LABS: ETHYL ALCOHOL (ETHANOL) < 0.003 % (0.000-0.010)
[2023-06-16] MEDS ORDERED: cefTRIAXone SOD 2 GM in D5W MINI-BAG PLUS 50 ML IV ONE (12:15)
[2023-06-16] MEDS ORDERED: AZITHROMYCIN INJ 500 MG, VIAL MATE ADAPTER 1 EACH in D5W 250 ML IV ONE (12:15)
[2023-06-16 12:17] LABS: SALICYLATE LEVEL 5.1 MG/DL (<30)
[2023-06-16 12:19] LABS: THYROID STIMULATING HORMONE 3.222 uIU/ML (0.55-4.78)
[2023-06-16] MEDS ORDERED: NS 2,390 ML in IV 1 EA IV ONE (12:20)
[2023-06-16 12:32] LABS: ALBUMIN 3.6 G/DL (3.2-5.2); ALKALINE PHOSPHATASE 74 U/L (46-116); BILIRUBIN,DIRECT 1.6 MG/DL (<0.4); BILIRUBIN,TOTAL 3.3 MG/DL (0.3-1.2); BLOOD UREA NITROGEN 55 MG/DL (9-23); CALCIUM LEVEL 8.5 MG/DL (8.3-10.6); CARBON DIOXIDE LEVEL 16 MMOL/L (20-31); CHLORIDE LEVEL 106 MMOL/L (98-107); CREATININE FOR GFR 3.86 MG/DL (0.70-1.30); GLOMERULAR FILTRATION RATE 16.4 (>42); GLUCOSE, FASTING 164 MG/DL (74-106); POTASSIUM SERUM 5.2 MMOL/L (3.5-5.1); SODIUM LEVEL 140 MMOL/L (136-145)
[2023-06-16 12:34] LABS: ALT/SGPT 3096 U/L (7.0-40); AST/SGOT 3364 U/L (<34)
[2023-06-16 12:53] LABS: ABG BASE EXCESS -13.2 (-2.0-2.0); ABG HCO3 10.1 MMOL/L (22.0-26.0); ABG O2 SATURATION 97.1 % (95.0-99.0); ABG PARTIAL PRESSURE O2 101.2 mmHg (75.0-100.0); ABG STANDARD HCO3 14.3 MMOL/L. (22.0-26.0); ABG TOTAL CO2 10.6 MMOL/L (23.0-31.0); ABG pH (ARTERIAL) 7.353 UNITS (7.350-7.450)
[2023-06-16 12:54] LABS: ABG PARTIAL PRESSURE CO2 18.5 mmHg (35.0-45.0)
[2023-06-16] MEDS: NOREPINEPHRINE 4MG IN D5 250ML 4 MG in IV 1 EA IV SCH ×4 (13:50→20:30)
[2023-06-16] MEDS ORDERED: MED REC IN PROGRESS XX SCH (14:20)
[2023-06-16] MEDS ORDERED: MED REC CURRENTLY UNOBTAINABLE XX SCH (14:50)
[2023-06-16] MEDS: IPRATROPIUM 0.5MG/ALBUTEROL 2.5MG INH SOL UD 3ML (DUONEB) NEB SCH ×2 (15:18→19:46)
[2023-06-16] MEDS ORDERED: PIPERACILLIN/TAZOBACTAM SOD 3.375 GM in D5W MINI-BAG PLUS 50 ML IV SCH (16:05)
[2023-06-16] MEDS: MILRINONE/DEXTROSE 20 MG in IV 1 EA IV SCH ×2 (16:35→16:41)
[2023-06-16] MEDS ORDERED: FAMOTIDINE IV BAG 20 MG in IV 1 EA IV SCH (17:00)
[2023-06-16] MEDS ORDERED: NS 500 ML IV ONE ×2 (17:40→18:05)
[2023-06-16] MEDS: PIPERACILLIN/TAZOBACTAM SOD 4.5 GM in D5W MINI-BAG PLUS 50 ML IV SCH (17:43)
[2023-06-16] MEDS ORDERED: ALBUTEROL SULFATE 2.5MG/0.5ML INH NEB SOLN NEB PRN (18:05)
[2023-06-16 18:16] LABS: CENTRAL VEN BASE EXCESS -17.2
[2023-06-16 18:27] LABS: BASO % 0.2 % (0.0-1.0); EOS % 0.1 % (0.0-3.0); HEMATOCRIT 32.2 % (42.0-52.0); LYMPH # 0.9 10^3/uL (1.5-5.0); LYMPH % 7.6 % (24.0-44.0); MEAN CORPUSCULAR HEMOGLOBIN 34.6 pg (27.0-33.0); MEAN CORPUSCULAR VOLUME 108.1 fl (80.0-96.0); MONO # 1.2 10^3/uL (0.0-0.8); NEUTROPHILS # 9.6 10^3/uL (1.5-8.5); NEUTROPHILS % 79.7 % (36.0-66.0); RED BLOOD COUNT 2.98 10^6/uL (4.30-6.10)
[2023-06-16 18:32] LABS: HEMOGLOBIN 10.3 g/dl (13.5-17.5)
[2023-06-16 18:33] LABS: PLATELET COUNT, AUTOMATED 82 10^3/uL (150-450)
[2023-06-16 18:41] LABS: INR 3.03; PROTHROMBIN TIME 30.3 SECONDS (12.5-14.5)
[2023-06-16] MEDS ORDERED: ENTR1TAB PO (18:53)
[2023-06-16] MEDS ORDERED: METO1TAB7 PO (18:53)
[2023-06-16] MEDS ORDERED: HOME MED LIST COMPLETE! XX SCH (18:55)
[2023-06-16 19:16] LABS: ALBUMIN 2.8 G/DL (3.2-5.2); BILIRUBIN,TOTAL 2.4 MG/DL (0.3-1.2); CALCIUM LEVEL 6.9 MG/DL (8.3-10.6); CREATININE FOR GFR 4.49 MG/DL (0.70-1.30); GLOMERULAR FILTRATION RATE 13.8 (>42); MAGNESIUM LEVEL 2.6 MG/DL (1.8-2.4); POTASSIUM SERUM 5.5 MMOL/L (3.5-5.1); TOTAL PROTEIN 5.6 G/DL (5.7-8.2)
[2023-06-16] MEDS ORDERED: SODIUM BICARBONATE 8.4% INJ 50ML SYRINGE IV STA ×2 (19:57→21:28)
[2023-06-16] MEDS ORDERED: HYDROCORTISONE 100MG/2ML VIAL IV ONE (20:00)
[2023-06-16 20:05] LABS: ABG BASE EXCESS -13.4 (-2.0-2.0); ABG HCO3 11.9 MMOL/L (22.0-26.0); ABG PARTIAL PRESSURE CO2 26.2 mmHg (35.0-45.0); ABG PARTIAL PRESSURE O2 101.8 mmHg (75.0-100.0); ABG TOTAL CO2 12.7 MMOL/L (23.0-31.0); ABG pH (ARTERIAL) 7.274 UNITS (7.350-7.450)
[2023-06-16] MEDS: PANTOPRAZOLE 40MG VIAL IV SCH (20:26)
[2023-06-16] MEDS ORDERED: CALCIUM GLUCONATE 1,000 MG in D5W MINI-BAG PLUS 100 ML IV ONE (21:00)
[2023-06-16] MEDS ORDERED: FAMOTIDINE 20MG/2ML VIAL IV SCH (22:00)
[2023-06-17] VITALS (66 sets, daily range): BP systolic 88–156; BP diastolic 50–100; TEMP 97.5–98.8; O2SAT 85–100
[2023-06-17] MEDS ORDERED: SODIUM BICARBONATE 8.4% INJ 50ML SYRINGE IV STA (00:32)
[2023-06-17] MEDS ORDERED: CALCIUM GLUCONATE 1,000 MG in D5W MINI-BAG PLUS 100 ML IV ONE (01:00)
[2023-06-17 01:26] LABS: CALCIUM LEVEL 6.9 MG/DL (8.3-10.6); CREATININE FOR GFR 4.81 MG/DL (0.70-1.30); GLOMERULAR FILTRATION RATE 12.7 (>42); MAGNESIUM LEVEL 2.5 MG/DL (1.8-2.4)
[2023-06-17] MEDS: NOREPINEPHRINE 4MG IN D5 250ML 4 MG in IV 1 EA IV SCH ×8 (03:10→22:28)
[2023-06-17] MEDS: HYDROCORTISONE 100MG/2ML VIAL IV SCH ×3 (04:45→19:43)
[2023-06-17 04:46] LABS: BASO % 0.1 % (0.0-1.0); HEMATOCRIT 28.3 % (42.0-52.0); HEMOGLOBIN 9.7 g/dl (13.5-17.5); LYMPH # 0.8 10^3/uL (1.5-5.0); LYMPH % 5.4 % (24.0-44.0); MEAN CORPUSCULAR HEMOGLOBIN 34.8 pg (27.0-33.0); MEAN CORPUSCULAR HGB CONC 34.3 g/dl (32.0-36.5); MEAN CORPUSCULAR VOLUME 101.4 fl (80.0-96.0); MONO # 1.3 10^3/uL (0.0-0.8); MONO % 8.4 % (2.0-8.0); NEUTROPHILS # 12.6 10^3/uL (1.5-8.5); NEUTROPHILS % 84.5 % (36.0-66.0); RED BLOOD COUNT 2.79 10^6/uL (4.30-6.10); WHITE BLOOD COUNT 14.9 10^3/uL (4.0-10.0)
[2023-06-17 04:47] LABS: PLATELET COUNT, AUTOMATED 78 10^3/uL (150-450)
[2023-06-17 05:02] LABS: INR 2.96; PROTHROMBIN TIME 29.7 SECONDS (12.5-14.5)
[2023-06-17 05:21] LABS: CK-MB VALUE MASS 71.2 NG/ML (<3.6)
[2023-06-17] MEDS: PIPERACILLIN/TAZOBACTAM SOD 4.5 GM in D5W MINI-BAG PLUS 50 ML IV SCH ×3 (06:03→22:25)
[2023-06-17 06:08] LABS: ALBUMIN 2.8 G/DL (3.2-5.2); ALKALINE PHOSPHATASE 61 U/L (46-116); ALT/SGPT 5560 U/L (7.0-40); AST/SGOT > 6000 U/L (<34); BILIRUBIN,TOTAL 2.2 MG/DL (0.3-1.2); BLOOD UREA NITROGEN 70 MG/DL (9-23); CALCIUM LEVEL 7.3 MG/DL (8.3-10.6); CARBON DIOXIDE LEVEL 21 MMOL/L (20-31); CHLORIDE LEVEL 108 MMOL/L (98-107); CPK CREATINE PHOSPHOKINASE 16423 U/L (46-171); CREATININE FOR GFR 5.16 MG/DL (0.70-1.30); GLOMERULAR FILTRATION RATE 11.7 (>42); GLUCOSE, FASTING 127 MG/DL (74-106); MB/CK RELATIVE INDEX 0.43 (< OR =4); POTASSIUM SERUM 3.8 MMOL/L (3.5-5.1); SODIUM LEVEL 145 MMOL/L (136-145); TOTAL PROTEIN 5.4 G/DL (5.7-8.2)
[2023-06-17] MEDS: IPRATROPIUM 0.5MG/ALBUTEROL 2.5MG INH SOL UD 3ML (DUONEB) NEB SCH ×4 (07:35→19:35)
[2023-06-17 07:36] LABS: CLOSTRIDIUM DIFFICILE PCR NEGATIVE (NEGATIVE)
[2023-06-17] MEDS: AZITHROMYCIN 250MG TABLET PO SCH (08:08)
[2023-06-17] MEDS: PANTOPRAZOLE 40MG VIAL IV SCH ×2 (08:08→20:31)
[2023-06-17] MEDS ORDERED: SODIUM CHLORIDE 0.9% INJ 10 ML SYR IV PRN (10:55)
[2023-06-17] MEDS ORDERED: HEPARIN 1,000UNITS/ML 10ML VIAL (FOR RADIOLOGY & DIALYSIS ONLY) IV PRN (10:55)
[2023-06-17] MEDS ORDERED: cefTRIAXone SOD 1 GM in D5W MINI-BAG PLUS 50 ML IV SCH (13:00)
[2023-06-17 18:12] LABS: IONIZED CALCIUM 3.8 MG/DL (4.5-5.3)
[2023-06-17 18:22] LABS: HEMATOCRIT 30.4 % (42.0-52.0); HEMOGLOBIN 10.3 g/dl (13.5-17.5); MEAN CORPUSCULAR HEMOGLOBIN 34.7 pg (27.0-33.0); MEAN CORPUSCULAR HGB CONC 33.9 g/dl (32.0-36.5); MEAN CORPUSCULAR VOLUME 102.4 fl (80.0-96.0); PLATELET COUNT, AUTOMATED 106 10^3/uL (150-450); RED BLOOD COUNT 2.97 10^6/uL (4.30-6.10); WHITE BLOOD COUNT 18.9 10^3/uL (4.0-10.0)
[2023-06-17 18:53] LABS: CALCIUM LEVEL 7.2 MG/DL (8.3-10.6); CREATININE FOR GFR 4.18 MG/DL (0.70-1.30); MAGNESIUM LEVEL 2.4 MG/DL (1.8-2.4); POTASSIUM SERUM 4.2 MMOL/L (3.5-5.1)
[2023-06-17] MEDS: CALCIUM GLUCONATE 1,000 MG in NS MINI-BAG PLUS 100 ML IV SCH ×2 (19:40→20:31)
[2023-06-17] MEDS: LEVALBUTEROL 1.25MG 0.5ML CONCENTRATE NEB INH SCH (23:02)
[2023-06-18] VITALS (62 sets, daily range): BP systolic 75–144; BP diastolic 41–98; TEMP 96.4–98.3; O2SAT 75–100
[2023-06-18 00:09] LABS: IONIZED CALCIUM 3.8 MG/DL (4.5-5.3)
[2023-06-18] MEDS: CALCIUM GLUCONATE 1,000 MG in D5W MINI-BAG PLUS 100 ML IV SCH ×2 (00:24→00:59)
[2023-06-18 00:26] LABS: HEMATOCRIT 33.4 % (42.0-52.0); HEMOGLOBIN 10.9 g/dl (13.5-17.5); MEAN CORPUSCULAR HEMOGLOBIN 33.5 pg (27.0-33.0); MEAN CORPUSCULAR HGB CONC 32.6 g/dl (32.0-36.5); MEAN CORPUSCULAR VOLUME 102.8 fl (80.0-96.0); PLATELET COUNT, AUTOMATED 119 10^3/uL (150-450); RED BLOOD COUNT 3.25 10^6/uL (4.30-6.10)
[2023-06-18 00:38] LABS: INR 2.25
[2023-06-18 00:39] LABS: CREATININE FOR GFR 3.71 MG/DL (0.70-1.30); GLOMERULAR FILTRATION RATE 17.2 (>42); MAGNESIUM LEVEL 2.4 MG/DL (1.8-2.4); PARTIAL THROMBOPLASTIN TIME 35.1 SECONDS (24.8-34.2); PHOSPHORUS LEVEL 5.8 MG/DL (2.4-5.1); POTASSIUM SERUM 4.3 MMOL/L (3.5-5.1)
[2023-06-18] MEDS: LEVALBUTEROL 1.25MG 0.5ML CONCENTRATE NEB INH SCH ×6 (03:32→23:25)
[2023-06-18] MEDS: HYDROCORTISONE 100MG/2ML VIAL IV SCH (04:19)
[2023-06-18 05:17] LABS: HEMATOCRIT 32.2 % (42.0-52.0); HEMOGLOBIN 10.9 g/dl (13.5-17.5); MEAN CORPUSCULAR HEMOGLOBIN 34.4 pg (27.0-33.0); MEAN CORPUSCULAR HGB CONC 33.9 g/dl (32.0-36.5); MEAN CORPUSCULAR VOLUME 101.6 fl (80.0-96.0); PLATELET COUNT, AUTOMATED 141 10^3/uL (150-450); RED BLOOD COUNT 3.17 10^6/uL (4.30-6.10); WHITE BLOOD COUNT 19.6 10^3/uL (4.0-10.0)
[2023-06-18 05:17] LABS: HEMATOCRIT 32.6 % (42.0-52.0); HEMOGLOBIN 10.8 g/dl (13.5-17.5); MEAN CORPUSCULAR HEMOGLOBIN 33.8 pg (27.0-33.0); MEAN CORPUSCULAR HGB CONC 33.1 g/dl (32.0-36.5); MEAN CORPUSCULAR VOLUME 101.9 fl (80.0-96.0); PLATELET COUNT, AUTOMATED 124 10^3/uL (150-450); WHITE BLOOD COUNT 19.2 10^3/uL (4.0-10.0)
[2023-06-18 05:26] LABS: INR 2.1; PROTHROMBIN TIME 22.9 SECONDS (12.5-14.5)
[2023-06-18 05:27] LABS: PARTIAL THROMBOPLASTIN TIME 33.4 SECONDS (24.8-34.2)
[2023-06-18] MEDS ORDERED: CALCIUM GLUCONATE 1,000 MG in D5W MINI-BAG PLUS 100 ML IV ONE ×2 (05:30→06:30)
[2023-06-18 05:39] LABS: CK-MB VALUE MASS 85.9 NG/ML (<3.6)
[2023-06-18 05:43] LABS: CALCIUM LEVEL 8.1 MG/DL (8.3-10.6); CREATININE FOR GFR 3.12 MG/DL (0.70-1.30); MAGNESIUM LEVEL 2.3 MG/DL (1.8-2.4); PHOSPHORUS LEVEL 5.5 MG/DL (2.4-5.1); POTASSIUM SERUM 4.3 MMOL/L (3.5-5.1)
[2023-06-18] MEDS: NOREPINEPHRINE 4MG IN D5 250ML 4 MG in IV 1 EA IV SCH ×8 (05:50→21:49)
[2023-06-18 05:56] LABS: ATYPICAL LYMPH 2 % (0-5); LYMPHOCYTES 3 % (16-44); MONOCYTES 3 % (0-5); NEUTROPHILS 92 % (28-66)
[2023-06-18 05:57] LABS: ANISOCYTOSIS 2+
[2023-06-18 05:58] LABS: PLATELET ESTIMATE NORMAL (NORMAL)
[2023-06-18] MEDS: PIPERACILLIN/TAZOBACTAM SOD 4.5 GM in D5W MINI-BAG PLUS 50 ML IV SCH ×2 (06:03→13:16)
[2023-06-18 06:10] LABS: ALBUMIN 3.2 G/DL (3.2-5.2); BILIRUBIN,TOTAL 3.2 MG/DL (0.3-1.2); CALCIUM LEVEL 8.2 MG/DL (8.3-10.6); CREATININE FOR GFR 3.14 MG/DL (0.70-1.30); GLOMERULAR FILTRATION RATE 20.8 (>42); MB/CK RELATIVE INDEX 0.47 (< OR =4); POTASSIUM SERUM 4.3 MMOL/L (3.5-5.1)
[2023-06-18] MEDS: IPRATROPIUM 0.5MG/ALBUTEROL 2.5MG INH SOL UD 3ML (DUONEB) NEB SCH ×4 (07:10→19:19)
[2023-06-18] MEDS: AZITHROMYCIN 250MG TABLET PO SCH (09:49)
[2023-06-18] MEDS: PANTOPRAZOLE 40MG VIAL IV SCH ×2 (09:50→21:02)
[2023-06-18] MEDS ORDERED: SIMETHICONE 80MG CHEW TAB PO PRN (10:45)
[2023-06-18 12:08] LABS: IONIZED CALCIUM 3.9 MG/DL (4.5-5.3)
[2023-06-18 12:28] LABS: HEMATOCRIT 32.9 % (42.0-52.0); HEMOGLOBIN 10.6 g/dl (13.5-17.5); MEAN CORPUSCULAR HEMOGLOBIN 34.2 pg (27.0-33.0); MEAN CORPUSCULAR HGB CONC 32.2 g/dl (32.0-36.5); MEAN CORPUSCULAR VOLUME 106.1 fl (80.0-96.0); PLATELET COUNT, AUTOMATED 143 10^3/uL (150-450); WHITE BLOOD COUNT 19.6 10^3/uL (4.0-10.0)
[2023-06-18 12:50] LABS: CALCIUM LEVEL 8.1 MG/DL (8.3-10.6); CREATININE FOR GFR 2.52 MG/DL (0.70-1.30); GLOMERULAR FILTRATION RATE 26.8 (>42); MAGNESIUM LEVEL 2.3 MG/DL (1.8-2.4); PHOSPHORUS LEVEL 5.6 MG/DL (2.4-5.1); POTASSIUM SERUM 4.8 MMOL/L (3.5-5.1)
[2023-06-18 13:38] LABS: INR 2.15; PARTIAL THROMBOPLASTIN TIME 31.3 SECONDS (24.8-34.2); PROTHROMBIN TIME 23.2 SECONDS (12.5-14.5)
[2023-06-18 13:38] LABS: INR 2.18; PARTIAL THROMBOPLASTIN TIME 30.8 SECONDS (24.8-34.2); PROTHROMBIN TIME 23.5 SECONDS (12.5-14.5)
[2023-06-18] MEDS: CALCIUM GLUCONATE 1,000 MG, VIAL MATE ADAPTER 1 EACH in NS 100 ML IV SCH ×2 (13:38→14:26)
[2023-06-18 18:35] LABS: IONIZED CALCIUM 4.4 MG/DL (4.5-5.3)
[2023-06-18] MEDS ORDERED: CALCIUM GLUCONATE 1,000 MG, VIAL MATE ADAPTER 1 EACH in NS 100 ML IV ONE (18:40)
[2023-06-18 18:50] LABS: HEMATOCRIT 30.6 % (42.0-52.0); HEMOGLOBIN 10.2 g/dl (13.5-17.5); MEAN CORPUSCULAR HEMOGLOBIN 34.1 pg (27.0-33.0); MEAN CORPUSCULAR HGB CONC 33.3 g/dl (32.0-36.5); MEAN CORPUSCULAR VOLUME 102.3 fl (80.0-96.0); PLATELET COUNT, AUTOMATED 134 10^3/uL (150-450); RED BLOOD COUNT 2.99 10^6/uL (4.30-6.10); WHITE BLOOD COUNT 18.6 10^3/uL (4.0-10.0)
[2023-06-18 19:15] LABS: CALCIUM LEVEL 8.5 MG/DL (8.3-10.6); CREATININE FOR GFR 2.22 MG/DL (0.70-1.30); GLOMERULAR FILTRATION RATE 31.1 (>42); MAGNESIUM LEVEL 2.5 MG/DL (1.8-2.4); PHOSPHORUS LEVEL 5.3 MG/DL (2.4-5.1); POTASSIUM SERUM 4.3 MMOL/L (3.5-5.1)
[2023-06-18] MEDS ORDERED: HALOPERIDOL 5MG/ML 1ML VIAL IV ONE (19:30)
[2023-06-18] MEDS ORDERED: LORazepam 2 MG/ML 1ML VIAL IV STA (20:41)
[2023-06-18] MEDS ORDERED: dexmedeTOMidine 200 MCG in IV 1 EA IV SCH (20:45)
[2023-06-18] MEDS ORDERED: flumazeniL 0.5MG/5ML VIAL As Ordered ONE (21:39)
[2023-06-18] MEDS ORDERED: EPINEPHrine 1MG/10ML SYRINGE 1.5IN ONE (21:41)
[2023-06-18] MEDS ORDERED: AMIODARONE 150MG/3ML VIAL ONE (21:41)
[2023-06-18] MEDS ORDERED: SODIUM BICARBONATE 8.4% INJ 50ML SYRINGE ONE (21:41)
[2023-06-18] MEDS ORDERED: CALCIUM CHLORIDE 10% 1 GM/10 ML SYR ONE (21:41)
[2023-06-18] MEDS ORDERED: MAGNESIUM SULFATE 1GM/2ML (8MEQ/2ML) VIAL ONE (21:41)
[2023-06-18] MEDS ORDERED: AMIODARONE HCL 150 MG/100 ML PREMIXED BAG (NEXTERONE) ONE (21:41)
[2023-06-18] MEDS: MIDAZOLAM 100MG/100ML-0.9%NACL 100 MG in IV 1 EA IV SCH (22:30)
[2023-06-18 22:42] LABS: BASO # 0.1 10^3/uL (0.0-0.2); BASO % 0.6 % (0.0-1.0); EOS % 0.1 % (0.0-3.0); HEMATOCRIT 27.8 % (42.0-52.0); LYMPH # 2.4 10^3/uL (1.5-5.0); LYMPH % 11.9 % (24.0-44.0); MEAN CORPUSCULAR HEMOGLOBIN 34.1 pg (27.0-33.0); MEAN CORPUSCULAR HGB CONC 32.4 g/dl (32.0-36.5); MEAN CORPUSCULAR VOLUME 105.3 fl (80.0-96.0); MONO # 1.5 10^3/uL (0.0-0.8); MONO % 7.7 % (2.0-8.0); NEUTROPHILS # 14.2 10^3/uL (1.5-8.5); NEUTROPHILS % 71.4 % (36.0-66.0); PLATELET COUNT, AUTOMATED 102 10^3/uL (150-450); RED BLOOD COUNT 2.64 10^6/uL (4.30-6.10); WHITE BLOOD COUNT 19.9 10^3/uL (4.0-10.0)
[2023-06-18] MEDS: VASOPRESSIN INJ 20 UNITS in NS 499 ML IV SCH ×2 (23:15→23:29)
[2023-06-18] MEDS: AMIODARONE HCL 360 MG in IV 1 EA IV SCH (23:18)
[2023-06-18 23:26] LABS: ABG BASE EXCESS -7.3 (-2.0-2.0); ABG HCO3 17.9 MMOL/L (22.0-26.0); ABG O2 SATURATION 99.1 % (95.0-99.0); ABG PARTIAL PRESSURE CO2 34.7 mmHg (35.0-45.0); ABG PARTIAL PRESSURE O2 239.3 mmHg (75.0-100.0); ABG STANDARD HCO3 18.6 MMOL/L. (22.0-26.0); ABG TOTAL CO2 18.9 MMOL/L (23.0-31.0)
[2023-06-18 23:31] LABS: ALBUMIN 2.7 G/DL (3.2-5.2); CALCIUM LEVEL 11.1 MG/DL (8.3-10.6); CREATININE FOR GFR 2.06 MG/DL (0.70-1.30); GLOMERULAR FILTRATION RATE 33.9 (>42); MAGNESIUM LEVEL 6.3 MG/DL (1.8-2.4); POTASSIUM SERUM 4.8 MMOL/L (3.5-5.1); TOTAL PROTEIN 5.1 G/DL (5.7-8.2)
[2023-06-19] VITALS (77 sets, daily range): BP systolic 98–177; BP diastolic 40–78; TEMP 97.6–100.8; O2SAT 93–100
[2023-06-19] MEDS ORDERED: LORazepam 2 MG/ML 1ML VIAL IV STA (00:11)
[2023-06-19 00:27] LABS: IONIZED CALCIUM 4.5 MG/DL (4.5-5.3)
[2023-06-19 00:28] LABS: HEMOGLOBIN 10.1 g/dl (13.5-17.5); MEAN CORPUSCULAR HEMOGLOBIN 33.8 pg (27.0-33.0); MEAN CORPUSCULAR HGB CONC 32.6 g/dl (32.0-36.5); MEAN CORPUSCULAR VOLUME 103.7 fl (80.0-96.0); PLATELET COUNT, AUTOMATED 134 10^3/uL (150-450); RED BLOOD COUNT 2.99 10^6/uL (4.30-6.10); WHITE BLOOD COUNT 22.9 10^3/uL (4.0-10.0)
[2023-06-19 01:00] LABS: CREATININE FOR GFR 2.33 MG/DL (0.70-1.30); GLOMERULAR FILTRATION RATE 29.4 (>42); PHOSPHORUS LEVEL 6.8 MG/DL (2.4-5.1); POTASSIUM SERUM 4.4 MMOL/L (3.5-5.1)
[2023-06-19] MEDS: PIPERACILLIN/TAZOBACTAM SOD 4.5 GM in D5W MINI-BAG PLUS 50 ML IV SCH ×3 (01:01→13:45)
[2023-06-19] MEDS: AMIODARONE HCL 360 MG in IV 1 EA IV SCH (01:01)
[2023-06-19] MEDS: NOREPINEPHRINE 4MG IN D5 250ML 4 MG in IV 1 EA IV SCH ×12 (01:06→13:40)
[2023-06-19] MEDS: LEVALBUTEROL 1.25MG 0.5ML CONCENTRATE NEB INH SCH ×4 (03:13→15:07)
[2023-06-19 04:50] LABS: IONIZED CALCIUM 4.2 MG/DL (4.5-5.3)
[2023-06-19 05:00] LABS: HEMATOCRIT 27.1 % (42.0-52.0); HEMOGLOBIN 9.2 g/dl (13.5-17.5); MEAN CORPUSCULAR HEMOGLOBIN 34.1 pg (27.0-33.0); MEAN CORPUSCULAR HGB CONC 33.9 g/dl (32.0-36.5); MEAN CORPUSCULAR VOLUME 100.4 fl (80.0-96.0); PLATELET COUNT, AUTOMATED 147 10^3/uL (150-450); WHITE BLOOD COUNT 23.1 10^3/uL (4.0-10.0)
[2023-06-19] MEDS ORDERED: AMIODARONE HCL 360 MG in IV 1 EA IV SCH (05:00)
[2023-06-19 05:19] LABS: CK-MB VALUE MASS 64.9 NG/ML (<3.6)
[2023-06-19 05:24] LABS: MAGNESIUM LEVEL 2.6 MG/DL (1.8-2.4)
[2023-06-19 05:31] LABS: ATYPICAL LYMPH 1 % (0-5); LYMPHOCYTES 5 % (16-44); MONOCYTES 5 % (0-5); NEUTROPHILS 83 % (28-66); PLATELET ESTIMATE NORMAL (NORMAL)
[2023-06-19 05:32] LABS: MICROCYTOSIS 2+; POLYCHROMASIA 1+
[2023-06-19 05:34] LABS: BURR CELLS 1+; OVALOCYTES 1+; TOXIC GRANULATION 1+; TOXIC VACUOLATION 1+
[2023-06-19 05:44] LABS: ALBUMIN 2.6 G/DL (3.2-5.2); BILIRUBIN,TOTAL 3.3 MG/DL (0.3-1.2); CALCIUM LEVEL 8.1 MG/DL (8.3-10.6); CREATININE FOR GFR 2.76 MG/DL (0.70-1.30); GLOMERULAR FILTRATION RATE 24.2 (>42); MB/CK RELATIVE INDEX 0.63 (< OR =4); TOTAL PROTEIN 5.1 G/DL (5.7-8.2)
[2023-06-19 06:11] LABS: ABG BASE EXCESS -4.9 (-2.0-2.0); ABG HCO3 18.8 MMOL/L (22.0-26.0); ABG O2 SATURATION 99.3 % (95.0-99.0); ABG PARTIAL PRESSURE CO2 30.1 mmHg (35.0-45.0); ABG STANDARD HCO3 20.4 MMOL/L. (22.0-26.0); ABG TOTAL CO2 19.7 MMOL/L (23.0-31.0); ABG pH (ARTERIAL) 7.413 UNITS (7.350-7.450)
[2023-06-19] MEDS: IPRATROPIUM 0.5MG/ALBUTEROL 2.5MG INH SOL UD 3ML (DUONEB) NEB SCH ×3 (07:43→15:07)
[2023-06-19] MEDS: VASOPRESSIN INJ 20 UNITS in NS 499 ML IV SCH ×2 (08:18→15:29)
[2023-06-19] MEDS: PANTOPRAZOLE 40MG VIAL IV SCH (08:22)
[2023-06-19] MEDS: AZITHROMYCIN 250MG TABLET PO SCH (08:24)
[2023-06-19] MEDS: MIDAZOLAM 100MG/100ML-0.9%NACL 100 MG in IV 1 EA IV SCH (10:46)
[2023-06-19 12:09] LABS: HEMATOCRIT 26.8 % (42.0-52.0); HEMOGLOBIN 8.9 g/dl (13.5-17.5); MEAN CORPUSCULAR HEMOGLOBIN 33.7 pg (27.0-33.0); MEAN CORPUSCULAR HGB CONC 33.2 g/dl (32.0-36.5); MEAN CORPUSCULAR VOLUME 101.5 fl (80.0-96.0); PLATELET COUNT, AUTOMATED 127 10^3/uL (150-450); RED BLOOD COUNT 2.64 10^6/uL (4.30-6.10); WHITE BLOOD COUNT 21.7 10^3/uL (4.0-10.0)
[2023-06-19] MEDS ORDERED: LIDOCAINE 2% INJ 100 MG/5 ML SYRINGE IV STA (12:11)
[2023-06-19 12:35] LABS: CALCIUM LEVEL 7.9 MG/DL (8.3-10.6); CREATININE FOR GFR 3.44 MG/DL (0.70-1.30); GLOMERULAR FILTRATION RATE 18.7 (>42); MAGNESIUM LEVEL 2.7 MG/DL (1.8-2.4); PHOSPHORUS LEVEL 3.4 MG/DL (2.4-5.1); POTASSIUM SERUM 3.9 MMOL/L (3.5-5.1)
[2023-06-19] MEDS ORDERED: MORPHINE 2 MG/ML 1ML VIAL IV PRN (17:10)
[2023-06-19] MEDS ORDERED: SCOPOLAMINE 1MG TRANSDERMAL PATCH TOP PRN (17:10)
[2023-06-20] MEDS ORDERED: PIPERACILLIN/TAZOBACTAM SOD 4.5 GM in D5W MINI-BAG PLUS 50 ML IV SCH (02:00)
== END 2023-06-19 19:28 | disposition expired | DRG 871 ==
LOC: M ED 11:06 → EDBD 11:06 → M ED INP 13:47 → M ICU 16:11
PROVIDERS: ADMIT Internal Medicine Critical Care Medicine; ATTEND Internal Medicine Critical Care Medicine
PROC: 02HV33Z Insertion of Infusion Device into Superior Vena Cava, Percutaneous Approach (ICD-10-PCS; principal; 2023-06-17)
PROC: 5A1945Z Respiratory Ventilation, 24-96 Consecutive Hours (ICD-10-PCS; 2023-06-18)
DX: A41.9 Sepsis, unspecified organism (principal); K72.00 Acute and subacute hepatic failure without coma; J18.9 Pneumonia, unspecified organism; R65.21 Severe sepsis with septic shock; I50.23 Acute on chronic systolic (congestive) heart failure; D68.9 Coagulation defect, unspecified; N17.9 Acute kidney failure, unspecified; E87.20 Acidosis, unspecified; I48.20 Chronic atrial fibrillation, unspecified; I13.0 Hypertensive heart and chronic kidney disease with heart failure and stage 1 through stage 4 chronic kidney disease, or unspecified chronic kidney disease; R57.0 Cardiogenic shock; I49.01 Ventricular fibrillation; I27.20 Pulmonary hypertension, unspecified; N18.30 Chronic kidney disease, stage 3 unspecified; I50.82 Biventricular heart failure; I25.10 Atherosclerotic heart disease of native coronary artery without angina pectoris; E78.5 Hyperlipidemia, unspecified; E86.9 Volume depletion, unspecified; Z79.899 Other long term (current) drug therapy; Z95.2 Presence of prosthetic heart valve; Z51.5 Encounter for palliative care